=== PATIENT | female | born 2005 | race Caucasian/White ===

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

== ENCOUNTER → 2025-03-08 12:03 | Outpatient (BNVA) | payer MEDICAID, SELFPAY | PROVIDERS: PCP Nurse Practitioner; Visit Provider Nurse Practitioner | DX: F79 Unspecified intellectual disabilities (principal); F91.3 Oppositional defiant disorder; J30.89 Other allergic rhinitis | CPT/HCPCS: 80053; 84443; 85025 ==

== ENCOUNTER 2025-04-12 20:48 | Inpatient (IN) | payer MEDICAID, SELFPAY ==
[2025-04-12 20:51] VITALS: BP 132/85; PULSE 89; RESP 18; TEMP 36.5; O2SAT 100; BMI 39.6
--- NOTE | 2025-04-12 21:45 | ECG_ITS ---
[facility] Test Date: 2025-04-12 Pat Name: Alphonse Marinelli Department: Room: Gender: Female Education Specialist: : 2005 Requested By: Tamara Delarosa Order Number: [id number] Tracey MD: Quinton Rodriguez M.D. Measurements Intervals [place] Rate: 83 P: 31 AL: 136 QRS: 66 QRSD: 81 T: 14 QT: 352 QTc: 415 Interpretive Statements SINUS RHYTHM No previous ECG available for comparison Electronically Signed On 04-18-2025 11:52:28 CDT by Quinton Rodriguez M.D. [email or web address]
--- NOTE | 2025-04-12 21:47 | ED.C_ITS ---
HPI - Psych 2 General: Chief Complaint: Psychiatric Symptoms Stated Complaint: SI Time Seen by Provider: 04/12/25 20:50 History of Present Illness: 19-year-old female with a history of dep ression, oppositional defiant disorder, anxiety who presents to the emergency room with suicidal thoughts. She says she has been thinking of suicide a lot lately and its gotten worse today. She was having thoughts of a sibling that recently. She says she would kill herself with a gun if she could. She does not have access. Related Data Home Medications ?Medication ?Instructions ?Recorded ?Confirmed aripiprazole 5 mg tablet 5 mg PO DAILY 02/02/2503/08 prazosin 1 mg capsule 1 mg PO .HS 02/02/25 5 sertraline 50 mg tablet 50 mg PO TID 02/02/25 Previous Rx's ?Medication ?Instructions ?Recorded azelastine 137 mcg (0.1 %) nasal 2 spray intranasal BI D #30 mL 02/02/25 spray melatonin 3 mg tablet 3 mg PO .HS #30 tabs 5 norgestimate-ethinyl estradiol 1 tab PO DAILY #84 tabs 02/02/25 0.18mg/0.215mg/0.25mg-0.035mg(28)tablet (Tri-Sprintec (28)) Allergies Allergy/AdvReac Type Severity Reaction Status Date / Time No Known Allergies Allergy Verified 03/08/25 11:38 Review of Systems 2 Narrative: Constitutional symptoms: Negative except as documented in HPI. Skin symptoms: Negative except as documented in HPI. Eye symptoms: Negative except as documented in HPI. ENMT symptoms: Negative except as documented in HPI. Respiratory symptoms: Negative except as documented in HPI. Cardiovascular symptoms: Negative except as documented in HPI. Gastrointestinal symptoms: Negative except as documented in HPI. Genitourinary symptoms: Negative except as documented in HPI. Musculoskeletal symptoms: Negative except as documented in HPI. Neurologic symptoms: Negative except as documented in HPI. Psychiatric symptoms: Negative except as documented in HPI. Endocrine symptoms: Negative except as documented in HPI. PFSH ED 2 PFSH: Medical History (Updated 04/12/25 @ 21:50 by Tamara De Guzman MD) Oppositional defiant disorder Generalized anxiety disorder Pneumonia Cerumen impaction Oral contraceptive pill surveillance Sleep disorder Environmental and seasonal allergies Surgical History No history of previous surgery Family History Other Adopted Social History Smoking and tobacco/nicotine status: former use of tobacco/nicotine Second hand smoke exposure: No Alcohol intake: never Substance/Drug Use: never Adopted: Yes Caregiver/support person: Yes Lives independently: No Household members: caregiver Housing: House Marital status: Single Number of children: 0 Highest education level completed: 12th Grade, No Diploma service: No Current occupational status: disabled Pets and animals: No Do you think of yourself as: Straight/Heterosexual Current gender identity: Female Female Reproductive History: Date of last menstrual period: 04/11/25 Physical Exam 2 Narrative: EXAM NARRATIVE: General: Alert, no acute distress. Skin: Warm, dry. Head: Normocephalic, atraumatic. Neck: Supple, trachea midline. Eye: Extraocular movements are intact. Ears, nose, mouth and throat: mucosa moist. Cardiovascular: Regular, Normal peripheral perfusion. Respiratory: Lungs are clear to auscultation, respirations are non-labored, breath sounds are equal, Symmetrical chest wall expansion. Gastrointestinal: Soft, Nontender, Non distended Musculoskeletal: Normal ROM, no deformity. Neurological: Alert and oriented, No focal neurological deficit observed. Psychiatric: Cooperative, expresses suicidal thoughts. Course 2 Vital Signs: Vital signs: Vital Signs Temperature 97.7 F 04/12/25 20:51 Pulse Rate 89 04/12/25 20:51 Respiratory Rate 18 04/12/25 20:51 Blood Pressure 132/85 04/12/25 20:51 Pulse Oximetry 100 04/12/25 20:51 Oxygen Delivery Me thod Room Air 04/12/25 20:51 MDM - Psych Medical Decision Making Differential diagnosis: Patient with reported depression and suicidal ideation. concerns for infection, alcohol intoxication, cardiac issues or other medical problems prior to psychiatric admission. Workup: labwork, ekg ordered to evaluate the pathologies and to clear the patient medically prior to psychiatric admission Lab Review: Laboratory results were reviewed and interpreted by myself the emergency room physician. - Medically cleared. - EKG shows no ischemic changes. - Blood alcohol level is negative, -Tylenol and salicylate levels are negative. - Drug screen is negative - No signs of infection, urinalysis clear and white count is not elevated - No anemia. - BUN and creatinine are within normal limits. Consultation: I spoke with Dr. Gutierrez who is on-call for psychiatry who agrees to admission Assessment and plan: Depression Suicidal ideation -Admission to neuropsychiatric unit for continued evaluation and treatment. - All lab work was reviewed and interpreted personally by myself, the ER physician - Evaluation and treatment of this problem were appropriate in the emergency setting Lab Data 04/12/25 22:27 04/12/25 22:17 Laboratory Results WBC 10.28 10^3/uL (4.5-13.0) 04/12/25 22:27 Corrected WBC Cancelled 04/12/25 21:15 RBC 4.64 10^6/uL (3.85-5.65) 04/12/25 22:27 Hgb 12.90 g/dL (12.4-14.8) 04/12/25 22:27 Hct 39.8 % (36-47) 04/12/25 22:27 MCV 85.8 fl (85-98) 04/12/25 22: MCH 27.8 pg (27-33) 04/12/25 22: MCHC 32.4 g/dL (30-55) 04/12/25 22:27 RDW 13.2 % (12.1-15.1) 04/12/25 22:27 Plt Count 360 10^3/cmm (157-399) 04/12/25 22:27 MPV 9.0 fL (7.4-10.4) 04/12/25 22:27 Gran % Cancelled 04/12/25 21:15 Neut % (Auto) 66.6 % 04/12/25 22:27 Lymph % (Auto) 23.2 % 04/12/25 22:27 [place] % (Auto) 8.9 % 04/12/25 22: Eos % (Auto) 0.6 % 04/12/25 22: Baso % (Auto) 0.3 % 04/12/25 22: Neut # (Auto) 6.85 10^3/uL (1.8-8.0) 04/12/25 22:27 Lymph # (Auto) 2.4 10^3/uL (1.5-6.5) 04/12/25 22:27 [place] # (Auto) 0.9 10^3/uL (0.2-0.9) 04/12/25 22:27 Eos # (Auto) 0.1 10^3/uL (0.0-0.8) 04/12/25 22:27 Baso # (Auto) 0.0 10^3/uL (0.0-0.1) 04/12/25 22:27 Absolute Gran (auto) Cancelled 04/12/25 21:15 Nucleated RBC % (auto) 0 % 04/12/25 22: Nucleated RBCs # 0.0 /100WBC 04/12/25 22:27 Sodium 140 mmol/L (136-145) 04/12/25 22:17 Potassium 4.1 mmol/L (3.5-5.1) 04/12/25 22:17 Chloride 104 mmol/L (98-107) 04/12/25 22:17 Carbon Dioxide 22 mmol/L (22-29) 04/12/25 22:17 Anion Gap 18.1 (5-19) 04/12/25 22:17 BUN 11 mg/dL (6-20) 04/12/25 22:17 Creatinine 0.7 mg/dL (0.5-0.9) 04/12/25 22:17 GFR Calculation 107.8 mL/min (90-130) 04/12/25 22:17 Glucose 91 mg/dL (65-115) 04/12/25 22:17 Calculated Osmolality 289 mOsm/kg (285-295) 04/12/25 22:17 Calcium 9.3 mg/dL (8.5-10.5) 04/12/25 22:17 Total Bilirubin 0.2 mg/dL (0.15-1.2) 04/12/25 22:17 AST 28 U/L (0-32) 04/12/25 22:17 ALT 27 U/L (0-33) 04/12/25 22:17 Alkaline Phosphatase 65 U/L (35-105) 04/12/25 22:17 Total Protein 6.7 g/dL (6.6-8.7) 04/12/25 22:17 Albumin 3.9 g/dL (3.5-5.2) 04/12/25 22:17 Globulin 2.8 g/dL (1.3-4.6) 04/12/25 22:17 TSH 2.96 uIU/mL (0.27-4.20) 04/12/25 22:17 Salicylates < 0.3 mg/dL (3-10) L 04/12/25 22:17 Acetaminophen < 5.0 ug/mL (10-30) L 04/12/25 22:17 Ethyl Alcohol < 10 mg/dL (0-10) 04/12/25 22:17 All radiology interpretation(s) finalized by discharge Discharge Plan Discharge Patient Disposition: Admitted As Inpatient Clinical Impression: Suicidal ideation, Depression Condition: Stable Coding Level of Care Code ED Inclusion Special Education Teacher for Carlyn Grullon
[2025-04-12 22:31] LABS: Basophils % 0.3 %; Eosinophils # 0.1 10^3/uL (0.0-0.8); Eosinophils % 0.6 %; Hematocrit 39.8 % (36-47); Lymphocytes # 2.4 10^3/uL (1.5-6.5); Lymphocytes % 23.2 %; Mean Corpuscular HGB Conc 32.4 g/dL (30-55); Mean Corpuscular Hemoglobin 27.8 pg (27-33); Mean Corpuscular Volume 85.8 fl (85-98); Monocytes # 0.9 10^3/uL (0.2-0.9); Monocytes % 8.9 %; Neutrophils # 6.85 10^3/uL (1.8-8.0); Neutrophils % 66.6 %; Nucleated Red Blood Cells % 0 %; Platelet Count 360 10^3/cmm (157-399); Red Blood Count 4.64 10^6/uL (3.85-5.65); Red Cell Distribution Width 13.2 % (12.1-15.1); White Blood Count 10.28 10^3/uL (4.5-13.0)
[2025-04-12 22:53] LABS: Alanine Aminotransferase 27 U/L (0-33); Albumin Level 3.9 g/dL (3.5-5.2); Alkaline Phosphatase 65 U/L (35-105); Anion Gap 18.1 (5-19); Aspartate Amino Transferase 28 U/L (0-32); Blood Urea Nitrogen 11 mg/dL (6-20); Calcium 9.3 mg/dL (8.5-10.5); Carbon Dioxide 22 mmol/L (22-29); Chloride 104 mmol/L (98-107); Creatinine Clr Calc Pharmacy 175.8715; Globulin 2.8 g/dL (1.3-4.6); Glomerular Filtration Rate 107.8 mL/min (90-130); Glucose 91 mg/dL (65-115); Osmolality Calculated 289 mOsm/kg (285-295); Potassium 4.1 mmol/L (3.5-5.1); Sodium 140 mmol/L (136-145); Thyroid Stimulating Hormone 2.96 uIU/mL (0.27-4.20); Total Bilirubin 0.2 mg/dL (0.15-1.2); Total Protein 6.7 g/dL (6.6-8.7)
[2025-04-12 23:05] LABS: Acetaminophen < 5.0 ug/mL (10-30); Alcohol Level < 10 mg/dL (0-10); Salicylate < 0.3 mg/dL (3-10)
--- NOTE | 2025-04-12 23:52 | PC.NURSE ---
96 Hour Involuntary Hold Patient Rights have been reviewed with the patient and a copy of the same has been provided to her. Vehicle Damage Appraiser Kyle Taylor was present at chair side during the presentation of Rights.
--- NOTE | 2025-04-12 23:55 | PC.NURSE ---
ER Lpn Medical Assistant, Jadyn, received a call from patient's Guardian stating that when the patient becomes upset, she starts accusing male staff of being inappropriate towards her.
[2025-04-13 00:14] VITALS: BP 120/83; PULSE 92; RESP 18; TEMP 36.6; O2SAT 98
--- NOTE | 2025-04-13 00:50 | PC.ADMIT ---
[address] Admission Note: The patient,Alphonse Marinelli,19 y/o, was given written information regarding hospital policies, unit procedures and contact persons. Patient's smoking status: former smoker. Vital Signs - 8 hr 04/12/25 20:51 04/13/25 00:16 Temperature 97.7 F Pulse Rate 89 Respiratory Rate 18 Blood Pressure 132/85 Pulse Oximetry 100 Oxygen Delivery Method Room Air Room Air Pt. stated she was having SI. Pt. says her brother past away about one year ago d/t alcohol posioning. Brother was 20 y/o. Pt. stated when she lived with her parents she threatened to kill them and other family members and that is why she is living in a [facility] house. Pt. says her parents have nothing to do with her anymore because of this. Pt. has some cuts on her left lower calf that are straight across states she did this with a razor blade. Pt. is very quite and seems to have some intellectual disablities. Pt. stated she has not taken her prescription medications in about a week. Pt. says she is unable to read, someone has to read to her, but she can write some.
[2025-04-13 04:52] VITALS: BP 104/65; PULSE 86; RESP 17; TEMP 36.8; O2SAT 98
--- OUTSIDE RECORDS SUMMARY | 2025-04-13 06:17 | XMS_ITS | Encounter Summary ---
Author Organization [facility] Address [address] [place] [address] Care Team Providers Care Competency Evaluated Nurse Aide Name Role Phone Gisela Porras MD Primary Care Provider Encounter Details Date Type Department Care Team (Late st Contact Info) Description 10/19/2007 Outpatient Historical [facility] Ophthalmology 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
--- OUTSIDE RECORDS SUMMARY | 2025-04-13 06:17 | XMS_ITS | Encounter Summary ---
Author Organization [facility] Address [address] [place] [address] Care Team Providers Care Wind Energy Technician Name Role Phone Gisela Porras MD Primary Care Provider Encounter Details Date Type Department Care Team (Latest Contact Info) Description 08/08/2006 Outpatient Historical [facility] Monroe Rdz MD NO ADDRESS ON FILE Acute Upper Respiratory Infections of Unspecified Site (Primary Dx) Social History Tobacco Use Types Packs/Day Years Used Date Smoking Tobacco: Never Assessed Comments Unknown Sex and Gender Information Value Date Recorded Sex Assigned at Not on file 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
--- OUTSIDE RECORDS SUMMARY | 2025-04-13 06:17 | XMS_ITS | Encounter Summary ---
Author Organization [facility] Address [address] [facility] [place] [address] Care Team Providers Care Spinning Lathe Operator Automatic Name Role Phone Gisela Porras MD Primary Care Provider Encounter Details Date Type Department Care Team (Latest Contact Info) Description 2005 Outpatient Historical [facility] acks [address] 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 Gender Identity Not on file Sexual Orientation Not on file documented as of this encounter Plan of Treatment Not on file documented as of this encounter Visit Diagnoses Diagnosis Routine child health exam- Primary Routine or child health check Need for prophylactic vaccination against Hemophilus influenza type B (Hib) Need for prophylactic vaccination against Streptococcus pneumoniae (pneumococcus) Need for prophylactic vaccination against streptococcus pneumoniae (pneumococcus) Need for prophylactic vaccination and inoculation against other combinations of diseases documented in this encounter Care Teams Spinning Lathe Operator Automatic Relationship Specialty Start Date End Date Gisela Porras MD [address] [facility] [address] [place] [address] PCP - General Family Practice 11/04/16 documented as of this encounter
--- OUTSIDE RECORDS SUMMARY | 2025-04-13 06:17 | XMS_ITS | Encounter Summary ---
Author Organization [facility] Address [address] [place] [address] Care Team Providers Care Coil Machine Operator Name Role Phone Gisela Porras MD Primary Care Provider Encounter Details Date Type Department Care Team (Late st Contact Info) Description 2005 Inpatient Historical [facility] Monroe Rdz MD NO ADDRESS ON FILE SINGL BORN IN HOSP-NO C/DELIVERY (Primary Dx) Social History Tobacco Use Types Packs/Day Years Used Date Smoking Tobacco: Never Assessed Comments Unknown Sex and Gender Information Value Date Recorded Sex Assigned at Not on file Legal Sex Female 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 Gender Identity Not on file Sexual Orientation Not on file documented as of this encounter Plan of Treatment Not on file documented as of this encounter Procedures Procedure Name Priority Date/Time Associated Diagnosis Comments METABOLIC SCREEN Routine 2005 12:15 AM PRECISION LATHE OPERATOR POC GLUCOSE Routine 2005 8:49 PM PRECISION LATHE OPERATOR POC GLUCOSE Routine 2005 3:41 PM PRECISION LATHE OPERATOR POC GLUCOSE Routine 2005 3:10 PM PRECISION LATHE OPERATOR DRUG SCREEN, MECONIUM Routine 2005 10:03 AM PRECISION LATHE OPERATOR documented in this encounter Results * METABOLIC SCREEN (2005 12:15 AM PRECISION LATHE OPERATOR) PKU Sent to Reference Lab INTERFACE SYSTEM 2005 12:1 5 AM PRECISION LATHE OPERATOR us Monroe Rdz MD CHEMISTRY ORDERABLES Final Res ult Performing Organization Address [facility] Co de Phone Number INTERFACE SYSTEM Refer to clinic/hospital department * POC GLUCOSE (2005 8:49 PM PRECISION LATHE OPERATOR) GLUCOSE POC 72 50 - 80 mg/dL INTERFACE SYSTEM 2005 8:49 PM PRECISION LATHE OPERATOR us Monroe Rdz MD POINT OF CARE TESTING Final Re sult Performing Organization Address [facility] de Phone Number INTERFACE SYSTEM Refer to clinic/hospital department * POC GLUCOSE (2005 3:41 PM PRECISION LATHE OPERATOR) GLUCOSE POC 62 50 - 80 mg/dL INTERFACE SYSTEM 2005 3:41 PM PRECISION LATHE OPERATOR us Jamir Hilton MD POINT OF CARE TESTING Analia l Result Performing Organization Address [facility] de Phone Number INTERFACE SYSTEM Refer to clinic/hospital department * (ABNORMAL) POC GLUCOSE (2005 3:10 PM PRECISION LATHE OPERATOR) GLUCOSE POC 48(L) 50 - 80 mg/dL INTERFACE SYSTEM 2005 3:10 PM PRECISION LATHE OPERATOR us Jamir Hilton MD POINT OF CARE TESTING Analia l Result Performing Organization Address [facility] de Phone Number INTERFACE SYSTEM Refer to clinic/hospital department * DRUG SCREEN, MECONIUM (2005 10:03 AM PRECISION LATHE OPERATOR) DRUG SCREEN, MECONIUM Sent to Reference Lab INTERFACE SYSTEM 2005 10:0 3 AM PRECISION LATHE OPERATOR us Jamir Hilton MD BODY FLUIDS AND STOOLS COM Final Result INTERFACE SYSTEM Refer to clinic/hospital department documented in this encounter Visit Diagnoses Diagnosis Single liveborn, born in hospital, delivered without mention of delivery- Primary documented in this encounter Care Teams Coil Machine Operator Relationship Specialty Start Date End Date Gisela Porras MD [address] [address] PCP - General Family Practice 11/04/16 documented as of this encounter
--- OUTSIDE RECORDS SUMMARY | 2025-04-13 06:17 | XMS_ITS | Encounter Summary ---
Author Organization [facility] Address [address] [place] [address] Care Team Providers Care Patient Registration Specialist Name Role Phone Gisela Porras MD Primary Care Provider Encounter Details Date Type Department Care Team (Latest Contact Info) Description 01/01/2006 Outpatient Historical [facility] Ophthalmology 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
--- OUTSIDE RECORDS SUMMARY | 2025-04-13 06:17 | XMS_ITS | Encounter Summary ---
Author Organization [facility] Address [address] [facility] [place] [address] Care Team Providers Care Stem Roller Name Role Phone Gisela Porras MD Primary Care Provider Encounter Details Date Type Department Care Team (Latest Contact Info) Description 11/24/2008 Inpatient Historical [facility] Outpatient Surgery [address] [facility] [place] [address] Jamir Reyes, DDS [address] [place] [address] Unspecified Dental Caries (Primary Dx) Social History Tobacco Use Types Packs/Day Years Used Date Smoking Tobacco: Never Assessed Comments Unknown Sex and Gender Information Value Date Recorded Sex Assigned at Not on file Legal 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
--- OUTSIDE RECORDS SUMMARY | 2025-04-13 06:17 | XMS_ITS | Encounter Summary ---
Author Organization [facility] Address [address] [facility] [address] Care Team Providers Care Lab Animal Technician Name Role Phone Gisela Porras MD Primary Care Provider [phone] Encounter Details Date Type Department Care Team (Latest Contact Info) Description 2005 Outpatient Historical [facility] [address] 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
--- OUTSIDE RECORDS SUMMARY | 2025-04-13 06:17 | XMS_ITS | Encounter Summary ---
Author Organization [facility] Address [address] [facility] [place] [address] Care Team Providers Care Athlete Marketing Agent Name Role Phone Gisela Porras MD Primary Care Provider Encounter Details Date Type Department Care Team (Latest Contact Info) Description 05/06/2006 Outpatient Historical [facility] [address]ks [address] 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 Gender Identity Not on file Sexual Orientation Not on file documented as of this encounter Plan of Treatment Not on file documented as of this encounter Visit Diagnoses Diagnosis Routine child health exam- Primary Routine infant or child health check Need for prophylactic vaccination against Streptococcus pneumoniae (pneumococcus) Need for prophylactic vaccination against streptococcus pneumoniae (pneumococcus) Need for prophylactic vaccination and inoculation against other combinations of diseases documented in this encounter Care Teams Athlete Marketing Agent Relationship Specialty Start Date End Date Gisela Porras MD [address] [facility] [address] [place] [address] PCP - General Family Practice 11/04/16 documented as of this encounter
--- OUTSIDE RECORDS SUMMARY | 2025-04-13 06:17 | XMS_ITS | Encounter Summary ---
Author Organization [facility] Address [address] [facility] [place] [address] Care Team Providers Care Steel Wheel Engraver Name Role Phone Gisela Porras MD Primary Care Provider [phone] Encounter Details Date Type Department Care Team (Latest Contact Info) Description 2005 Outpatient Historical [facility] acks [address] 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
--- OUTSIDE RECORDS SUMMARY | 2025-04-13 06:17 | XMS_ITS | Clinical Summary ---
Author Organization [facility] Address [address] [facility] [place] [address] Care Team Providers Care Community Administrator Name Role Phone Gisela Porras MD Primary Care Provider Allergies No known active allergies Medications medroxyPROGESTERo ne (DEPO-PROVERA) 150 mg/mL SyringeIndication s:Encounter for initial prescription of contraceptive pills Inject 1 mL (150 mg) by intramuscular injection every 90 days. 1 mL 3 02/10/20 19 Active fluticasone propionate (FLONASE) 50 mcg/spray [place], Suspension nasal inhaler Administer 2 Sprays in each nostril daily. 16 Gram 2 05/17/20 19 Active montelukast (SINGULAIR) 5 mg Tablet, Chewable Take 1 Tab (5 mg) by mouth daily.. 30 Tablet 2 05/17/20 19 Active azithromycin (ZITHROMAX) 200 mg/5 mL suspensionIndicat ions:Upper respiratory tract infection, unspecified type,Acute bronchitis, unspecified organism Take 2 tsp now then 1 tsp x 4 days po. 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 Oppositional defiant disorder, mild 02/09/2019 Generalized anxiety disorder 02/09/2019 Persistent depressive disord er with anxious distress, currently mild 02/09/2019 Intellectual disability 02/09/2019 Heart murmur 03/17/2013 Regular astigmatism 09/27/2009 Unspecified congenital cataract Myopia Patient denies relevant medical history Delayed milestones Immunizations Immunization Administration Dates Next Due (M-M-R II/PRIORIX)(12 MO UP) MEASLES, MUMPS AND RUBELLA VIRUS VACCINE, 0.5 ML IM/SUBCUT 05/18/2007 (VARIVAX)(12 MOS UP)VARICELL A VIRUS VACCINE (PF) 0.5 ML, SUB CUT 05/18/2007 Dt Dtp Dtap Vaccine 05/18/2007, 6,03/18/2006,2005 HIB, Unspecified Formulation 05/18/2007,03/18/20 06,2005 Hepatitis B Vaccine 05/06/2006,03/18/2006,2005 IPV/OPV 05/06/2006,03/18/2006,2005 Pneumococcal 7-valent conjug ate vaccine IM 05/06/2006,03/18/2006,2005 Family History Medical History Relation Name Comments Amblyopia Neg Hx Blindness Neg Hx Cataract Neg Hx Detachment/Tears Neg Hx Glaucoma Neg Hx Macular Degen Neg Hx Strabismus Neg Hx Social History Tobacco Use Types Packs/Day Years Used Date Smoking Tobacco: Never Comments No Sex and Gender Information Value Date Recorded Sex Assigned at Not on file 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 Gender Identity Not on file Sexual Orientation Not on file Occupation Industry Job Start Date Job End Date Not on file Not on file Not on file Not on file Last Filed Vital Signs Vital Sign Reading Time Taken Comments Blood Pressure 100/60 05/17/2019 3:22 PM CDT Pulse 88 05/17/2019 3:22 PM CDT Temperature 36.4 C (97.6 F) 05/17/2019 3:22 PM CDT Respiratory Rate 20 05/17/2019 3:22 PM CDT Oxygen Saturation 98% 05/17/2019 3:22 PM CDT Inhaled Oxygen Concentration - - Weight 40.4 kg (89 lb) 05/17/2019 3:22 PM CDT Height 146.1 cm (4' 9.5 ) 05/17/2019 3:22 PM CDT Body Mass Index 18.93 05/17/2019 3:22 PM CDT Body Mass Index Percentile 47.90% 05/17/2019 3:2 2 PM CDT Growth Chart: CDC (Girls, 2- 20 Years) Plan of Treatment Health Maintenance Due Date Last Done Comments HEPATITIS B VACCINES (4 of 4 - 4-dose series) 05/13/2006 05/06/2006, 03/18/2006, 2005 CHLAMYDIA SCREENING (ANNUAL) 11-24 YEARS 2016 DTAP/TDAP/TD VACCINES (5 - Tdap) 2016 05/18/2007, 05/06/2006, 03/18/2006, Additional history exists HPV VACCINES (1 - 3-dose series) 2020 INFLUENZA VACCINE (#1) 2024 Preventative Visit-Managed Medicaid 2024 05/06/2006, 03/18/2006, 2005, Additional history exists Insurance [place] Care Teams Community Administrator Relationship Specialty Start Date End Date Gisela Porras MD [address] [address] PCP - General Family Practice 11/04/16
--- OUTSIDE RECORDS SUMMARY | 2025-04-13 06:17 | XMS_ITS | Encounter Summary ---
Author Organization [facility] Address [address] [facility] [place] [address] Care Team Providers Care Supervisor Slitting And Shipping Name Role Phone Gisela Porras MD Primary Care Provider Encounter Details Date Type Department Care Team (Latest Contact Info) Description 2005 Outpatient Historical [facility] acks [address] 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
--- OUTSIDE RECORDS SUMMARY | 2025-04-13 06:17 | XMS_ITS | Encounter Summary ---
Author Organization [facility] Address [address] [place] [address] Care Team Providers Care Digital Director Name Role Phone Gisela Porras MD Primary Care Provider [phone] Encounter Details Date Type Department Care Team (Latest Contact Info) Description 03/18/2006 Outpatient Historical [facility] ac[address] 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
--- OUTSIDE RECORDS SUMMARY | 2025-04-13 06:17 | XMS_ITS | Encounter Summary ---
Author Organization [facility] Address [address] [place] [address] Care Team Providers Care Manual Tester Name Role Phone Gisela Porras MD Primary Care Provider Encounter Details Date Type Department Care Team (Latest Contact Info) Description 01/28/2006 Outpatient Historical [address] [place] [address] Frank Stanton MD NO ADDRESS ON FILE Infectious Colitis, Enteritis, and Gastroenteritis (Primary Dx); Edema Social History Tobacco Use Types Packs/Day Years Used Date Smoking Tobacco: Never Assessed Comments Unknown Sex and Gender Information Value Date Recorded Sex Assigned at Not on file 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
--- OUTSIDE RECORDS SUMMARY | 2025-04-13 06:17 | XMS_ITS | Encounter Summary ---
Author Organization [facility] Address [address] [place] [address] Care Team Providers Care Impregnator And Drier Helper Name Role Phone Gisela Porras MD Primary Care Provider Encounter Details Date Type Department Care Team (Latest Contact Info) Description 01/29/2006 Outpatient Historical [address] [place] [phone] Monroe Rdz MD NO ADDRESS ON FILE Infectious Colitis, Enteritis, and Gastroenteritis (Primary Dx); Edema Social History Tobacco Use Types Packs/Day Years Used Date Smoking Tobacco: Never Assessed Comments Unknown Sex and Gender Information Value Date Recorded Sex Assigned at Not on file 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
--- OUTSIDE RECORDS SUMMARY | 2025-04-13 06:17 | XMS_ITS | Encounter Summary ---
Author Organization [facility] Address [address] [place] [address] Care Team Providers Care Occupational Medicine Specialist Name Role Phone Gisela Porras MD Primary Care Provider [phone] Encounter Details Date Type Department Care Team (Latest Contact Info) Description 10/10/2006 Outpatient Historical [facility] [address] [place] [address] Fabi Briones MD NO ADDRESS ON FILE Infectious Colitis, Enteritis, and Gastroenteritis (Primary Dx) Social History Tobacco Use Types Packs/Day Years Used Date Smoking Tobacco: Never Assessed Comments Unknown Sex and Gender Information Value Date Recorded Sex Assigned at Not on file 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
--- OUTSIDE RECORDS SUMMARY | 2025-04-13 06:17 | XMS_ITS | Encounter Summary ---
Author Organization [facility] Address [address] [place] [address] Care Team Providers Care Senior National Account Manager Name Role Phone Gisela Porras MD Primary Care Provider Encounter Details Date Type Department Care Team (Latest Contact Info) Description 10/13/2006 Outpatient Historical [facility] 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
--- OUTSIDE RECORDS SUMMARY | 2025-04-13 06:17 | XMS_ITS | Encounter Summary ---
Author Organization [facility] Address [address] [place] [address] Care Team Providers Care Engagement Manager Name Role Phone Gisela Porras MD Primary Care Provider [phone] Encounter Details Date Type Department Care Team (Late st Contact Info) Description 10/10/2006 Outpatient Historical [facility] Cruzito Mccord, DO [address] [place], [place] [phone] Vomiting Alone (Primary Dx) Social History Tobacco Use Types Packs/Day Years Used Date Smoking Tobacco: Never Assessed Comments Unknown Sex and Gender Information Value Date Recorded Sex Assigned at Not on file Legal Sex Female 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 Gender Identity Not on file Sexual Orientation Not on file documented as of this encounter Plan of Treatment Not on file documented as of this encounter Procedures Procedure Name Priority Date/Time Associated Diagnosis Comments URINALYSIS MICROSCOPY ONLY Routine 10/10/2006 2:23 PM BRICK VENEER MAKER URINALYSIS W/REFLEX MICROSCOPIC Routine 10/10/2006 2:23 PM BRICK VENEER MAKER documented in this encounter Results * (ABNORMAL) URINALYSIS MICROSCOPY ONLY (10/10/2006 2:23 PM BRICK VENEER MAKER) WBC URINE None Seen 0 - 2 INTERFACE SYSTEM RBC UA None Seen 0 - 2 INTERFACE SYSTEM HYALINE CAST None Seen 0 - 2 INTERFA CE SYSTEM BACTERIA UA Small(A) None Seen INTERFAC E SYSTEM 10/10/2006 2:23 PM BRICK VENEER MAKER us Cruzito Mujica DO URINE ORDERABLES Final Result Performing Organization Address City/[facility] Co de Phone Number INTERFACE SYSTEM Refer to clinic/hospital department * (ABNORMAL) URINALYSIS (10/10/2006 2:23 PM BRICK VENEER MAKER) COLOR UA Yellow Straw INTERFACE SYSTEM Comment:CATH SPECIMEN 2CC CLARITY UA Clear Clear INTERFACE SYSTEM LEUKOCYTE ESTERASE UA NEGATIVE NEGATIVE INTERFACE SYSTEM NITRITE UA NEGATIVE NEGATIVE INTERFACE SYSTEM PH UA 5.5 5.0 - 9.0 INTERFACE SYSTEM PROTEIN UA NEGATIVE NEGATIVE INTERFACE SYSTEM Comment: As of 05 positive protein results obtained on routine urinalysis will not be confirmed by sulfosalicylic acid (SSA) precipitation. Current methodology for protein detection is highly sensitive for detection of albumin; therefore, confirmation is not necessary. GLUCOSE UA NEGATIVE NEGATIVE INTERFACE SYSTEM KETONES UA NEGATIVE NEGATIVE INTERFACE SYSTEM UROBILINOGEN UA 0.2 0.2 INTE RFACE SYSTEM BILIRUBIN UA NEGATIVE NEGATIVE INTERFA CE SYSTEM BLOOD UA NEGATIVE NEGATIVE INTERFACE SYSTEM SPECIFIC GRAVITY UA 1.010 1.005 - 1.030 INTERFACE SYSTEM CLINITEST NEGATIVE INTERFACE SYSTEM MICRO EXAM Yes(A) No INTERFACE SYSTEM 10/10/2006 2:23 PM BRICK VENEER MAKER us Cruzito Mujica DO URINE ORDERABLES Final Result Performing Organization Address City/[facility] Co de Phone Number INTERFACE SYSTEM Refer to clinic/hospital department documented in this encounter Visit Diagnoses Diagnosis Vomiting alone- Primary documented in this encounter Care Teams Engagement Manager Relationship Specialty Start Date End Date Gisela Porras MD [address] [facility] [address] [place] [address] PCP - General Family Practice 11/04/16 documented as of this encounter
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
--- NOTE | 2025-04-13 09:13 | PC.NURSE ---
housing case manager, Elizabeth, spoke to guardian. at this time, guardian is requesting patient have no phone privileges. will relay request to Dr. Gutierrez
[2025-04-13 11:40] LABS: Bilirubin Urine Negative (Negative); Blood Urine 3+ (Negative); Glucose Urine UA Negative (Normal); Ketones Urine Negative (Negative); Leukocyte Esterase Urine Negative (Negative); Nitrate Urine Negative (Negative); Protein Urine Negative (Negative); Specific Gravity, Urine 1.009 (1.005-1.030); Urine Appearance Clear (CLEAR); Urine Color Yellow (Yellow); Urobilinogen Urine 0.2 mg/dL (Negative)
[2025-04-13 11:44] LABS: Add Urine Microscopic? YES; Bacteria Urine None Seen /hpf; Hyaline Casts Urine 0-4 /lpf; RBC Urine >100 /hpf (0-2); Squamous Epithelial Cell Urine 0-5 /hpf (0-5); WBC Urine 0-5 /hpf (0-5)
[2025-04-13 11:46] LABS: HCG Qualitative Urine. Negative (Negative)
[2025-04-13 11:51] LABS: Add Urine Culture? Yes
[2025-04-13 11:59] LABS: Amphetamines Screen Urine Negative (Negative); Barbiturates Screen Urine Negative (Negative); Benzodiazepines Screen Urine Negative (Negative); Cocaine Screen Urine Negative (Negative); Opiate Screen Urine Negative (Negative); PCP Screen Urine Negative (Negative); THC Screen Urine Negative (Negative)
[2025-04-13 14:00] VITALS: BP 111/68; PULSE 88; RESP 16; TEMP 36.6; O2SAT 97
[2025-04-13 19:37] VITALS: BP 121/80; PULSE 83; RESP 17; TEMP 36.7; O2SAT 97
[2025-04-13] MEDS: hyDROXYzine 25 mg Capsule 50 MG PO (21:03)
[2025-04-13] MEDS: trazodone 50 mg Tablet PO (21:03)
[2025-04-14 06:00] VITALS: BP 92/58; PULSE 90; RESP 18; TEMP 36.7; O2SAT 94
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
[2025-04-14 14:00] VITALS: BP 110/76; PULSE 88; RESP 16; TEMP 36.8; O2SAT 97
[2025-04-14] MEDS: trazodone 50 mg Tablet PO (21:11)
[2025-04-14 21:27] VITALS: BP 109/68; PULSE 87; RESP 18; TEMP 36.8; O2SAT 99
[2025-04-15 06:00] VITALS: BP 95/65; PULSE 88; RESP 18; O2SAT 98
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
[2025-04-15 14:00] VITALS: BP 120/76; PULSE 109; RESP 17; TEMP 36.6; O2SAT 100
[2025-04-15] MEDS: trazodone 50 mg Tablet PO (20:19)
[2025-04-15 20:27] VITALS: BP 125/82; PULSE 82; RESP 18; TEMP 36.4; O2SAT 98
[2025-04-16 06:00] VITALS: BP 91/70; PULSE 85; RESP 16; O2SAT 97
[2025-04-16] MEDS: sertraline 100 mg Tablet 150 MG PO (13:22)
[2025-04-16 14:00] VITALS: BP 113/76; PULSE 105; RESP 18; TEMP 36.6; O2SAT 99
[2025-04-16] MEDS: ARIPiprazole 10 mg Tablet PO (14:26)
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
[2025-04-16] MEDS: trazodone 50 mg Tablet PO (20:23)
[2025-04-16 20:50] VITALS: BP 103/62; PULSE 88; RESP 16; TEMP 36.7; O2SAT 96
[2025-04-16] MEDS: prazosin 1 mg Capsule PO (21:59)
[2025-04-17 06:00] VITALS: BP 106/63; PULSE 96; RESP 16; TEMP 36.7; O2SAT 97
[2025-04-17] MEDS: sertraline 100 mg Tablet 150 MG PO (08:49)
[2025-04-17] MEDS: ARIPiprazole 10 mg Tablet PO (08:49)
--- NOTE | 2025-04-17 12:00 | PC.NURSE ---
staff from [facility] will bring in non formulary meds in the am.
[2025-04-17 14:00] VITALS: BP 92/54; PULSE 78; RESP 16; TEMP 36.7; O2SAT 98
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
--- NOTE | 2025-04-17 17:55 | PC.NURSE ---
unable to administer non formulary medciation from home do to meds not being delivered from [facility].
[2025-04-17 19:23] VITALS: BP 104/70; PULSE 96; RESP 18; TEMP 36.7; O2SAT 96
[2025-04-17] MEDS: prazosin 1 mg Capsule 2 MG PO (20:05)
[2025-04-17] MEDS: trazodone 50 mg Tablet PO (20:52)
[2025-04-18 06:00] VITALS: BP 96/68; PULSE 94; RESP 18; TEMP 36.9; O2SAT 97
[2025-04-18] MEDS: ARIPiprazole 10 mg Tablet PO (08:15)
[2025-04-18] MEDS: sertraline 100 mg Tablet 200 MG PO (08:16)
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
[2025-04-18 12:25] VITALS: BP 102/71; PULSE 102; RESP 18; TEMP 36.7; O2SAT 96
[2025-04-18 14:00] VITALS: BP 102/71; PULSE 102; RESP 18; TEMP 36.7; O2SAT 96
== END 2025-04-18 14:17 | disposition home or self-care (01) | DRG 881 ==
LOC: ER 23:49 → NP 23:58
PROVIDERS: Admitting Provider Psychiatry & Neurology Psychiatry; Emergency Provider Emergency Medicine; PCP Nurse Practitioner; Visit Provider Psychiatry & Neurology Psychiatry
DX: F32.A Depression, unspecified (principal); R45.851 Suicidal ideations; F91.3 Oppositional defiant disorder; F79 Unspecified intellectual disabilities; F43.10 Post-traumatic stress disorder, unspecified; F60.3 Borderline personality disorder; E66.01 Morbid (severe) obesity due to excess calories; Z68.38 Body mass index [BMI] 38.0-38.9, adult; Z81.8 Family history of other mental and behavioral disorders; Z81.3 Family history of other psychoactive substance abuse and dependence
CPT/HCPCS: 36415; 80053; 80306; 80307; 81001; 81025; 84443; 85025; 87086; 93005; 97150; 97165; 99285; J9999

== ENCOUNTER 2025-04-20 16:51 | Inpatient (IN) | payer MEDICAID, SELFPAY ==
[2025-04-20 16:55] VITALS: BP 114/74; PULSE 88; RESP 16; TEMP 36.9; O2SAT 98
--- NOTE | 2025-04-20 17:30 | PC.NURSE ---
[facility] staff, Carla, called in regards to patient status/dispo, no further updates available to give at this time. phone number for Carla,
[2025-04-20 17:58] LABS: Basophils % 0.3 %; Eosinophils # 0.1 10^3/uL (0.0-0.8); Eosinophils % 0.7 %; Lymphocytes # 2.3 10^3/uL (1.5-6.5); Mean Corpuscular HGB Conc 32.6 g/dL (30-55); Mean Corpuscular Volume 86.1 fl (85-98); Mean Platelet Volume 9.2 fL (7.4-10.4); Monocytes # 0.7 10^3/uL (0.2-0.9); Monocytes % 7.6 %; Neutrophils # 6.18 10^3/uL (1.8-8.0); Neutrophils % 66.1 %; Nucleated Red Blood Cells % 0 %; Platelet Count 348 10^3/cmm (157-399); Red Blood Count 4.53 10^6/uL (3.85-5.65); Red Cell Distribution Width 13.2 % (12.1-15.1); White Blood Count 9.36 10^3/uL (4.5-13.0)
--- NOTE | 2025-04-20 18:27 | PC.NURSE ---
educated pt on need for urine sample. pt states unable at this time.
[2025-04-20 18:28] LABS: Alanine Aminotransferase 39 U/L (0-33); Alkaline Phosphatase 71 U/L (35-105); Anion Gap 16.8 (5-19); Aspartate Amino Transferase 34 U/L (0-32); Blood Urea Nitrogen 12 mg/dL (6-20); Calcium 8.9 mg/dL (8.5-10.5); Carbon Dioxide 23 mmol/L (22-29); Chloride 103 mmol/L (98-107); Glomerular Filtration Rate 158.9 mL/min (90-130); Glucose 81 mg/dL (65-115); Osmolality Calculated 287 mOsm/kg (285-295); Potassium 3.8 mmol/L (3.5-5.1); Salicylate 0.4 mg/dL (3-10); Sodium 139 mmol/L (136-145); Thyroid Stimulating Hormone 1.25 uIU/mL (0.27-4.20); Total Bilirubin 0.2 mg/dL (0.15-1.2)
[2025-04-20 18:30] LABS: Acetaminophen < 5.0 ug/mL (10-30); Alcohol Level < 10 mg/dL (0-10)
[2025-04-20 18:52] LABS: HCG Qualitative Urine. Negative (Negative)
[2025-04-20 18:55] LABS: Bilirubin Urine Negative (Negative); Blood Urine Negative (Negative); Glucose Urine UA Negative (Normal); Ketones Urine Trace (Negative); Leukocyte Esterase Urine 1+ (Negative); Nitrate Urine Negative (Negative); Protein Urine Negative (Negative); Specific Gravity, Urine 1.027 (1.005-1.030); Urine Appearance Cloudy (CLEAR); Urine Color Yellow (Yellow); pH Urine 5.5 (5-7)
--- NOTE | 2025-04-20 18:55 | PC.NURSE ---
This nurse gave mother/guardian of patient an update on patient status and informed her that nurse would call with any new and pertinent updates.
[2025-04-20 18:58] LABS: Add Urine Microscopic? YES; Bacteria Urine 4+ /hpf; Hyaline Casts Urine 2.05 /lpf; RBC Urine 0-2 /hpf (0-2); WBC Urine 21-50 /hpf (0-5)
[2025-04-20 19:01] LABS: Amphetamines Screen Urine Negative (Negative); Barbiturates Screen Urine Negative (Negative); Benzodiazepines Screen Urine Negative (Negative); Cocaine Screen Urine Negative (Negative); Opiate Screen Urine Negative (Negative); PCP Screen Urine Negative (Negative); THC Screen Urine Negative (Negative)
[2025-04-20 19:11] LABS: Add Urine Culture? Yes
[2025-04-20] MEDS: ciprofloxacin 500 mg Tablet PO (19:24)
--- NOTE | 2025-04-20 19:25 | ED.C_ITS ---
HPI - Psych 2 General: Chief Complaint: Psychiatric Symptoms Stated Complaint: SI Time Seen by Provider: 04/20/25 17:05 History of Present Illness: This patient is a 19-year-old white female who presents to the emergency department with suicidal ideation. Patient states she has been having thoughts of hanging herself for 1 week now. She does have a history of depression. She states she has been taking her medications. Associated symptoms: Reports depression and suicidal ideation Related Data Home Medications ?Medication ?Instructions ?Recorded ?Confirmed Bion Tears (PF) 2 ophthalmic insert as direc ramy 04/13/25 04/13/25 Q4H PRN dry eyes Tri-Sprintec (28) 1 tab PO DAILY 04/13/2503/17 melatonin 10 mg PO BEDTIME 04/13/25 Previous Rx's ?Medication ?Instructions ?Recorded azelastine 137 mcg (0.1 %) nasal 2 spray intranasal BI D #30 mL 02/02/25 spray aripiprazole 10 mg tablet 10 mg PO DAILY 30 days #30 t abs 04/18/25 prazosin 2 mg capsule 2 mg PO BEDTIME 30 days #30 caps 04/18/25 sertraline 100 mg tablet 200 mg (2 x 100 mg) PO DAILY 30 04/18/25 days #60 tabs Allergies Allergy/AdvReac Type Severity Reaction Status Date / Time No Known Allergies Allergy Verified 03/08/25 11:38 Review of Systems 2 General: Reports: 10 or more systems reviewed and unremarkable except in HPI and below Psych: Reports: depression and suicidal ideation [facility] ED 2 PFSH: Medical History (Updated 04/20/25 @ 19:23 by Иван Henderson MD) Oppositional defiant disorder Generalized anxiety disorder Pneumonia Cerumen impaction Oral contraceptive pill surveillance Sleep disorder Environmental and seasonal allergies Surgical History No history of previous surgery Family History Other Adopted Social History Smoking and tobacco/nicotine status: former use of tobacco/nicotine Second hand smoke exposure: No Alcohol intake: never Substance/Drug Use: never Adopted: Yes Caregiver/support person: Yes Lives independently: No Household members: caregiver Housing: House Marital status: Single Number of children: 0 Highest education level completed: 12th Grade, No Diploma service: No Current occupational status: disabled Pets and animals: No Do you think of yourself as: Straight/Heterosexual Current gender identity: Female Physical Exam 2 Const: COMMON NORMALS: no acute distress, patient oriented x3 and no limitations GENERAL APPEARANCE: cooperative and comfortable HENMT: COMMON NORMALS: normocephalic, atraumatic, Normal nasal mucous membranes and turbinates present, moist oral mucous membranes and oropharynx normal HEAD & SCALP: normal to inspection, normocephalic and atraumatic F CUCO & SINUS: normal facial exam NOSE: Normal nasal mucous membranes and turbinates present Eye: COMMON NORMALS: Equal, round and reactive pupils present, EOMs intact bilaterally and conjunctivae normal GENERAL EYE: appearance normal, both eyes and all related structures CONJUNCTIVA: Yes conjunctivae normal PUPIL: Yes Equal, round and reactive pupils present Neck/C-Spine: COMMON NORMALS: supple and no JVD Chest: COMMONS NORMALS: normal inspection of the chest Resp: COMMON NORMALS: normal respiratory effort and clear to auscultation bilaterally AUSCULTATION: clear to auscultation bilaterally Cardio: COMMON NORMALS: no JVD, regular rate, regular rhythm, No gallops present (Cardio), No murmurs present (Cardio) and No rub (Cardio) RATE: r egular rate RHYTHM: regular rhythm GI: COMMON NORMALS: Normal to inspection, nondistended, normoactive bowel sounds present, Soft to palpation and non-tender AUSCULTATION: Yes normoactive bowel sounds PALPATION: Yes Soft to palpation : COMMON NORMALS: Yes no CVA tenderness BLADDER/KIDNEY EXAM: Yes no CVA tenderness Back/Pelvis: COMMON NORMALS: no CVA tenderness and thoracic and lumbar spine normal to inspection Extremity: COMMON NORMALS: normal to inspection Neuro: COMMON NORMALS: patient oriented x3 and CN's II-XII intact bilaterally Psych: COMMON NORMALS: mental status grossly normal, Normal thought process present, cooperative and speech normal APPEARANCE: Yes grossly normal A TTITUDE: Yes calm and Yes engaged ACTIVITY/MOTOR BEHAVIOR: Yes appropriate eye contact SPEECH: Yes normal speech MOOD & AFFECT: Yes euthymic mood THOUGHT PROCESS: Normal thought process present THOUGHT CONTENT: Yes Suicidality present ATTENTION/CONCENTRATION: Yes attention grossly intact MEMORY/COGNITION: Yes memory grossly intact INSIGHT: Fair insight present (Psych) JUDGEMENT: Limited judgement present (Psych) Skin: COMMON NORMALS: no rashes or lesions noted, turgor normal and no jaundice GENERAL SKIN EXAM: no rashes or lesions noted and turgor normal Course 2 Vital Signs: Vital signs: Vital Signs Temperature 98.4 F 04/20/25 16:55 Pulse Rate 88 04/20/25 16:55 Respiratory Rate 16 04/20/25 16:55 Blood Pressure 114/74 04/20/25 16:55 Pulse Oximetry 98 04/20/25 16:55 Oxygen Delivery Me thod Room Air 04/20/25 16:55 MDM - Psych Medical Decision Making Laboratory workup was normal except for the urinalysis reveals a urinary tract infection. I did give her 500 mg of ciprofloxacin p.o. for that. Patient will need to be admitted to the psychiatric unit. I discussed this case with Dr. Gan and he has accepted the patient. Patient will be transferred to the neuropsych floor shortly. She is stable. Lab Data 04/20/25 17:41 04/20/25 17:41 Laboratory Results WBC 9.36 10^3/uL (4.5-13.0) 04/20/25 17:41 RBC 4.53 10^6/uL (3.85-5.65) 04/20/25 17:41 Hgb 12.70 g/dL (12.4-14.8) 04/20/25 17:41 Hct 39.0 % (36-47) 04/20/25 17:41 MCV 86.1 fl (85-98) 04/20/25 17:41 MCH 28.0 pg (27-33) 04/20/25 17:41 MCHC 32.6 g/dL (30-55) 04/20/25 17:41 RDW 13.2 % (12.1-15.1) 04/20/25 17:41 Plt Count 348 10^3/cmm (157-399) 04/20/25 17:41 MPV 9.2 fL (7.4-10.4) 04/20/25 17:41 Neut % (Auto) 66.1 % 04/20/25 17:41 Lymph % (Auto) 25.0 % 04/20/25 17:41 [place] % (Auto) 7.6 % 04/20/25 17:41 Eos % (Auto) 0.7 % 04/20/25 17:41 Baso % (Auto) 0.3 % 04/20/25 17:41 Neut # (Auto) 6.18 10^3/uL (1.8-8.0) 04/20/25 17:41 Lymph # (Auto) 2.3 10^3/uL (1.5-6.5) 04/20/25 17:41 [place] # (Auto) 0.7 10^3/uL (0.2-0.9) 04/20/25 17:41 Eos # (Auto) 0.1 10^3/uL (0.0-0.8) 04/20/25 17:41 Baso # (Auto) 0.0 10^3/uL (0.0-0.1) 04/20/25 17:41 Nucleated RBC % (auto) 0 % 04/20/25 17:41 Nucleated RBCs # 0.0 /100WBC 04/20/25 17:41 Sodium 139 mmol/L (136-145) 04/20/25 17:41 Potassium 3.8 mmol/L (3.5-5.1) 04/20/25 17:41 Chloride 103 mmol/L (98-107) 04/20/25 17:41 Carbon Dioxide 23 mmol/L (22-29) 04/20/25 17:41 Anion Gap 16.8 (5-19) 04/20/25 17:41 BUN 12 mg/dL (6-20) 04/20/25 17:41 Creatinine 0.5 mg/dL (0.5-0.9) 04/20/25 17:41 GFR Calculation 158.9 mL/min (90-130) H 04/20/25 17:41 Glucose 81 mg/dL (65-115) 04/20/25 17:41 Calculated Osmolality 287 mOsm/kg (285-295) 04/20/25 17:41 Calcium 8.9 mg/dL (8.5-10.5) 04/20/25 17:41 Total Bilirubin 0.2 mg/dL (0.15-1.2) 04/20/25 17:41 AST 34 U/L (0-32) H 04/20/25 17:41 ALT 39 U/L (0-33) H 04/20/25 17:41 Alkaline Phosphatase 71 U/L (35-105) 04/20/25 17:41 Total Protein 7.0 g/dL (6.6-8.7) 04/20/25 17:41 Albumin 4.0 g/dL (3.5-5.2) 04/20/25 17:41 Globulin 3.0 g/dL (1.3-4.6) 04/20/25 17:41 TSH 1.25 uIU/mL (0.27-4.20) 04/20/25 17:41 HCG, Qual Negative (Negative) 04/20/25 18:30 Urine Color Yellow (Yellow) 04/20/25 18:30 Urine Appearance Cloudy (CLEAR) A 04/20/25 18:30 Urine pH 5.5 (5-7) 04/20/25 18:30 Ur Specific [place] 1.027 (1.005-1.030) 04/20/25 18:30 Urine Protein Negative (Negative) 04/20/25 18:30 Urine Glucose (UA) Negative (Normal) 04/20/25 18:30 Urine Ketones Trace (Negative) 04/20/25 18:30 Urine Blood Negative (Negative) 04/20/25 18:30 Urine Nitrate Negative (Negative) 04/20/25 18:30 Urine Bilirubin Negative (Negative) 04/20/25 18:30 Urine Urobilinogen 1.0 mg/dL (Negative) 04/20/25 18:30 Ur Leukocyte Esterase 1+ (Negative) A 04/20/25 18:30 Urine RBC 0-2 /hpf (0-2) 04/20/25 18:30 Urine WBC 21-50 /hpf (0-5) H 04/20/25 18:30 Ur Squamous Epith Cells 11-20 /hpf (0-5) H 04/20/25 18:30 Amorphous Sediment Not Reportable 04/20/25 18:30 Urine Bacteria 4+ /hpf (NONE) H 04/20/25 18:30 Hyaline Casts 2.05 /lpf 04/20/25 18:30 Salicylates 0.4 mg/dL (3-10) L 04/20/25 17:41 Urine Opiates Screen Negative ng/mL (Negative) 04/20/25 18:30 Acetaminophen < 5.0 ug/mL (10-30) L 04/20/25 17:41 Ur Barbiturates Screen Negative ng/mL (Negative) 04/20/25 18:30 Ur Phencyclidine Scrn Negative ng/mL (Negative) 04/20/25 18:30 Ur Amphetamines Screen Negative ng/mL (Negative) 04/20/25 18:30 U Benzodiazepines Scrn Negative ng/mL (Negative) 04/20/25 18:30 Urine Cocaine Screen Negative ng/mL (Negative) 04/20/25 18:30 U Marijuana (THC) Screen Negative ng/mL (Negative) 04/20/25 18:30 Ethyl Alcohol < 10 mg/dL (0-10) 04/20/25 17:41 No radiology studies performed this visit Discharge Plan Discharge Patient Disposition: Admitted As Inpatient Clinical Impression: Suicidal ideation Condition: Stable Coding Level of Care Code ED [employer] Worker for Carlyn Grullon
--- NOTE | 2025-04-20 19:40 | PC.NURSE ---
Report was called to Maya RAMOS in NPU; all questions and concerns were addressed at time of report.
--- NOTE | 2025-04-20 19:43 | PC.NURSE ---
This nurse updated Carla that patient was getting admitted. Carla stated to this nurse that she would inform patient's mother/guardian of admission status.
[2025-04-20 20:34] VITALS: BP 122/84; PULSE 87; RESP 18; TEMP 36.6; O2SAT 97
[2025-04-20 20:44] VITALS: BP 122/84; PULSE 87; RESP 18; TEMP 36.6; O2SAT 97
[2025-04-21] MEDS: trazodone 50 mg Tablet PO ×2 (01:05→20:12)
[2025-04-21 06:27] VITALS: BP 105/69; PULSE 72; RESP 17; TEMP 36.8; O2SAT 95
[2025-04-21] MEDS: ARIPiprazole 10 mg Tablet PO (08:07)
[2025-04-21] MEDS: sertraline 100 mg Tablet 200 MG PO (08:07)
[2025-04-21] MEDS: hyDROXYzine 25 mg Capsule 50 MG PO ×2 (12:28→19:39)
[2025-04-21 14:00] VITALS: BP 128/92; PULSE 101; RESP 16; TEMP 36.9; O2SAT 95
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
--- NOTE | 2025-04-21 16:38 | PC.NURSE ---
1500 pt from room 125 bed 1 informed nursing staff that pt stated she wanted to hang herself. when asked why she was feeling this way pt first response was to ask if she was getting a girl to stay with her now, but could not give reasoning why she stated she wanted to use bed cover to hang herself. this staff member removed bedding and pillow. notified doctor of incident.
[2025-04-21] MEDS: haloperidol 5 mg Tablet PO ×2 (17:21→20:33)
[2025-04-21] MEDS: OLANZapine 5 mg ODT PO (19:39)
[2025-04-21] MEDS: prazosin 1 mg Capsule 2 MG PO (20:12)
[2025-04-21 20:39] VITALS: BP 114/81; PULSE 96; RESP 17; TEMP 36.7; O2SAT 99
[2025-04-22 06:00] VITALS: BP 110/77; PULSE 88; RESP 18; TEMP 36.4; O2SAT 98
[2025-04-22] MEDS: ARIPiprazole 10 mg Tablet PO (09:32)
[2025-04-22] MEDS: sertraline 100 mg Tablet 200 MG PO (09:32)
--- NOTE | 2025-04-22 11:15 | PC.NURSE ---
during daily assesment pt states she si with plan to stab herself with a knife or shoot herself with a gun. when asked pt states their guns are all locked up at home though. pt states she is feeling better than yesterday and states she does not intend to hurt herself here.
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
[2025-04-22 14:00] VITALS: BP 116/75; PULSE 69; RESP 16; TEMP 36.6; O2SAT 98
[2025-04-22 20:03] VITALS: BP 124/80; PULSE 84; RESP 19; TEMP 36.4; O2SAT 97; BMI 38.9
[2025-04-22] MEDS: haloperidol 5 mg Tablet PO (20:32)
[2025-04-22] MEDS: prazosin 1 mg Capsule 2 MG PO (20:32)
[2025-04-22] MEDS: trazodone 50 mg Tablet PO (20:35)
[2025-04-23 06:00] VITALS: BP 108/71; PULSE 99; RESP 16; TEMP 36.7; O2SAT 96
[2025-04-23] MEDS: sertraline 100 mg Tablet 200 MG PO (08:54)
[2025-04-23] MEDS: ARIPiprazole 10 mg Tablet PO (08:54)
[2025-04-23] MEDS: hyDROXYzine 25 mg Capsule 50 MG PO ×2 (08:55→13:54)
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
[2025-04-23] MEDS: OLANZapine 5 mg ODT PO ×2 (11:40→18:47)
[2025-04-23 14:00] VITALS: BP 99/50; PULSE 69; RESP 16; TEMP 36.6; O2SAT 98
[2025-04-23 20:09] VITALS: BP 109/68; PULSE 98; RESP 17; TEMP 36.8; O2SAT 97
[2025-04-23] MEDS: prazosin 1 mg Capsule 2 MG PO (20:15)
[2025-04-23] MEDS: trazodone 50 mg Tablet PO ×2 (20:15→21:21)
[2025-04-24 06:00] VITALS: BP 100/68; PULSE 96; RESP 16; TEMP 36.7; O2SAT 98
[2025-04-24] MEDS: sertraline 100 mg Tablet 200 MG PO (07:25)
[2025-04-24] MEDS: trazodone 50 mg Tablet PO (07:25)
[2025-04-24] MEDS: haloperidol 5 mg Tablet PO (07:25)
[2025-04-24] MEDS: ARIPiprazole 10 mg Tablet PO (07:25)
[2025-04-24] MEDS: LORazepam 2 mg Tablet PO (11:36)
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
[2025-04-24 12:31] VITALS: BP 100/68; PULSE 96; RESP 16; TEMP 36.7; O2SAT 98
[2025-04-24 13:44] VITALS: RESP 17
== END 2025-04-24 14:12 | disposition home or self-care (01) | DRG 886 ==
LOC: ER 19:23 → NP 19:40
PROVIDERS: Admitting Provider Psychiatry & Neurology Psychiatry; Emergency Provider Emergency Medicine; PCP Nurse Practitioner; Visit Provider Psychiatry & Neurology Psychiatry
DX: F91.3 Oppositional defiant disorder (principal); R45.851 Suicidal ideations; F32.A Depression, unspecified; F79 Unspecified intellectual disabilities; F43.10 Post-traumatic stress disorder, unspecified; E66.01 Morbid (severe) obesity due to excess calories; Z68.39 Body mass index [BMI] 39.0-39.9, adult; Z87.891 Personal history of nicotine dependence; F34.1 Dysthymic disorder
CPT/HCPCS: 36415; 80053; 80306; 80307; 81001; 81025; 84443; 85025; 87086; 97150; 97165; 99285; J9999

== ENCOUNTER 2025-04-30 16:47 | Emergency (ER) | payer MEDICAID, SELFPAY ==
[2025-04-30 16:50] VITALS: BP 108/69; PULSE 91; RESP 18; TEMP 36.7; O2SAT 97
--- NOTE | 2025-04-30 17:10 | ED.C_ITS ---
HPI - Psych 2 General: Chief Complaint: Psychiatric Symptoms Stated Complaint: mhe Time Seen by Provider: 04/30/25 16:50 History of Present Illness: This patient is a 19-year-old white female who presents to the emergency department with suicidal ideation. Patient has been cutting on herself today. She is been cutting on her hands and forearms. She states she also drank bleach . She brought in a bottle of scrubbing bubbles which is what she states she drank out of. She states she was trying to kill herself. Associated symptoms: Reports depression and suicidal ideation Related Data Previous Rx's ?Medication ?Instructions ?Recorded azelastine 137 mcg (0.1 %) nasal 2 spray intranasal BI D #30 mL 02/02/25 spray aripiprazole 10 mg tablet 10 mg PO DAILY 30 days #30 t abs 04/18/25 prazosin 2 mg capsule 2 mg PO BEDTIME 30 days #30 caps 04/18/25 sertraline 100 mg tablet 200 mg (2 x 100 mg) PO DAILY 30 04/18/25 days #60 tabs Allergies Allergy/AdvReac Type Severity Reaction Status Date / Time No Known Allergies Allergy Verified 03/08/25 11:38 Review of Systems 2 General: Reports: 10 or more systems reviewed and unremarkable except in HPI and below Psych: Reports: depression and suicidal ideation PFSH ED 2 PFSH: Medical History (Updated 04/25/25 @ 00:01 by CONCHITA Dasilva) Oppositional defiant disorder Generalized anxiety disorder Pneumonia Cerumen impaction Oral contraceptive pill surveillance Sleep disorder Environmental and seasonal allergies Surgical History No history of previous surgery Family History Other Adopted Social History Smoking and tobacco/nicotine status: former use of tobacco/nicotine Second hand smoke exposure: No Alcohol intake: never Substance/Drug Use: never Adopted: Yes Caregiver/support person: Yes Lives independently: No Household members: caregiver Housing: House Marital status: Single Number of children: 0 Highest education level completed: 12th Grade, No Diploma service: No Current occupational status: disabled Pets and animals: No Do you think of yourself as: Straight/Heterosexual Current gender identity: Female Physical Exam 2 Const: COMMON NORMALS: no acute distress, patient oriented x3 and no limitations GENERAL APPEARANCE: cooperative and comfortable HENMT: COMMON NORMALS: normocephalic, atraumatic, Normal nasal mucous membranes and turbinates present, moist oral mucous membranes and oropharynx normal HEAD & SCALP: normal to inspection, normocephalic and atraumatic F CUCO & SINUS: normal facial exam NOSE: Normal nasal mucous membranes and turbinates present Eye: COMMON NORMALS: Equal, round and reactive pupils present, EOMs intact bilaterally and conjunctivae normal GENERAL EYE: appearance normal, both eyes and all related structures CONJUNCTIVA: Yes conjunctivae normal PUPIL: Yes Equal, round and reactive pupils present Neck/C-Spine: COMMON NORMALS: supple and no JVD Chest: COMMONS NORMALS: normal inspection of the chest Resp: COMMON NORMALS: normal respiratory effort and clear to auscultation bilaterally AUSCULTATION: clear to auscultation bilaterally Cardio: COMMON NORMALS: no JVD, regular rate, regular rhythm, No gallops present (Cardio), No murmurs present (Cardio) and No rub (Cardio) RATE: r egular rate RHYTHM: regular rhythm GI: COMMON NORMALS: Normal to inspection, nondistended, normoactive bowel sounds present, Soft to palpation and non-tender AUSCULTATION: Yes normoactive bowel sounds PALPATION: Yes Soft to palpation : COMMON NORMALS: Yes no CVA tenderness BLADDER/KIDNEY EXAM: Yes no CVA tenderness Back/Pelvis: COMMON NORMALS: no CVA tenderness and thoracic and lumbar spine normal to inspection Extremity: COMMON NORMALS: normal to inspection Neuro: COMMON NORMALS: patient oriented x3 and CN's II-XII intact bilaterally Psych: COMMON NORMALS: mental status grossly normal, Normal thought process present, cooperative and speech normal APPEARANCE: Yes grossly normal A CTIVITY/MOTOR BEHAVIOR: Yes appropriate eye contact SPEECH: Yes normal speech MOOD & AFFECT: Yes euthymic mood THOUGHT PROCESS: Normal thought process present THOUGHT CONTENT: Yes Suicidality present ATTENTION/CONCENTRATION: Yes attention grossly intact MEMORY/COGNITION: Yes memory grossly intact J UDGEMENT: Poor judgement present (Psych) Skin: COMMON NORMALS: no rashes or lesions noted, turgor normal and no jaundice GENERAL SKIN EXAM: no rashes or lesions noted and turgor normal Course 2 Vital Signs: Vital signs: Vital Signs Temperature 98.1 F 04/30/25 16:50 Pulse Rate 96 04/30/25 20:00 Respiratory Rate 18 04/30/25 16:50 Blood Pressure 108/69 04/30/25 16:50 Pulse Oximetry 96 04/30/25 20:00 Oxygen Delivery Me thod Room Air 04/30/25 20:00 MDM - Psych Medical Decision Making We do not have any psychiatric beds left at this facility therefore the patient will need to be transferred. We are currently searching for another facility for the patient. She is stable. Patient care transferred to Dr. Reyes at shift change. Lab Data 04/30/25 17:40 04/30/25 17:40 Laboratory Results WBC 8.27 10^3/uL (4.5-13.0) 04/30/25 17:40 RBC 4.65 10^6/uL (3.85-5.65) 04/30/25 17:40 Hgb 13.00 g/dL (12.4-14.8) 04/30/25 17:40 Hct 39.5 % (36-47) 04/30/25 17:40 MCV 84.9 fl (85-98) L 04/30/25 17:40 MCH 28.0 pg (27-33) 04/30/25 17:40 MCHC 32.9 g/dL (30-55) 04/30/25 17:40 RDW 13.2 % (12.1-15.1) 04/30/25 17:40 Plt Count 353 10^3/cmm (157-399) 04/30/25 17:40 MPV 9.0 fL (7.4-10.4) 04/30/25 17:40 Neut % (Auto) 59.0 % 04/30/25 17:40 Lymph % (Auto) 28.5 % 04/30/25 17:40 Worth % (Auto) 10.8 % 04/30/25 17:40 Eos % (Auto) 1.1 % 04/30/25 17:40 Baso % (Auto) 0.2 % 04/30/25 17:40 Neut # (Auto) 4.88 10^3/uL (1.8-8.0) 04/30/25 17:40 Lymph # (Auto) 2.4 10^3/uL (1.5-6.5) 04/30/25 17:40 Worth # (Auto) 0.9 10^3/uL (0.2-0.9) 04/30/25 17:40 Eos # (Auto) 0.1 10^3/uL (0.0-0.8) 04/30/25 17:40 Baso # (Auto) 0.0 10^3/uL (0.0-0.1) 04/30/25 17:40 Nucleated RBC % (auto) 0 % 04/30/25 17:40 Nucleated RBCs # 0.0 /100WBC 04/30/25 17:40 Sodium 140 mmol/L (136-145) 04/30/25 17:40 Potassium 4.3 mmol/L (3.5-5.1) 04/30/25 17:40 Chloride 104 mmol/L (98-107) 04/30/25 17:40 Carbon Dioxide 22 mmol/L (22-29) 04/30/25 17:40 Anion Gap 18.3 (5-19) 04/30/25 17:40 BUN 9 mg/dL (6-20) 04/30/25 17:40 Creatinine 0.5 mg/dL (0.5-0.9) 04/30/25 17:40 GFR Calculation 158.9 mL/min (90-130) H 04/30/25 17:40 Glucose 80 mg/dL (65-115) 04/30/25 17:40 Calculated Osmolality 288 mOsm/kg (285-295) 04/30/25 17:40 Calcium 8.9 mg/dL (8.5-10.5) 04/30/25 17:40 Total Bilirubin 0.2 mg/dL (0.15-1.2) 04/30/25 17:40 AST 56 U/L (0-32) H 04/30/25 17:40 ALT 71 U/L (0-33) H 04/30/25 17:40 Alkaline Phosphatase 82 U/L (35-105) 04/30/25 17:40 Total Protein 7.3 g/dL (6.6-8.7) 04/30/25 17:40 Albumin 4.1 g/dL (3.5-5.2) 04/30/25 17:40 Globulin 3.2 g/dL (1.3-4.6) 04/30/25 17:40 TSH 1.52 uIU/mL (0.27-4.20) 04/30/25 17:40 HCG, Qual Negative (Negative) 04/30/25 17:00 Urine Color Yellow (Yellow) 04/30/25 17:00 Urine Appearance Cloudy (CLEAR) A 04/30/25 17:00 Urine pH 7.5 (5-7) 04/30/25 17:00 Ur Specific [place] 1.022 (1.005-1.030) 04/30/25 17:00 Urine Protein Negative (Negative) 04/30/25 17:00 Urine Glucose (UA) Negative (Normal) 04/30/25 17:00 Urine Ketones Negative (Negative) 04/30/25 17:00 Urine Blood Negative (Negative) 04/30/25 17:00 Urine Nitrate Negative (Negative) 04/30/25 17:00 Urine Bilirubin Negative (Negative) 04/30/25 17:00 Urine Urobilinogen 1.0 mg/dL (Negative) 04/30/25 17:00 Ur Leukocyte Esterase Trace (Negative) A 04/30/25 17:00 Urine RBC 0-2 /hpf (0-2) 04/30/25 17:00 Urine WBC 0-5 /hpf (0-5) 04/30/25 17:00 Ur Squamous Epith Cells 6-10 /hpf (0-5) 04/30/25 17:00 Amorphous Sediment Not Reportable 04/30/25 17:00 Urine Bacteria 2+ /hpf (NONE) H 04/30/25 17:00 Hyaline Casts 0-4 /lpf H 04/30/25 17:00 Salicylates < 0.3 mg/dL (3-10) L 04/30/25 17:40 Urine Opiates Screen Negative ng/mL (Negative) 04/30/25 17:00 Acetaminophen < 5.0 ug/mL (10-30) L 04/30/25 17:40 Ur Barbiturates Screen Negative ng/mL (Negative) 04/30/25 17:00 Ur Phencyclidine Scrn Negative ng/mL (Negative) 04/30/25 17:00 Ur Amphetamines Screen Negative ng/mL (Negative) 04/30/25 17:00 U Benzodiazepines Scrn Positive ng/mL (Negative) H 04/30/25 17:00 Urine Cocaine Screen Negative ng/mL (Negative) 04/30/25 17:00 U Marijuana (THC) Screen Negative ng/mL (Negative) 04/30/25 17:00 Ethyl Alcohol < 10 mg/dL (0-10) 04/30/25 17:40 Influenza A (PCR) Negative (Negative) 04/30/25 20:34 Influenza Type B (PCR) Negative (Negative) 04/30/25 20:34 RSV (PCR) Negative (Negative) 04/30/25 20:34 SARS-CoV-2 (PCR) Negative (Negative) 04/30/25 20:34 No radiology studies performed this visit Discharge Plan Discharge Condition: Stable Prescriptions: No Action azelastine 137 mcg (0.1 %) spray,non-aerosol 2 spray intranasal BID Qty: 30 5RF prazosin 2 mg capsule 2 mg PO BEDTIME 30 Days Qty: 30 1RF sertraline 100 mg Tablet 200 mg PO DAILY 30 Days Qty: 60 1RF aripiprazole 10 mg Tablet 10 mg PO DAILY 30 Days Qty: 30 1RF Referrals: Brennan Velazquez, INSTRUMENT TESTER-C [Primary Care Provider, Family Practice] Print Language: Greek Coding Level of Care Code ED Design Lead for Carlyn Grullon
[2025-04-30 17:16] LABS: HCG Qualitative Urine. Negative (Negative)
[2025-04-30 17:23] LABS: Bilirubin Urine Negative (Negative); Blood Urine Negative (Negative); Glucose Urine UA Negative (Normal); Ketones Urine Negative (Negative); Leukocyte Esterase Urine Trace (Negative); Nitrate Urine Negative (Negative); Protein Urine Negative (Negative); Specific Gravity, Urine 1.022 (1.005-1.030); Urine Appearance Cloudy (CLEAR); Urine Color Yellow (Yellow); pH Urine 7.5 (5-7)
[2025-04-30 17:25] VITALS: PULSE 69; O2SAT 96
[2025-04-30 17:28] LABS: Add Urine Microscopic? YES; Bacteria Urine 2+ /hpf; Hyaline Casts Urine 0-4 /lpf; RBC Urine 0-2 /hpf (0-2); WBC Urine 0-5 /hpf (0-5)
[2025-04-30 17:30] LABS: Amphetamines Screen Urine Negative (Negative); Barbiturates Screen Urine Negative (Negative); Benzodiazepines Screen Urine Positive (Negative); Cocaine Screen Urine Negative (Negative); Opiate Screen Urine Negative (Negative); PCP Screen Urine Negative (Negative); THC Screen Urine Negative (Negative)
[2025-04-30 17:53] LABS: Basophils % 0.2 %; Eosinophils # 0.1 10^3/uL (0.0-0.8); Eosinophils % 1.1 %; Hematocrit 39.5 % (36-47); Lymphocytes # 2.4 10^3/uL (1.5-6.5); Lymphocytes % 28.5 %; Mean Corpuscular HGB Conc 32.9 g/dL (30-55); Mean Corpuscular Volume 84.9 fl (85-98); Monocytes # 0.9 10^3/uL (0.2-0.9); Monocytes % 10.8 %; Neutrophils # 4.88 10^3/uL (1.8-8.0); Nucleated Red Blood Cells % 0 %; Platelet Count 353 10^3/cmm (157-399); Red Blood Count 4.65 10^6/uL (3.85-5.65); Red Cell Distribution Width 13.2 % (12.1-15.1); White Blood Count 8.27 10^3/uL (4.5-13.0)
[2025-04-30 18:00] VITALS: PULSE 70; O2SAT 95
--- NOTE | 2025-04-30 18:07 | PC.NURSE ---
pt changed into green scrubs, pt belongings placed into bag and security did inventory. Pt belongings placed into locker, sitter on board.
--- NOTE | 2025-04-30 18:11 | PC.NURSE ---
pt's caregivers at [facility] called poison control at time of ingestion. Pt's VS are being monitored. pt is currently resting in bed with no symptoms at this time other than pt being SI with superficial lacerations to wrist, hands, and distal arms.
--- NOTE | 2025-04-30 18:12 | PC.NURSE ---
[place] manager car called for update on pt if pt is being admitted or transferred out, no update at this time as workup is continued, name to callback with update is Carla Joya and the number is [phone]. If pt is admitted or transferred, pt's caregiver in room may be sent home at that time.
--- NOTE | 2025-04-30 18:14 | PC.NURSE ---
pt has been previously seen at [place] in [facility].
[2025-04-30 18:17] LABS: Alanine Aminotransferase 71 U/L (0-33); Albumin Level 4.1 g/dL (3.5-5.2); Alkaline Phosphatase 82 U/L (35-105); Anion Gap 18.3 (5-19); Aspartate Amino Transferase 56 U/L (0-32); Blood Urea Nitrogen 9 mg/dL (6-20); Calcium 8.9 mg/dL (8.5-10.5); Carbon Dioxide 22 mmol/L (22-29); Chloride 104 mmol/L (98-107); Globulin 3.2 g/dL (1.3-4.6); Glomerular Filtration Rate 158.9 mL/min (90-130); Glucose 80 mg/dL (65-115); Osmolality Calculated 288 mOsm/kg (285-295); Potassium 4.3 mmol/L (3.5-5.1); Sodium 140 mmol/L (136-145); Thyroid Stimulating Hormone 1.52 uIU/mL (0.27-4.20); Total Bilirubin 0.2 mg/dL (0.15-1.2); Total Protein 7.3 g/dL (6.6-8.7)
[2025-04-30 18:18] LABS: Acetaminophen < 5.0 ug/mL (10-30); Alcohol Level < 10 mg/dL (0-10); Salicylate < 0.3 mg/dL (3-10)
--- NOTE | 2025-04-30 19:38 | PC.NURSE ---
pt requesting food, this nurse gave pt a sandwich, no plastic wrapper. Dr. Henderson okayed.
[2025-04-30 20:00] VITALS: PULSE 96; O2SAT 96
--- NOTE | 2025-04-30 20:36 | ECG_ITS ---
[facility]25[facility]30 Pat Name: Alphonse Marinelli Department: Room: Gender: Female Knitting Inspector: : 2005 Requested By: Иван Henderson Order Number: [id number] Kyung MD: Imelda Ellison M.D. Measurements Intervals [place] Rate: 101 P: 53 DE: 142 QRS: 73 QRSD: 85 T: 19 QT: 349 QTc: 452 Interpretive Statements SINUS TACHYCARDIA ABNORMAL RHYTHM ECG Compared to ECG 04/12/2025 21:45:07 Sinus rhythm no longer present Electronically Signed On 04-30-2025 21:00:14 CDT by Imelda Ellison M.D. [email or web address]
[2025-04-30 21:22] LABS: Influenza A NEGATIVE (Negative); Influenza B NEGATIVE (Negative); Respiratory Syncytial Virus Ce NEGATIVE (Negative); SARS-CoV-2 PCR NEGATIVE (Negative)
--- NOTE | 2025-05-01 08:52 | PC.NURSE ---
this nurse assumed pt care from RICHARD Clark at 0700.
--- NOTE | 2025-05-01 09:46 | XRR_ITS ---
PROCEDURE INFORMATION: Exam: XR Chest Exam date and time: 05/01/2025 10:10 AM Age: 19 years old Clinical indication: Cough and dyspnea; Additional info: Dyspnea/cough TECHNIQUE: Imaging protocol: Radiologic exam of the chest. Views: 1 view. Total images: 2 COMPARISON: CR XR chest 2V* [id number] 04/10/2023 11:54 AM FINDINGS: Lungs: Unremarkable. No consolidation. Pleural spaces: Unremarkable. No pleural effusion. No pneumothorax. Heart/Mediastinum: Unremarkable. No cardiomegaly. Bones/joints: Unremarkable. XR/XR chest 1V portable [id number] IMPRESSION: No acute findings.
--- NOTE | 2025-05-01 10:16 | PC.PHAR ---
Pt is from [facility]
[2025-05-01 10:52] LABS: Alanine Aminotransferase 70 U/L (0-33); Albumin Level 3.8 g/dL (3.5-5.2); Alkaline Phosphatase 79 U/L (35-105); Anion Gap 16.2 (5-19); Aspartate Amino Transferase 47 U/L (0-32); Blood Urea Nitrogen 8 mg/dL (6-20); Calcium 9.1 mg/dL (8.5-10.5); Carbon Dioxide 22 mmol/L (22-29); Chloride 104 mmol/L (98-107); Globulin 3.1 g/dL (1.3-4.6); Glomerular Filtration Rate 158.9 mL/min (90-130); Glucose 107 mg/dL (65-115); Osmolality Calculated 285 mOsm/kg (285-295); Potassium 4.2 mmol/L (3.5-5.1); Sodium 138 mmol/L (136-145); Total Bilirubin 0.2 mg/dL (0.15-1.2); Total Protein 6.9 g/dL (6.6-8.7)
[2025-05-01] MEDS: LORazepam 2 mg Tablet PO (11:08)
[2025-05-01 11:33] VITALS: BP 123/81; PULSE 88; RESP 16; O2SAT 98
== END 2025-05-01 13:19 ==
PROVIDERS: Emergency Medicine; Emergency Provider Family Medicine; PCP Nurse Practitioner
DX: R45.851 Suicidal ideations (principal); Z11.52 Encounter for screening for COVID-19; Z87.891 Personal history of nicotine dependence
CPT/HCPCS: 36415; 71045; 80053; 80306; 80307; 81001; 81025; 84443; 85025; 87637; 93005; 99285; J9999

== ENCOUNTER 2025-05-19 19:04 | Inpatient (IN) | payer MEDICAID, SELFPAY ==
--- OUTSIDE RECORDS SUMMARY | 2025-05-19 19:08 | XMS_ITS | Encounter Summary ---
Author Organization [facility] Address [address] [place] [address] Care Team Providers Care Guest Service Host Name Role Phone Gisela Porras MD Primary Care Provider Encounter Details Date Type Department Care Team (Latest Contact Info) Description 03/18/2006 Outpatient Historical [facility] ac[address] 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
--- OUTSIDE RECORDS SUMMARY | 2025-05-19 19:08 | XMS_ITS | Encounter Summary ---
Author Organization [facility] Address [address] [place] [address] Care Team Providers Care Sous Chef Name Role Phone Gisela Porras MD Primary Care Provider [phone] Encounter Details Date Type Department Care Team (Latest Contact Info) Description 01/01/2006 Outpatient Historical [facility] 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
--- OUTSIDE RECORDS SUMMARY | 2025-05-19 19:08 | XMS_ITS | Encounter Summary ---
Author Organization [facility] Address [address] [place] [address] Care Team Providers Care Drafter Directional Survey Name Role Phone Gisela Porras MD Primary Care Provider Encounter Details Date Type Department Care Team (Latest Contact Info) Description 01/28/2006 Outpatient Historical [id number] [place] [phone] Frank Stanton MD NO ADDRESS ON FILE Infectious Colitis, Enteritis, and Gastroenteritis (Primary Dx); Edema Social History Tobacco Use Types Packs/Day Years Used Date Smoking Tobacco: Never Assessed Comments Unknown Sex and Gender Information Value Date Recorded Sex Assigned at Not on file Legal Sex Female 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
--- OUTSIDE RECORDS SUMMARY | 2025-05-19 19:08 | XMS_ITS | Encounter Summary ---
Author Organization [facility] Address [address] [facility] [place] [address] Care Team Providers Care Shredding Machine Tender Name Role Phone Gisela Porras MD Primary Care Provider Encounter Details Date Type Department Care Team (Latest Contact Info) Description 05/06/2006 Outpatient Historical [facility] [address] 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
--- OUTSIDE RECORDS SUMMARY | 2025-05-19 19:08 | XMS_ITS | Encounter Summary ---
Author Organization [facility] Address [address] [place] [address] Care Team Providers Care Publishing Editor Name Role Phone Gisela Porras MD Primary Care Provider Encounter Details Date Type Department Care Team (Latest Contact Info) Description 10/10/2006 Outpatient Historical [facility] [address] [place] [address] Fabi Briones MD NO ADDRESS ON FILE Infectious Colitis, Enteritis, and Gastroenteritis (Primary Dx) Social History Tobacco Use Types Packs/Day Years Used Date Smoking Tobacco: Never Assessed Comments Unknown Sex and Gender Information Value Date Recorded Sex Assigned at Not on file Legal Sex Female 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
--- OUTSIDE RECORDS SUMMARY | 2025-05-19 19:08 | XMS_ITS | Encounter Summary ---
Author Organization [facility] Address [address] [place] [address] Care Team Providers Care Laundry Tub Maker Name Role Phone Gisela Porras MD Primary Care Provider Encounter Details Date Type Department Care Team (Late st Contact Info) Description 10/10/2006 Outpatient Historical [facility] Cruzito Mccord, DO [address] [place], [place] [id number] Vomiting Alone (Primary Dx) Social History Tobacco Use Types Packs/Day Years Used Date Smoking Tobacco: Never Assessed Comments Unknown Sex and Gender Information Value Date Recorded Sex Assigned at Not on file Legal Sex Female 4:05 AM STOREROOM ATTENDANT Gender Identity Not on file Sexual Orientation Not on file documented as of this encounter Plan of Treatment Not on file documented as of this encounter Procedures Procedure Name Priority Date/Time Associated Diagnosis Comments URINALYSIS MICROSCOPY ONLY Routine 10/10/2006 2:23 PM STOREROOM ATTENDANT URINALYSIS W/REFLEX MICROSCOPIC Routine 10/10/2006 2:23 PM STOREROOM ATTENDANT documented in this encounter Results * (ABNORMAL) URINALYSIS MICROSCOPY ONLY (10/10/2006 2:23 PM STOREROOM ATTENDANT) WBC URINE None Seen 0 - 2 INTERFACE SYSTEM RBC UA None Seen 0 - 2 INTERFACE SYSTEM HYALINE CAST None Seen 0 - 2 INTERFA CE SYSTEM BACTERIA UA Small(A) None Seen INTERFAC E SYSTEM 10/10/2006 2:23 PM STOREROOM ATTENDANT us Cruzito Mujica DO URINE ORDERABLES Final Result Performing Organization Address City/[facility] Co de Phone Number INTERFACE SYSTEM Refer to clinic/hospital department * (ABNORMAL) URINALYSIS (10/10/2006 2:23 PM STOREROOM ATTENDANT) COLOR UA Yellow Straw INTERFACE SYSTEM Comment:CATH [...] Yes(A) No INTERFACE SYSTEM 10/10/2006 2:23 PM STOREROOM ATTENDANT us Cruzito Mujica DO URINE ORDERABLES Final Result Performing Organization Address City/[facility] Co de Phone Number INTERFACE SYSTEM Refer to clinic/hospital department documented in this encounter Visit Diagnoses Diagnosis Vomiting alone- Primary documented in this encounter Care Teams Laundry Tub Maker Relationship Specialty Start Date End Date Gisela Porras MD [address] [facility] [address] [place] [address] PCP - General Family Practice 11/04/16 documented as of this encounter
--- OUTSIDE RECORDS SUMMARY | 2025-05-19 19:08 | XMS_ITS | Encounter Summary ---
Author Organization [facility] Address [address] [place] [address] Care Team Providers Care Excelsior Machine Feeder Name Role Phone Gisela Porras MD Primary Care Provider Encounter Details Date Type Department Care Team (Latest Contact Info) Description 01/29/2006 Outpatient Historical [id number] [place] [phone] Monroe Rdz MD NO ADDRESS ON FILE Infectious Colitis, Enteritis, and Gastroenteritis (Primary Dx); Edema Social History Tobacco Use Types Packs/Day Years Used Date Smoking Tobacco: Never Assessed Comments Unknown Sex and Gender Information Value Date Recorded Sex Assigned at Not on file Legal Sex Female 4:05 AM PUBLIC RELATIONS INTERN Gender Identity Not on file Sexual Orientation Not on file documented as of this encounter Plan of Treatment Not on file documented as of this encounter Visit Diagnoses Diagnosis Infectious colitis, enteritis, and gastroenteritis- Primary Edema documented in this encounter Care Teams Excelsior Machine Feeder Relationship Specialty Start Date End Date Gisela Porras MD [address] [facility] [address] [place] [address] PCP - General Family Practice 11/04/16 documented as of this encounter
--- OUTSIDE RECORDS SUMMARY | 2025-05-19 19:08 | XMS_ITS | Encounter Summary ---
Author Organization [facility] Address [address] [place] [address] Care Team Providers Care Pool Technician Name Role Phone Gisela Porras MD Primary Care Provider Encounter Details Date Type Department Care Team (Latest Contact Info) Description 2005 Outpatient Historical [facility] [address] 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
--- OUTSIDE RECORDS SUMMARY | 2025-05-19 19:08 | XMS_ITS | Encounter Summary ---
Author Organization [facility] Address [address] [facility] [address] Care Team Providers Care Academic Affairs Coordinator Name Role Phone Gisela Porras MD Primary Care Provider [phone] Encounter Details Date Type Department Care Team (Latest Contact Info) Description 2005 Outpatient Historical [facility] acks [address] 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
--- OUTSIDE RECORDS SUMMARY | 2025-05-19 19:08 | XMS_ITS | Clinical Summary ---
Author Organization [facility] Address [address] [facility] [place] [address] Care Team Providers Care Table And Desk Finisher Name Role Phone Gisela Porras MD Primary Care Provider Allergies No known active allergies Medications medroxyPROGESTERo ne (DEPO-PROVERA) 150 mg/mL SyringeIndication s:Encounter for initial prescription of contraceptive pills Inject 1 mL (150 mg) by intramuscular injection every 90 days. 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
--- OUTSIDE RECORDS SUMMARY | 2025-05-19 19:08 | XMS_ITS | Encounter Summary ---
Author Organization [facility] Address [address] [facility] [place] [address] Care Team Providers Care Materials Coordinator Name Role Phone Gisela Porras MD Primary Care Provider Encounter Details Date Type Department Care Team (Latest Contact Info) Description [address] [facility] [address] 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
--- OUTSIDE RECORDS SUMMARY | 2025-05-19 19:08 | XMS_ITS | Encounter Summary ---
Author Organization [facility] Address [address] [place] [address] Care Team Providers Care Zig Zag Spring Machine Operator Name Role Phone Gisela Porras [...] on file Legal Sex Female 4:05 AM HRIS MANAGER Gender Identity Not on file Sexual Orientation Not on file documented as of this encounter Plan of Treatment Not on file documented as of this encounter Procedures Procedure Name Priority Date/Time Associated Diagnosis Comments METABOLIC SCREEN Routine 2005 12:15 AM HRIS MANAGER POC GLUCOSE Routine 2005 8:49 PM HRIS MANAGER POC GLUCOSE Routine 2005 3:41 PM HRIS MANAGER POC GLUCOSE Routine 2005 3:10 PM HRIS MANAGER DRUG SCREEN, MECONIUM Routine 2005 10:03 AM HRIS MANAGER documented in this encounter Results * METABOLIC SCREEN (2005 12:15 AM HRIS MANAGER) PKU Sent to Reference Lab INTERFACE SYSTEM 2005 12:1 5 AM HRIS MANAGER us Monroe Rdz MD CHEMISTRY ORDERABLES Final Res ult Performing Organization Address [facility] Co de Phone Number INTERFACE SYSTEM Refer to clinic/hospital department * POC GLUCOSE (2005 8:49 PM HRIS MANAGER) GLUCOSE POC 72 50 - 80 mg/dL INTERFACE SYSTEM 2005 8:49 PM HRIS MANAGER us Monroe Rdz MD POINT OF CARE TESTING Final Re sult Performing Organization Address [facility] de Phone Number INTERFACE SYSTEM Refer to clinic/hospital department * POC GLUCOSE (2005 3:41 PM HRIS MANAGER) GLUCOSE POC 62 50 - 80 mg/dL INTERFACE SYSTEM 2005 3:41 PM HRIS MANAGER us Jamir Hilton MD POINT OF CARE TESTING Analia l Result Performing Organization Address [facility] de Phone Number INTERFACE SYSTEM Refer to clinic/hospital department * (ABNORMAL) POC GLUCOSE (2005 3:10 PM HRIS MANAGER) GLUCOSE POC 48(L) 50 - 80 mg/dL INTERFACE SYSTEM 2005 3:10 PM HRIS MANAGER us Jamir Hilton MD POINT OF CARE TESTING Analia l Result Performing Organization Address [facility] de Phone Number INTERFACE SYSTEM Refer to clinic/hospital department * DRUG SCREEN, MECONIUM (2005 10:03 AM HRIS MANAGER) DRUG SCREEN, MECONIUM Sent to Reference Lab INTERFACE SYSTEM 2005 10:0 3 AM HRIS MANAGER us Jamir Hilton MD BODY FLUIDS AND STOOLS COM Final Result INTERFACE SYSTEM Refer to clinic/hospital department documented in this encounter Visit Diagnoses Diagnosis Single liveborn, born in hospital, delivered without mention of delivery- Primary documented in this encounter Care Teams Zig Zag Spring Machine Operator Relationship Specialty Start Date End Date Gisela Porras MD [address] [address] PCP - General Family Practice 11/04/16 documented as of this encounter
--- OUTSIDE RECORDS SUMMARY | 2025-05-19 19:08 | XMS_ITS | Encounter Summary ---
Author Organization [facility] Address [address] [facility] [place] [address] Care Team Providers Care Fine Arts Teacher Name Role Phone Gisela Porras MD Primary Care Provider Encounter Details Date Type Department Care Team (Latest Contact Info) Description 2005 Outpatient Historical [facility] [address] 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
--- OUTSIDE RECORDS SUMMARY | 2025-05-19 19:08 | XMS_ITS | Encounter Summary ---
Author Organization [facility] Address [address] [facility] [place] [address] Care Team Providers Care Sectional Belt Mold Assembler Name Role Phone Gisela Porras MD Primary Care Provider Encounter Details Date Type Department Care Team (Latest Contact Info) Description 11/24/2008 Inpatient Historical [facility] Outpatient Surgery [place] [address] [place] [address] Jamir Reyes, DDS [address] [place] [address] Unspecified Dental Caries (Primary Dx) Social History Tobacco Use Types Packs/Day Years Used Date Smoking Tobacco: Never Assessed Comments Unknown Sex and Gender Information Value Date Recorded Sex Assigned at Not on file Legal Sex Female 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
--- OUTSIDE RECORDS SUMMARY | 2025-05-19 19:08 | XMS_ITS | Encounter Summary ---
Author Organization [facility] Address [address] [place] [address] Care Team Providers Care Pellet Mill Operator Name Role Phone Gisela Porras MD Primary Care Provider Encounter Details Date Type Department Care Team (Latest Contact Info) Description 10/13/2006 Outpatient Historical [facility] Ophthalmology 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
--- OUTSIDE RECORDS SUMMARY | 2025-05-19 19:08 | XMS_ITS | Encounter Summary ---
Author Organization [facility] Address [address] [place] [address] Care Team Providers Care Javascript Software Engineer Name Role Phone Gisela Porras MD Primary Care Provider Encounter Details Date Type Department Care Team (Latest Contact Info) Description 08/08/2006 Outpatient Historical [facility] Monroe Rdz MD NO ADDRESS ON FILE Acute Upper Respiratory Infections of Unspecified Site (Primary Dx) Social History Tobacco Use Types Packs/Day Years Used Date Smoking Tobacco: Never Assessed Comments Unknown Sex and Gender Information Value Date Recorded Sex Assigned at Not on file Legal Sex Female 4: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
--- OUTSIDE RECORDS SUMMARY | 2025-05-19 19:08 | XMS_ITS | Encounter Summary ---
Author Organization [facility] Address [address] [place] [address] Care Team Providers Care Pest Control Supervisor Name Role Phone Gisela Porras MD Primary Care Provider [phone] Encounter Details Date Type Department Care Team (Late st Contact Info) Description 10/19/2007 Outpatient Historical [facility] Ophthalmology [address] [place] [address] Richmond Newsome MD [address] [place] [address] Social History Tobacco Use Types Packs/Day Years Used Date Smoking Tobacco: Never Assessed Comments Unknown Sex and Gender Information Value Date Recorded Sex Assigned at Not on file Legal Sex Female 4:05 AM ENERGY ADVISOR Gender Identity Not on file Sexual Orientation Not on file documented as of this encounter Plan of Treatment Not on file documented as of this encounter Visit Diagnoses Not on filedocumented in this encounter Care Teams Pest Control Supervisor Relationship Specialty Start Date End Date Gisela Porras MD [address] [facility] [address] [place] [phone] PCP - General Family Practice 11/04/16 documented as of this encounter
[2025-05-19 19:13] VITALS: BP 119/81; PULSE 88; RESP 16; TEMP 36.6; O2SAT 96; BMI 30.2
--- NOTE | 2025-05-19 19:38 | ECG_ITS ---
[facility] Date: 2025-05-19 Pat Name: Alphonse Marinelli Department: Room: 128 Gender: Female Dissolver Operator: : 2005 Requested By: Elias Gan Order Number: [id number] Reading MD: CELESTE HOUSE Measurements Intervals [place] Rate: 89 P: 42 DE: 120 QRS: 63 QRSD: 78 T: 16 QT: 361 QTc: 442 Interpretive Statements SINUS RHYTHM Compared to ECG 04/30/2025 20:36:05 Sinus tachycardia no longer present Electronically Signed On 05-23-2025 21:34:30 CDT by CELESTE HOUSE [email or web address]
--- NOTE | 2025-05-19 19:44 | W.ED.PSYCHS ---
HPI - Psych General: Chief Complaint: Psychiatric Symptoms Stated Complaint: SI Time Seen by Provider: 05/19/25 19:11 History of Present Illness: 19-year-old female who presents with suicidal ideation. She states that she took broken glass today and started cutting herself. She has multiple cuts on all 4 extremities. All superficial. States that she did have thoughts of killing herself. Related Data Home Medications ?Medication ?Instructions ?Recorded ?Confirmed melatonin 5 mg tablet 5 mg PO BEDTIME 05/01/25 05/01/25 norgestimate-ethinyl estradiol 1 tab PO DAILY 05/01/25 05/01/25 0.18mg/0.215mg/0.25mg-0.035mg(28)tablet (Tri-Sprintec (28)) Previous Rx's ?Medication ?Instructions ?Recorded azelastine 137 mcg (0.1 %) nasal 2 spray intranasal BID #30 mL 02/02/25 spray aripiprazole 10 mg tablet 10 mg PO DAILY 30 days #30 tabs 04/18/25 prazosin 2 mg capsule 2 mg PO BEDTIME 30 days #30 caps 04/18/25 sertraline 100 mg tablet 200 mg (2 x 100 mg) PO DAILY 30 04/18/25 days #60 tabs Allergies Allergy/AdvReac Type Severity Reaction Status Date / Time No Known Allergies Allergy Verified 03/08/25 11:38 [facility] ED PFS: Medical History (Updated 05/19/25 @ 22:43 by Cruzito Ford MD) Oppositional defiant disorder Generalized anxiety disorder Pneumonia Cerumen impaction Oral contraceptive pill surveillance Sleep disorder Environmental and seasonal allergies Surgical History No history of previous surgery Family History Other Adopted Social History Smoking and tobacco/nicotine status: former use of tobacco/nicotine Second hand smoke exposure: No Alcohol intake: never Substance/Drug Use: never Adopted: Yes Caregiver/support person: Yes Lives independently: No Household members: caregiver Housing: House Marital status: Single Number of children: 0 Highest education level completed: 12th Grade, No Diploma service: No Current occupational status: disabled Pets and animals: No Do you think of yourself as: Straight/Heterosexual Current gender identity: Female Physical Exam Const: COMMON NORMALS: no acute distress, average body habitus, patient oriented x3, no limitations, healthy appearing, alert and well nourished Neck/C-Spine: COMMON NORMALS: no JVD Resp: COMMON NORMALS: normal respiratory effort, No retractions, No use of accessory muscles, clear to auscultation bilaterally and percussion normal AUSCULTATION: clear to auscultation bilaterally PERCUSSION: percussion normal Cardio: COMMON NORMALS: no JVD, regular rate, regular rhythm, S1 normal heart sound present, S2 normal heart sound present, No gallops present (Cardio), No clicks present (Cardio), No murmurs present (Cardio), No rub (Cardio) and Peripheral pulses 2+ throughout RATE: regular rate RHYTHM: regular rhythm HEART SOUNDS: S1 normal heart sound present and S2 normal heart sound present PERIPHERAL PULSES: Peripheral pulses 2+ throughout GI: COMMON NORMALS: Normal to inspection, nondistended, normoactive bowel sounds present, Soft to palpation, non-tender, No hepatosplenomegaly present, no masses and no bruits PALPATION: Yes Soft to palpation and Yes No hepatosplenomegaly present Neuro: COMMON NORMALS: patient oriented x3 SENSORIUM/ORIENTATION: Yes alert Psych: OTHER: Admits to suicidal ideation with depression and anxiety. Skin: OTHER: Patient with numerous superficial scratches on all 4 extremities. Nothing that would require intervention. Course Vital Signs: Vital signs: Vital Signs Temperature 98 F 05/19/25 19:13 Pulse Rate 88 05/19/25 19:13 Respiratory Rate 16 05/19/25 19:13 Blood Pressure 119/81 05/19/25 19:13 Pulse Oximetry 96 05/19/25 19:13 Oxygen Delivery Me thod Room Air 05/19/25 19:13 [facility] - Psych Medical Decision Making Patient with suicidal ideation and self harming behavior, admitted to psych, medically cleared Lab Data 05/19/25 19:52 05/19/25 19:52 Laboratory Results WBC 8.83 10^3/uL (4.5-13.0) 05/19/25 19:52 RBC 4.42 10^6/uL (3.85-5.65) 05/19/25 19:52 Hgb 12.30 g/dL (12.4-14.8) L 05/19/25 19:52 Hct 38.3 % (36-47) 05/19/25 19:52 MCV 86.7 fl (85-98) 05/19/25 19:52 MCH 27.8 pg (27-33) 05/19/25 19:52 MCHC 32.1 g/dL (30-55) 05/19/25 19:52 RDW 13.2 % (12.1-15.1) 05/19/25 19:52 Plt Count 353 10^3/cmm (157-399) 05/19/25 19:52 MPV 9.2 fL (7.4-10.4) 05/19/25 19:52 Neut % (Auto) 61.5 % 05/19/25 19:52 Lymph % (Auto) 27.9 % 05/19/25 19:52 [place] % (Auto) 8.5 % 05/19/25 19:52 Eos % (Auto) 1.4 % 05/19/25 19:52 Baso % (Auto) 0.5 % 05/19/25 19:52 Neut # (Auto) 5.44 10^3/uL (1.8-8.0) 05/19/25 19:52 Lymph # (Auto) 2.5 10^3/uL (1.5-6.5) 05/19/25 19:52 [place] # (Auto) 0.8 10^3/uL (0.2-0.9) 05/19/25 19:52 Eos # (Auto) 0.1 10^3/uL (0.0-0.8) 05/19/25 19:52 Baso # (Auto) 0.0 10^3/uL (0.0-0.1) 05/19/25 19:52 Nucleated RBC % (auto) 0 % 05/19/25:52 Nucleated RBCs # 0.0 /100WBC 05/19/25 19:52 Sodium 139 mmol/L (136-145) 05/19/25 19:52 Potassium 3.6 mmol/L (3.5-5.1) 05/19/25 19:52 Chloride 102 mmol/L (98-107) 05/19/25 19:52 Carbon Dioxide 22 mmol/L (22-29) 05/19/25 19:52 Anion Gap 18.6 (5-19) 05/19/25 19:52 BUN 9 mg/dL (6-20) 05/19/25 19:52 Creatinine 0.6 mg/dL (0.5-0.9) 05/19/25 19:52 GFR Calculation 128.8 mL/min (90-130) 05/19/25 19:52 Glucose 81 mg/dL (65-115) 05/19/25 19:52 Calculated Osmolality 286 mOsm/kg (285-295) 05/19/25 19:52 Calcium 9.4 mg/dL (8.5-10.5) 05/19/25 19:52 Total Bilirubin 0.2 mg/dL (0.15-1.2) 05/19/25 19:52 AST 32 U/L (0-32) 05/19/25 19:52 ALT 61 U/L (0-33) H 05/19/25 19:52 Alkaline Phosphatase 85 U/L (35-105) 05/19/25 19:52 Total Protein 7.2 g/dL (6.6-8.7) 05/19/25 19:52 Albumin 4.0 g/dL (3.5-5.2) 05/19/25 19:52 Globulin 3.2 g/dL (1.3-4.6) 05/19/25 19:52 HCG, Qual Negative (Negative) 05/19/25 20:52 Urine Color Yellow (Yellow) 05/19/25 20:52 Urine Appearance Clear (CLEAR) 05/19/25 20:52 Urine pH 5.5 (5-7) 05/19/25 20:52 Ur Specific [place] 1.032 (1.005-1.030) H 05/19/25 20:52 Urine Protein Trace (Negative) A 05/19/25 20:52 Urine Glucose (UA) Negative (Normal) 05/19/25 20:52 Urine Ketones Trace (Negative) 05/19/25 20:52 Urine Blood Negative (Negative) 05/19/25 20:52 Urine Nitrate Negative (Negative) 05/19/25 20:52 Urine Bilirubin Negative (Negative) 05/19/25 20:52 Urine Urobilinogen 1.0 mg/dL (Negative) 05/19/25 20:52 Ur Leukocyte Esterase Trace (Negative) A 05/19/25 20:52 Urine RBC 6-10 /hpf (0-2) 05/19/25 20:52 Urine WBC 11-20 /hpf (0-5) H 05/19/25 20:52 Ur Squamous Epith Cells 21-50 /hpf (0-5) H 05/19/25 20:52 Amorphous Sediment Not Reportable 05/19/25 20:52 Urine Bacteria 2+ /hpf (NONE) H 05/19/25 20:52 Hyaline Casts 1.21 /lpf 05/19/25 20:52 Salicylates < 0.3 mg/dL (3-10) L 05/19/25 19:52 Urine Opiates Screen Negative ng/mL (Negative) 05/19/25 20:52 Acetaminophen < 5.0 ug/mL (10-30) L 05/19/25 19:52 Ur Barbiturates Screen Negative ng/mL (Negative) 05/19/25 20:52 Ur Phencyclidine Scrn Negative ng/mL (Negative) 05/19/25 20:52 Ur Amphetamines Screen Negative ng/mL (Negative) 05/19/25 20:52 U Benzodiazepines Scrn Negative ng/mL (Negative) 05/19/25 20:52 Urine Cocaine Screen Negative ng/mL (Negative) 05/19/25 20:52 U Marijuana (THC) Screen Negative ng/mL (Negative) 05/19/25 20:52 Ethyl Alcohol < 10 mg/dL (0-10) 05/19/25 19:52 No radiology studies performed this visit Discharge Plan Discharge Patient Disposition: Admitted As Inpatient Clinical Impression: Suicidal ideation Condition: Stable Coding Level of Care Code ED Lease Picker for Carlyn Grullon
[2025-05-19 20:04] LABS: Hematocrit 38.3 % (36-47); Hemoglobin 12.30 g/dL (12.4-14.8); Mean Corpuscular HGB Conc 32.1 g/dL (30-55); Mean Corpuscular Hemoglobin 27.8 pg (27-33); Mean Corpuscular Volume 86.7 fl (85-98); Nucleated Red Blood Cells % 0 %; Platelet Count 353 10^3/cmm (157-399); Red Blood Count 4.42 10^6/uL (3.85-5.65); White Blood Count 8.83 10^3/uL (4.5-13.0)
[2025-05-19 20:21] LABS: Alanine Aminotransferase 61 U/L (0-33); Albumin Level 4.0 g/dL (3.5-5.2); Alkaline Phosphatase 85 U/L (35-105); Anion Gap 18.6 (5-19); Aspartate Amino Transferase 32 U/L (0-32); Blood Urea Nitrogen 9 mg/dL (6-20); Calcium 9.4 mg/dL (8.5-10.5); Carbon Dioxide 22 mmol/L (22-29); Chloride 102 mmol/L (98-107); Creatinine Clr Calc Pharmacy 161.9864; Globulin 3.2 g/dL (1.3-4.6); Glucose 81 mg/dL (65-115); Osmolality Calculated 286 mOsm/kg (285-295); Potassium 3.6 mmol/L (3.5-5.1); Sodium 139 mmol/L (136-145); Total Protein 7.2 g/dL (6.6-8.7)
[2025-05-19 20:29] LABS: Acetaminophen < 5.0 ug/mL (10-30); Alcohol Level < 10 mg/dL (0-10); Salicylate < 0.3 mg/dL (3-10)
[2025-05-19 20:58] LABS: Glucose Urine UA Negative (Normal); Nitrate Urine Negative (Negative)
[2025-05-19 20:59] LABS: HCG Qualitative Urine. Negative (Negative)
[2025-05-19 21:03] LABS: Add Urine Microscopic? YES
[2025-05-19 21:14] LABS: Specific Gravity, Urine 1.032 (1.005-1.030)
[2025-05-19 21:31] LABS: PCP Screen Urine Negative (Negative)
[2025-05-19 23:23] VITALS: BP 110/72; PULSE 88; RESP 16; O2SAT 95
--- NOTE | 2025-05-20 02:36 | W.ED.PSYCHS ---
HPI - Psych General: Chief Complaint: Psychiatric Symptoms Stated Complaint: SI Time Seen by Provider: 05/19/25 19:11 Related Data Home Medications ?Medication ?Instructions ?Recorded ?Confirmed melatonin 5 mg tablet 5 mg PO BEDTIME 05/01/25 05/01/25 norgestimate-ethinyl estradiol 1 tab PO DAILY 05/01/25 05/01/25 0.18mg/0.215mg/0.25mg-0.035mg(28)tablet (Tri-Sprintec (28)) Previous Rx's ?Medication ?Instructions ?Recorded azelastine 137 mcg (0.1 %) nasal 2 spray intranasal BID #30 mL 02/02/25 spray aripiprazole 10 mg tablet 10 mg PO DAILY 30 days #30 tabs 04/18/25 prazosin 2 mg capsule 2 mg PO BEDTIME 30 days #30 caps 04/18/25 sertraline 100 mg tablet 200 mg (2 x 100 mg) PO DAILY 30 04/18/25 days #60 tabs Allergies Allergy/AdvReac Type Severity Reaction Status Date / Time No Known Allergies Allergy Verified 03/08/25 11:38 PFS ED PFSH: Medical History (Updated 05/19/25 @ 22:43 by Cruzito Ford MD) Oppositional defiant disorder Generalized anxiety disorder Pneumonia Cerumen impaction Oral contraceptive pill surveillance Sleep disorder Environmental and seasonal allergies Surgical History No history of previous surgery Family History Other Adopted Social History Smoking and tobacco/nicotine status: former use of tobacco/nicotine Second hand smoke exposure: No Alcohol intake: never Substance/Drug Use: never Adopted: Yes Caregiver/support person: Yes Lives independently: No Household members: caregiver Housing: House Marital status: Single Number of children: 0 Highest education level completed: 12th Grade, No Diploma service: No Current occupational status: disabled Pets and animals: No Do you think of yourself as: Straight/Heterosexual Current gender identity: Female Course Vital Signs: Vital signs: Vital Signs Temperature 98 F 05/19/25 19:13 Pulse Rate 82 05/20/25 03:51 Respiratory Rate 16 05/20/25 03:51 Blood Pressure 108/63 05/20/25 03:51 Pulse Oximetry 96 05/20/25 03:51 Oxygen Delivery Me thod Room Air 05/19/25 23:23 MDM - Psych Lab Data 05/19/25 19:52 05/19/25 19:52 Laboratory Results WBC 8.83 10^3/uL (4.5-13.0) 05/19/25 19:52 RBC 4.42 10^6/uL (3.85-5.65) 05/19/25 19:52 Hgb 12.30 g/dL (12.4-14.8) L 05/19/25 19:52 Hct 38.3 % (36-47) 05/19/25 19:52 MCV 86.7 fl (85-98) 05/19/25 19:52 MCH 27.8 pg (27-33) 05/19/25 19:52 MCHC 32.1 g/dL (30-55) 05/19/25 19:52 RDW 13.2 % (12.1-15.1) 05/19/25 19:52 Plt Count 353 10^3/cmm (157-399) 05/19/25 19:52 MPV 9.2 fL (7.4-10.4) 05/19/25 19:52 Neut % (Auto) 61.5 % 05/19/25 19:52 Lymph % (Auto) 27.9 % 05/19/25 19:52 [place] % (Auto) 8.5 % 05/19/25 19:52 Eos % (Auto) 1.4 % 05/19/25 19:52 Baso % (Auto) 0.5 % 05/19/25 19:52 Neut # (Auto) 5.44 10^3/uL (1.8-8.0) 05/19/25 19:52 Lymph # (Auto) 2.5 10^3/uL (1.5-6.5) 05/19/25 19:52 [place] # (Auto) 0.8 10^3/uL (0.2-0.9) 05/19/25 19:52 Eos # (Auto) 0.1 10^3/uL (0.0-0.8) 05/19/25 19:52 Baso # (Auto) 0.0 10^3/uL (0.0-0.1) 05/19/25 19:52 Nucleated RBC % (auto) 0 % 05/19/25 19:52 Nucleated RBCs # 0.0 /100WBC 05/19/25 19:52 Sodium 139 mmol/L (136-145) 05/19/25 19:52 Potassium 3.6 mmol/L (3.5-5.1) 05/19/25 19:52 Chloride 102 mmol/L (98-107) 05/19/25 19:52 Carbon Dioxide 22 mmol/L (22-29) 05/19/25 19:52 Anion Gap 18.6 (5-19) 05/19/25 19:52 BUN 9 mg/dL (6-20) 05/19/25 19:52 Creatinine 0.6 mg/dL (0.5-0.9) 05/19/25 19:52 GFR Calculation 128.8 mL/min (90-130) 05/19/25 19:52 Glucose 81 mg/dL (65-115) 05/19/25 19:52 Calculated Osmolality 286 mOsm/kg (285-295) 05/19/25 19:52 Calcium 9.4 mg/dL (8.5-10.5) 05/19/25 19:52 Total Bilirubin 0.2 mg/dL (0.15-1.2) 05/19/25 19:52 AST 32 U/L (0-32) 05/19/25 19:52 ALT 61 U/L (0-33) H 05/19/25 19:52 Alkaline Phosphatase 85 U/L (35-105) 05/19/25 19:52 Total Protein 7.2 g/dL (6.6-8.7) 05/19/25 19:52 Albumin 4.0 g/dL (3.5-5.2) 05/19/25 19:52 Globulin 3.2 g/dL (1.3-4.6) 05/19/25 19:52 HCG, Qual Negative (Negative) 05/19/25 20:52 Urine Color Yellow (Yellow) 05/19/25 20:52 Urine Appearance Clear (CLEAR) 05/19/25 20:52 Urine pH 5.5 (5-7) 05/19/25 20:52 Ur Specific [place] 1.032 (1.005-1.030) H 05/19/25 20:52 Urine Protein Trace (Negative) A 05/19/25 20:52 Urine Glucose (UA) Negative (Normal) 05/19/25 20:52 Urine Ketones Trace (Negative) 05/19/25 20:52 Urine Blood Negative (Negative) 05/19/25 20:52 Urine Nitrate Negative (Negative) 05/19/25 20:52 Urine Bilirubin Negative (Negative) 05/19/25 20:52 Urine Urobilinogen 1.0 mg/dL (Negative) 05/19/25 20:52 Ur Leukocyte Esterase Trace (Negative) A 05/19/25 20:52 Urine RBC 6-10 /hpf (0-2) 05/19/25 20:52 Urine WBC 11-20 /hpf (0-5) H 05/19/25 20:52 Ur Squamous Epith Cells 21-50 /hpf (0-5) H 05/19/25 20:52 Amorphous Sediment Not Reportable 05/19/25 20:52 Urine Bacteria 2+ /hpf (NONE) H 05/19/25 20:52 Hyaline Casts 1.21 /lpf 05/19/25 20:52 Salicylates < 0.3 mg/dL (3-10) L 05/19/25 19:52 Urine Opiates Screen Negative ng/mL (Negative) 05/19/25 20:52 Acetaminophen < 5.0 ug/mL (10-30) L 05/19/25 19:52 Ur Barbiturates Screen Negative ng/mL (Negative) 05/19/25 20:52 Ur Phencyclidine Scrn Negative ng/mL (Negative) 05/19/25 20:52 Ur Amphetamines Screen Negative ng/mL (Negative) 05/19/25 20:52 U Benzodiazepines Scrn Negative ng/mL (Negative) 05/19/25 20:52 Urine Cocaine Screen Negative ng/mL (Negative) 05/19/25 20:52 U Marijuana (THC) Screen Negative ng/mL (Negative) 05/19/25 20:52 Ethyl Alcohol < 10 mg/dL (0-10) 05/19/25 19:52 Discharge Plan Discharge Patient Disposition: Admitted As Inpatient Admit Provider: Elvia,Elias Clinical Impression: Suicidal ideation Condition: Stable Coding Level of Care Code ED Clean Out Driller Helper for Carlyn Grullon
[2025-05-20 03:39] VITALS: BP 110/77; PULSE 98; RESP 18; TEMP 36.3; O2SAT 96
[2025-05-20 03:51] VITALS: BP 108/63; PULSE 82; RESP 16; O2SAT 96
--- NOTE | 2025-05-20 04:42 | PC.ADMIT ---
[id number] Admission Note: The patient,Alphonse Marinelli,19 y/o, was given written information regarding hospital policies, unit procedures and contact persons. Patient's smoking status: former smoker. Vital Signs - 8 hr 05/19/25 23:23 05/20/25 03:39 05/20/25 03:42 Temperature 97.4 F L Pulse Rate 88 98 Respiratory Rate 16 18 Blood Pressure 110/72 110/77 Pulse Oximetry 95 96 Oxygen Delivery Method Room Air Room Air Room Air 05/20/25 03:51 Temperature Pulse Rate 82 Respiratory Rate 16 Blood Pressure 108/63 Pulse Oximetry 96 Oxygen Delivery Method 19 y/o female patient who is well known to this hospital presented to ED after self inflicted scratches to bue and ble. Patient states she started feeling down yesterday. Patient currently denies SI/HI/AVH. She recently discharged from [facility]. Per report from Josephine in ER patients mom wanted patient to be inpatient at [facility] to preserve continuity of care. The hope was to try to reform the behavior of the patient wanting admission to psychiatric. facilities. Peg casper a past psychiatric history of oppositional defiant disorder, generalized anxiety disorder. PMH includes diagnosis of pneumonia, cerumen impaction, oral contraceptive pill surveillance, sleep disorder, environmental and seasonal allergies.
[2025-05-20 06:00] VITALS: BP 110/77; PULSE 98; RESP 18; TEMP 36.3; O2SAT 96
[2025-05-20 14:00] VITALS: BP 109/65; PULSE 106; RESP 16; TEMP 36.8; O2SAT 95
--- NOTE | 2025-05-20 14:12 | PC.NURSE ---
No Phone privileges per her Guardian. Guardian is afraid that pt will call men's numbers that she has memorized from her past.
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
[2025-05-20] MEDS: saline nasal spray 44mL Btl 2 SPRAY NASAL (17:05)
[2025-05-20] MEDS: MELATONIN 3 MG TABLET PO (20:29)
[2025-05-20 21:54] VITALS: BP 118/76; PULSE 85; RESP 18; TEMP 36.6; O2SAT 97
[2025-05-21 06:00] VITALS: BP 96/60; PULSE 95; RESP 16; TEMP 36.7; O2SAT 97; BMI 37.8
--- NOTE | 2025-05-21 12:35 | P.NPUPN_ITS ---
Subjective NPU 2 Subjective: 19-year-old female with borderline perso nality disorder and borderline intellectual functioning admitted with suicidal ideation. The patient reported feeling tired. She had reported occasional nightmares. She had continued to report that her situation in [facility] was not getting better and she reports that they did not wish to have her return there. She had reported that she was not willing to see her mother and stated that talking to her mother on the phone seem to make things worse. She had isolated in her room. She had not been cutting on herself. She had complained of having some itching on the site of her areas where she was cutting herself. She had reported having some intermittent thoughts of cutting herself. Mental Status Exam 2 MSE Comments: This is an obese white female in hospital scrubs with limited grooming and fleetiing eye contact. No abnormal involuntary motor movements except for psychomotor retardation. She was minimally cooperative with exam in no acute distress. Speech was slightly decreased in rate and volume and childlike. Mood described as depressed and suicidal, Her affect was subdued. Thought process was linear and superficial. Thought content: Patient endorsed suicidal thoughts and denied homicidal ideation. There were no delusions reported or noted. She denied auditory or visual hallucinations. Attention and concentration appeared intact and memory was somewhat reliable but no more formally tested. She is alert and oriented to person, place and time. Insight is imparied and judgment is limited and impulse control is impaired. Intellectual ability commensurate with mild cognitive impairment. Vitals/I&O/Wt Last Vital Signs Temp 98.1 F 05/21/25 06:00 Pulse 95 05/21/25 06:00 Resp 16 05/21/25 06:00 BP 96/60 05/21/25 06:00 Pulse Ox 97 05/21/25 06:00 O2 Del Method Room Air 05/21/25 06:00 Weight last 48 hrs Weight 84.992 kg Weight 68.039 kg Data NPU 05/19/25 19:52 05/19/25 19:52 A&P Assessment and plan (1) Dysthymic disorder: (2) PTSD (post-traumatic stress disorder): (3) Oppositional defiant disorder: (4) Suicidal ideation: (5) Depression: (6) Intellectual disability: Plan This is a 19-year-old white female with a long history of mental health challenges with multiple inpatient hospitalizations and current outpatient services who presented with her third hospitalization in the last two months with reports of suicidal thinking and thoughts to self-harm. 1. Continue current medications as prescribed. Zoloft 200mg daily, abilify 10mg daily and prazosin 2mg at night. 2. Encourage individual, group and milieu therapy. 3. Place on 1-1 with inability to contract for safety and history of provocative behavior. 4. Obtain collateral information, will restart outpatient medications. 5. Will monitor and determine whether these behaviors represent a decompensation needing intervention or whether this is the reflection of the intermittent explosiveness or poor frustration tolerance is seen with intellectual disability. PDMP PDMP Reviewed: Not Reviewed Involuntary Hold Information 2 Hold Status: Legal Status: 96 Hour Hold Attestations NPU 2 Medical Necessity Statement*: Inpatient hospitalization is medically necessary and the clinically appropriate intervention at this time. We will monitor medications and make changes as indicated. The patient's likely length of stay is 4 to 6 days. Coding Level of Care Code Acute Code for [facility] Fw Diagnoses Dysthymic disorder F34.1 PTSD (post-traumatic stress disorder) F43.10 Oppositional defiant disorder F91.3 Suicidal ideation R45.851 Depression F32.A Intellectual disability F79
[2025-05-21 14:00] VITALS: BP 109/69; PULSE 102; RESP 16; TEMP 36.4; O2SAT 97
[2025-05-21] MEDS: MELATONIN 3 MG TABLET PO (20:09)
[2025-05-21 20:43] VITALS: BP 124/72; PULSE 100; RESP 18; TEMP 36.6; O2SAT 96
[2025-05-22 06:00] VITALS: BP 104/60; PULSE 96; RESP 16; TEMP 37.1; O2SAT 96
[2025-05-22 14:00] VITALS: BP 116/78; PULSE 101; RESP 17; TEMP 36.9; O2SAT 94
--- NOTE | 2025-05-22 15:31 | P.NPUPN_ITS ---
Subjective NPU 2 Subjective: 19-year-old female with borderline perso nality disorder and borderline intellectual functioning admitted with suicidal ideation. The patient did not engage in any self injury here. She had reported that she was feeling bored. She had stated that she was feeling better today. She reported having less frequent thoughts of harming herself. She had reported that she continued to not want to speak with her mother as she stated that it had triggered her to harm herself. She had isolated in her room. She denied any side effects from her medication. The patient had reported having few supports at [facility]. She had stated that she had problems with managing her anger. She had reported that she had been placed on a medication when she was last in the psychiatric facility in [place] that had been helpful for anxiety as needed. She was unable to recall the name of this medication. Mental Status Exam 2 MSE Comments: This is an obese white female in hospital scrubs with limited grooming and fleetiing eye contact. No abnormal involuntary motor movements except for psychomotor retardation. She was minimally cooperative with exam in no acute distress. Speech was slightly decreased in rate and volume and childlike. Mood described as depressed. Her affect was flat with odd inappropriate smile appreciated. Thought process was linear and superficial. Thought content: Patient endorsed suicidal thoughts and denied homicidal ideation. There were no delusions reported or noted. She denied auditory or visual hallucinations. Attention and concentration appeared intact and memory was somewhat reliable but no more formally tested. She is alert and oriented to person, place and time. Insight is impaired. Judgment is limited and impulse control is impaired. Intellectual ability commensurate with mild cognitive impairment. Vitals/I&O/Wt Last Vital Signs Temp 98.7 F 05/22/25 06:00 Pulse 96 05/22/25 06:00 Resp 16 05/22/25 06:00 BP 104/60 05/22/25 06:00 Pulse Ox 96 05/22/25 06:00 O2 Del Method Room Air 05/22/25 06:00 Weight last 48 hrs Weight 84.992 kg Data NPU 05/19/25 19:52 05/19/25 19:52 A&P Assessment and plan (1) Dysthymic disorder: (2) PTSD (post-traumatic stress disorder): (3) Oppositional defiant disorder: (4) Suicidal ideation: (5) Depression: (6) Intellectual disability: Plan This is a 19-year-old white female with a long history of mental health challenges with multiple inpatient hospitalizations and current outpatient services who presented with her third hospitalization in the last two months with reports of suicidal thinking and thoughts to self-harm. 1. Continue current medications as prescribed. Zoloft 200mg daily, abilify 10mg daily and prazosin 2mg at night. 2. Encourage individual, group and milieu therapy. 3. Place on 1-1 with inability to contract for safety and history of provocative behavior. 4. Contact [facility], patient appears better back on her medications. Uncertain of prn medication added at her last hospitalization. 5. Will monitor and determine whether these behaviors represent a decompensation needing intervention or whether this is the reflection of the intermittent explosiveness or poor frustration tolerance is seen with intellectual disability. PDMP PDMP Reviewed: Not Reviewed Involuntary Hold Information 2 Hold Status: Legal Status: 96 Hour Hold Attestations NPU 2 Medical Necessity Statement*: Inpatient hospitalization is medically necessary and the clinically appropriate intervention at this time. We will monitor medications and make changes as indicated. The patient's likely length of stay is 4 to 6 days. Coding Level of Care Code Acute Code for g Fwd Diagnoses Dysthymic disorder F34.1 PTSD (post-traumatic stress disorder) F43.10 Oppositional defiant disorder F91.3 Suicidal ideation R45.851 Depression F32.A Intellectual disability F79
[2025-05-22 20:20] VITALS: BP 88/56; PULSE 84; RESP 16; TEMP 36.7; O2SAT 95
[2025-05-22] MEDS: MELATONIN 3 MG TABLET PO (23:06)
--- NOTE | 2025-05-22 23:10 | PC.NURSE ---
HS MEDS PATIENT REFUSED HER HS MEDS EARLIER THIS NIGHT. BUT PATIENT CAME TO THE NURSES DESK AT 2303 AND AGREED TO TAKE HER HS MEDS AT THAT TIME.
[2025-05-23 06:00] VITALS: BP 122/67; PULSE 87; RESP 16; TEMP 36.4; O2SAT 96
--- NOTE | 2025-05-23 12:31 | P.NPUPN_ITS ---
Subjective NPU 2 Subjective: 19-year-old female with borderline perso nality disorder and borderline intellectual functioning admitted with suicidal ideation. The patient had reported that she was feeling better. She remained on one-to-one. She had reported that she wished to go back to [facility]. Patient was unable to discuss details that had led to her hospitalization here. She had described having problems with being oppositional and struggled with tolerating rules and redirection. She had acknowledged that she had made threats to her mother and would not be allowed back there. She reported no side effects from her medication. Mental Status Exam 2 MSE Comments: This is an obese white female in hospital scrubs with limited grooming and fleetiing eye contact. No abnormal involuntary motor movements except for psychomotor retardation. She was minimally cooperative with exam in no acute distress. Speech was slightly decreased in rate and volume and childlike. Mood described as better. Her affect was flat with odd inappropriate smile appreciated. Thought process was linear and superficial. Thought content: Patient endorsed suicidal thoughts and denied homicidal ideation. There were no delusions reported or noted. She denied auditory or visual hallucinations. Attention and concentration appeared intact and memory was somewhat reliable but no more formally tested. She is alert and oriented to person, place and time. Insight is impaired. Judgment is limited and impulse control is impaired. Intellectual ability commensurate with mild cognitive impairment. Vitals/I&O/Wt Last Vital Signs Temp 97.5 F L 05/23/25 06:00 Pulse 87 05/23/25 06:00 Resp 16 05/23/25 06:00 BP 122/67 05/23/25 06:00 Pulse Ox 96 05/23/25 06:00 O2 Del Method Room Air 05/23/25 06:00 05/22/25 05/23/25 05/23/25 22:59 06:59 14:59 Intake Total 0 / 0 Balance 0 / 0 Data NPU 05/19/25 19:52 05/19/25 19:52 A&P Assessment and plan 1. Dysthymic disorder: 2. PTSD (post-traumatic stress disorder): 3. Oppositional defiant disorder: 4. Suicidal ideation: 5. Depression: 6. Intellectual disability: Plan: This is a 19-year-old white female with a long history of mental health challenges with multiple inpatient hospitalizations and current outpatient services who presented with her third hospitalization in the last two months with reports of suicidal thinking and thoughts to self-harm. 1. Continue current medications as prescribed. Zoloft 200mg daily, abilify 10mg daily and prazosin 2mg at night. We will remove one-to-one immediately and monitor closely for self-injurious behavior. 2. Encourage individual, group and milieu therapy. 3. Place on 1-1 with inability to contract for safety and history of provocative behavior. 4. Mother has expressed concern about the patient returning to [facility] at this time with the patient having a roommate that she has apparently threatened before. 5. Will monitor and determine whether these behaviors represent a decompensation needing intervention or whether this is the reflection of the intermittent explosiveness or poor frustration tolerance is seen with intellectual disability. PDMP PDMP Reviewed: Not Reviewed Involuntary Hold Information 2 Hold Status: Legal Status: 96 Hour Hold Attestations NPU 2 Medical Necessity Statement*: Inpatient hospitalization is medically necessary and the clinically appropriate intervention at this time. We will monitor medications and make changes as indicated. The patient's likely length of stay is 4 to 6 days. Coding Level of Care Code Acute Code for g Fwd Diagnoses Dysthymic disorder F34.1 PTSD (post-traumatic stress disorder) F43.10 Oppositional defiant disorder F91.3 Suicidal ideation R45.851 Depression F32.A Intellectual disability F79
[2025-05-23 14:00] VITALS: BP 110/72; PULSE 105; RESP 16; TEMP 36.8; O2SAT 95
[2025-05-23 19:45] VITALS: BP 129/85; PULSE 109; RESP 18; TEMP 36.6; O2SAT 95
[2025-05-23] MEDS: MELATONIN 3 MG TABLET PO (20:04)
[2025-05-24 06:00] VITALS: BP 125/85; PULSE 65; RESP 16; O2SAT 96
[2025-05-24] MEDS: saline nasal spray 44mL Btl 2 SPRAY NASAL ×2 (09:03→18:36)
[2025-05-24 14:00] VITALS: BP 110/74; PULSE 74; RESP 16; TEMP 36.9; O2SAT 98
--- NOTE | 2025-05-24 16:06 | P.NPUPN_ITS ---
Subjective NPU 2 Subjective: Patient presented today reporting that she is doing okay. She continues to have inappropriate laughter and at times inappropriate affect as she talked about suicidal thoughts or different issues. She endorses wanting to return to her facility and we discussed this needing to determine what the situation is as they are apparently looking for an alternative living arrangement. We discussed the fact that we would discuss with her people the fact that although they may determine that her current residential setting is not a fit we need to identify whether there are criteria present for her to stay in the hospital in the interim which is generally not preferred. She denied any side effects of the medication. Mental Status Exam 2 MSE Comments: This is an obese white female in hospital scrubs with limited grooming and fleetiing eye contact. No abnormal involuntary motor movements except for psychomotor retardation. She was minimally cooperative with exam in no acute distress. Speech was slightly decreased in rate and volume and childlike. Mood described as better. Her affect was flat with odd inappropriate smile appreciated. Thought process was linear and superficial. Thought content: Patient endorsed suicidal thoughts and denied homicidal ideation. There were no delusions reported or noted. She denied auditory or visual hallucinations. Attention and concentration appeared intact and memory was somewhat reliable but no more formally tested. She is alert and oriented to person, place and time. Insight is impaired. Judgment is limited and impulse control is impaired. Intellectual ability commensurate with mild cognitive impairment. Vitals/I&O/Wt Last Vital Signs Temp 98.5 F 05/24/25 14:00 Pulse 74 05/24/25 14:00 Resp 16 05/24/25 14:00 BP 110/74 05/24/25 14:00 Pulse Ox 98 05/24/25 14:00 O2 Del Method Room Air 05/24/25 14:00 Data NPU 05/19/25 19:52 05/19/25 19:52 A&P Assessment and plan 1. Dysthymic disorder: 2. PTSD (post-traumatic stress disorder): 3. Oppositional defiant disorder: 4. Suicidal ideation: 5. Depression: 6. Intellectual disability: Plan: This is a 19-year-old white female with a long history of mental health challenges with multiple inpatient hospitalizations and current outpatient services who presented with her third hospitalization in the last two months with reports of suicidal thinking and thoughts to self-harm. 1. Continue current medications as prescribed. Zoloft 200mg daily, abilify 10mg daily and prazosin 2mg at night. We removed one-to-one and we will continue to monitor closely for self-injurious behavior. 2. Encourage individual, group and milieu therapy. 3. Was placed on 11-16 with inability to contract for safety and history of provocative behavior. Returned to every 15 minute checks for safety 4. Mother has expressed concern about the patient returning to [facility] at this time with the patient having a roommate that she has apparently threatened before. Will need to speak with family as her staying in the hospital indefinitely while they find an alternative place for her to live will not likely be an option. 5. Will monitor and determine whether these behaviors represent a decompensation needing intervention or whether this is the reflection of the intermittent explosiveness or poor frustration tolerance is seen with intellectual disability. PDMP PDMP Reviewed: Not Reviewed Involuntary Hold Information 2 Hold Status: Legal Status: 96 Hour Hold Attestations NPU 2 Medical Necessity Statement*: Inpatient hospitalization is medically necessary and the clinically appropriate intervention at this time. We will monitor medications and make changes as indicated. The patient's likely length of stay is 3-5 days. Coding Level of Care Code Acute Code for g Fwd Diagnoses Dysthymic disorder F34.1 PTSD (post-traumatic stress disorder) F43.10 Oppositional defiant disorder F91.3 Suicidal ideation R45.851 Depression F32.A Intellectual disability F79
[2025-05-24 19:42] VITALS: BP 95/57; PULSE 98; RESP 18; TEMP 36.6; O2SAT 97
[2025-05-24] MEDS: MELATONIN 3 MG TABLET PO (20:21)
[2025-05-25 06:00] VITALS: BP 90/51; PULSE 80; RESP 16; TEMP 36.5; O2SAT 96
[2025-05-25] MEDS: saline nasal spray 44mL Btl 2 SPRAY NASAL ×2 (08:41→17:26)
[2025-05-25 14:00] VITALS: BP 121/79; PULSE 104; RESP 16; TEMP 36.9; O2SAT 95
--- NOTE | 2025-05-25 19:20 | W.PM.NPUPNS ---
Subjective NPU Subjective: Patient presented today reporting things are unchanged. She seems to be confused as to why she cannot go back to her [facility]. We discussed the fact that she might be going back to her [facility] because we do not really have a clear indication for why she would have to be in the hospital until they have made a decision to make or find an alternative place for her to live. Otherwise she is tolerating her medications and denies any side effects. Mental Status Exam MSE Comments: This is an obese white female in hospital scrubs with limited grooming and fleetiing eye contact. No abnormal involuntary motor movements except for psychomotor retardation. She was minimally cooperative with exam in no acute distress. Speech was slightly decreased in rate and volume and childlike. Mood described as better. Her affect was flat with odd inappropriate smile appreciated. Thought process was linear and superficial. Thought content: Patient endorsed suicidal thoughts and denied homicidal ideation. There were no delusions reported or noted. She denied auditory or visual hallucinations. Attention and concentration appeared intact and memory was somewhat reliable but no more formally tested. She is alert and oriented to person, place and time. Insight is impaired. Judgment is limited and impulse control is impaired. Intellectual ability commensurate with mild cognitive impairment. Vitals/I&O/Wt Last Vital Signs Temp 98.4 F 05/25/25 14:00 Pulse 104 H 05/25/25 14:00 Resp 16 05/25/25 14:00 BP 121/79 05/25/25 14:00 Pulse Ox 95 05/25/25 14:00 O2 Del Method Room Air 05/25/25 14:00 Data NPU 05/19/25 19:52 05/19/25 19:52 A&P Assessment and plan 1. Dysthymic disorder: 2. PTSD (post-traumatic stress disorder): 3. Oppositional defiant disorder: 4. Suicidal ideation: 5. Depression: 6. Intellectual disability: Plan: This is a 19-year-old white female with a long history of mental health challenges with multiple inpatient hospitalizations and current outpatient services who presented with her third hospitalization in the last two months with reports of suicidal thinking and thoughts to self-harm. 1. Continue current medications as prescribed. Zoloft 200mg daily, abilify 10mg daily and prazosin 2mg at night. We removed one-to-one and we will continue to monitor closely for self-injurious behavior. 2. Encourage individual, group and milieu therapy. 3. Was placed on 1-1 with inability to contract for safety and history of provocative behavior. Returned to every 15 minute checks for safety 4. Mother has expressed concern about the patient returning to [facility] at this time with the patient having a roommate that she has apparently threatened before. Will need to speak with family as her staying in the hospital indefinitely while they find an alternative place for her to live will not likely be an option. 5. Will monitor and determine whether these behaviors represent a decompensation needing intervention or whether this is the reflection of the intermittent explosiveness or poor frustration tolerance is seen with intellectual disability. PDMP PDMP Reviewed: Not Reviewed Involuntary Hold Information Hold Status: Legal Status: 96 Hour Hold Attestations NPU Medical Necessity Statement*: Inpatient hospitalization is medically necessary and the clinically appropriate intervention at this time. We will monitor medications and make changes as indicated. The patient's likely length of stay is 3-5 days. Coding Level of Care Code Acute Code for [facility] Fwd Diagnoses Dysthymic disorder F34.1 PTSD (post-traumatic stress disorder) F43.10 Oppositional defiant disorder F91.3 Suicidal ideation R45.851 Depression F32.A Intellectual disability F79
[2025-05-25 19:31] VITALS: BP 92/50; PULSE 98; RESP 17; TEMP 36.7; O2SAT 97
[2025-05-25] MEDS: MELATONIN 3 MG TABLET PO (20:30)
[2025-05-26 06:00] VITALS: BP 85/56; PULSE 88; RESP 15; TEMP 36.7; O2SAT 95
[2025-05-26] MEDS: saline nasal spray 44mL Btl 2 SPRAY NASAL ×2 (07:48→16:58)
--- NOTE | 2025-05-26 13:11 | P.NPUPN_ITS ---
Subjective NPU 2 Subjective: Patient presented today reporting that she was fine. We continue to try to explain to her that it has not been determined that she will not return to her original residential setting but that they are trying to transition her somewhere else. We agreed that after the meeting on Thursday we would make a decision about whether she was going back to the facility or if the new facility could support that movement quickly. She denied any side effects of the medication. Mental Status Exam 2 MSE Comments: This is an obese white female in hospital scrubs with limited grooming and fleetiing eye contact. No abnormal involuntary motor movements except for psychomotor retardation. She was minimally cooperative with exam in no acute distress. Speech was slightly decreased in rate and volume and childlike. Mood described as better. Her affect was flat with odd inappropriate smile appreciated. Thought process was linear and superficial. Thought content: Patient endorsed suicidal thoughts and denied homicidal ideation. There were no delusions reported or noted. She denied auditory or visual hallucinations. Attention and concentration appeared intact and memory was somewhat reliable but no more formally tested. She is alert and oriented to person, place and time. Insight is impaired. Judgment is limited and impulse control is impaired. Intellectual ability commensurate with mild cognitive impairment. Vitals/I&O/Wt Last Vital Signs Temp 98.0 F 05/26/25 06:00 Pulse 88 05/26/25 06:00 Resp 15 05/26/25 06:00 BP 85/56 05/26/25 06:00 Pulse Ox 95 05/26/25 06:00 O2 Del Method Room Air 05/26/25 06:00 Data NPU 05/19/25 19:52 05/19/25 19:52 A&P Assessment and plan 1. Dysthymic disorder: 2. PTSD (post-traumatic stress disorder): 3. Oppositional defiant disorder: 4. Suicidal ideation: 5. Depression: 6. Intellectual disability: Plan: This is a 19-year-old white female with a long history of mental health challenges with multiple inpatient hospitalizations and current outpatient services who presented with her third hospitalization in the last two months with reports of suicidal thinking and thoughts to self-harm. 1. Continue current medications as prescribed. Zoloft 200mg daily, abilify 10mg daily and prazosin 2mg at night. We removed one-to-one and we will continue to monitor closely for self-injurious behavior. 2. Encourage individual, group and milieu therapy. 3. Was placed on 11-16 with inability to contract for safety and history of provocative behavior. Returned to every 15 minute checks for safety 4. Mother has expressed concern about the patient returning to [facility] at this time with the patient having a roommate that she has apparently threatened before. Will need to speak with family as her staying in the hospital indefinitely while they find an alternative place for her to live will not likely be an option. 5. Will monitor and determine whether these behaviors represent a decompensation needing intervention or whether this is the reflection of the intermittent explosiveness or poor frustration tolerance is seen with intellectual disability. 6. There is a meeting on Thursday with a new facility and we discussed allowing him to have that to understand what the next step is before deciding whether he discharge. PDMP PDMP Reviewed: Not Reviewed Involuntary Hold Information 2 Hold Status: Legal Status: Active Guardianship Attestations NPU 2 Medical Necessity Statement*: Inpatient hospitalization is medically necessary and the clinically appropriate intervention at this time. We will monitor medications and make changes as indicated. The patient's likely length of stay is 3-5 days. Coding Level of Care Code Acute Code for g Fwd Diagnoses Dysthymic disorder F34.1 PTSD (post-traumatic stress disorder) F43.10 Oppositional defiant disorder F91.3 Suicidal ideation R45.851 Depression F32.A Intellectual disability F79
[2025-05-26 14:00] VITALS: BP 112/71; PULSE 110; RESP 17; TEMP 36.8; O2SAT 95
[2025-05-26 19:39] VITALS: BP 116/78; PULSE 117; RESP 18; TEMP 36.4; O2SAT 94
[2025-05-26] MEDS: MELATONIN 3 MG TABLET PO (20:22)
[2025-05-27 06:00] VITALS: BP 91/52; PULSE 87; RESP 16; O2SAT 94
[2025-05-27] MEDS: saline nasal spray 44mL Btl 2 SPRAY NASAL (08:31)
--- NOTE | 2025-05-27 13:28 | P.NPUPN_ITS ---
Subjective NPU 2 Subjective: Patient presented today reporting that she is doing all right. She did endorse having an argument with her mother earlier which has made her more irritable. Otherwise she continues to ask questions about how her placement will or will not work and we continue to discuss us waiting till this meeting on Thursday to make a decision on where things are. We continue to discussed the fact that we would not be open to a long process of transition from her current facility to a new facility. She denied any side effects of the medication. Mental Status Exam 2 MSE Comments: This is an obese white female in hospital scrubs with limited grooming and fleetiing eye contact. No abnormal involuntary motor movements except for psychomotor retardation. She was minimally cooperative with exam in no acute distress. Speech was slightly decreased in rate and volume and childlike. Mood described as okay I was upset earlier because of a argument with my mother. Her affect was mostly euthymic with odd inappropriate smile appreciated. Thought process was linear and superficial. Thought content: Patient endorsed suicidal thoughts and denied homicidal ideation. There were no delusions reported or noted. She denied auditory or visual hallucinations. Attention and concentration appeared intact and memory was somewhat reliable but no more formally tested. She is alert and oriented to person, place and time. Insight is impaired. Judgment is limited and impulse control is impaired. Intellectual ability commensurate with mild cognitive impairment. Vitals/I&O/Wt Last Vital Signs Temp 97.6 F 05/26/25 19:39 Pulse 87 05/27/25 06:00 Resp 16 05/27/25 06:00 BP 91/52 05/27/25 06:00 Pulse Ox 94 05/27/25 06:00 O2 Del Method Room Air 05/27/25 06:00 05/26/25 05/27/25 05/27/25 22:59 06:59 14:59 Intake Total 0 / 0 Balance 0 / 0 Data NPU 05/19/25 19:52 05/19/25 19:52 A&P Assessment and plan 1. Dysthymic disorder: 2. PTSD (post-traumatic stress disorder): 3. Oppositional defiant disorder: 4. Suicidal ideation: 5. Depression: 6. Intellectual disability: Plan: This is a 19-year-old white female with a long history of mental health challenges with multiple inpatient hospitalizations and current outpatient services who presented with her third hospitalization in the last two months with reports of suicidal thinking and thoughts to self-harm. 1. Continue current medications as prescribed. Zoloft 200mg daily, abilify 10mg daily and prazosin 2mg at night. We removed one-to-one and we will continue to monitor closely for self-injurious behavior. 2. Encourage individual, group and milieu therapy. 3. Was placed on 11-16 with inability to contract for safety and history of provocative behavior. Returned to every 15 minute checks for safety 4. Mother has expressed concern about the patient returning to [facility] at this time with the patient having a roommate that she has apparently threatened before. Will need to speak with family as her staying in the hospital indefinitely while they find an alternative place for her to live will not likely be an option. 5. Will monitor and determine whether these behaviors represent a decompensation needing intervention or whether this is the reflection of the intermittent explosiveness or poor frustration tolerance is seen with intellectual disability. 6. There is a meeting on Thursday with a new facility and we discussed allowing him to have that to understand what the next step is before deciding whether he discharge. PDMP PDMP Reviewed: Not Reviewed Involuntary Hold Information 2 Hold Status: Legal Status: Active Guardianship Attestations NPU 2 Medical Necessity Statement*: Inpatient hospitalization is medically necessary and the clinically appropriate intervention at this time. We will monitor medications and make changes as indicated. The patient's likely length of stay is 3-5 days. Coding Level of Care Code Acute Code for Chg Fwd Diagnoses Dysthymic disorder F34.1 PTSD (post-traumatic stress disorder) F43.10 Oppositional defiant disorder F91.3 Suicidal ideation R45.851 Depression F32.A Intellectual disability F79
[2025-05-27 14:00] VITALS: BP 132/78; PULSE 107; RESP 18; TEMP 36.6; O2SAT 98
[2025-05-27 20:28] VITALS: BP 104/70; PULSE 100; RESP 16; TEMP 36.7; O2SAT 96
[2025-05-27] MEDS: MELATONIN 3 MG TABLET PO (20:37)
[2025-05-28 06:00] VITALS: BP 103/69; PULSE 95; RESP 19; TEMP 36.7; O2SAT 96; BMI 37.8
[2025-05-28] MEDS: saline nasal spray 44mL Btl 2 SPRAY NASAL (07:40)
--- NOTE | 2025-05-28 08:21 | P.NPUPN_ITS ---
Subjective NPU 2 Subjective: Patient presented today reporting that she is doing fine. We continue to discussed the fact that she has a meeting on Thursday that will identify whether a different facility has interest in taking her. We continued to discussed that once that conversation takes place and they give us some sense of where we would go from here we will make a decision about discharge and that there is a reasonable possibility that she would return to her current residence with a clear sense of a timeline of how much longer she will be staying there but that it was unlikely that she would remain here unless it was a very short window to the change. She denies any side effects or medications. Mental Status Exam 2 MSE Comments: This is an obese white female in hospital scrubs with limited grooming and fleetiing eye contact. No abnormal involuntary motor movements except for psychomotor retardation. She was cooperative with exam in no acute distress. Speech was slightly decreased in rate and volume and childlike. Mood described as pretty good. Her affect was mostly euthymic with odd inappropriate smile appreciated. Thought process was linear and superficial. Thought content: Patient endorsed suicidal thoughts and denied homicidal ideation. There were no delusions reported or noted. She denied auditory or visual hallucinations. Attention and concentration appeared intact and memory was somewhat reliable but no more formally tested. She is alert and oriented to person, place and time. Insight is impaired. Judgment is limited and impulse control is impaired. Intellectual ability commensurate with mild cognitive impairment. Vitals/I&O/Wt Last Vital Signs Temp 98.0 F 05/28/25 06:00 Pulse 95 05/28/25 06:00 Resp 19 H 05/28/25 06:00 BP 103/69 05/28/25 06:00 Pulse Ox 96 05/28/25 06:00 O2 Del Method Room Air 05/28/25 06:00 Weight last 48 hrs Weight 84.822 kg Data NPU 05/19/25 19:52 05/19/25 19:52 A&P Assessment and plan 1. Dysthymic disorder: 2. PTSD (post-traumatic stress disorder): 3. Oppositional defiant disorder: 4. Suicidal ideation: 5. Depression: 6. Intellectual disability: Plan: This is a 19-year-old white female with a long history of mental health challenges with multiple inpatient hospitalizations and current outpatient services who presented with her third hospitalization in the last two months with reports of suicidal thinking and thoughts to self-harm. 1. Continue current medications as prescribed. Zoloft 200mg daily, abilify 10mg daily and prazosin 2mg at night. We removed one-to-one and we will continue to monitor closely for self-injurious behavior. 2. Encourage individual, group and milieu therapy. 3. Was placed on 11-16 with inability to contract for safety and history of provocative behavior. Returned to every 15 minute checks for safety 4. Mother has expressed concern about the patient returning to [facility] at this time with the patient having a roommate that she has apparently threatened before. Will need to speak with family as her staying in the hospital indefinitely while they find an alternative place for her to live will not likely be an option. 5. Will monitor and determine whether these behaviors represent a decompensation needing intervention or whether this is the reflection of the intermittent explosiveness or poor frustration tolerance is seen with intellectual disability. 6. There is a meeting on Thursday with a new facility and we discussed allowing him to have that to understand what the next step is before deciding whether he discharge. PDMP PDMP Reviewed: Not Reviewed Involuntary Hold Information 2 Hold Status: Legal Status: Active Guardianship Attestations NPU 2 Medical Necessity Statement*: Inpatient hospitalization is medically necessary and the clinically appropriate intervention at this time. We will monitor medications and make changes as indicated. The patient's likely length of stay is 2-4 days. Coding Level of Care Code Acute Code for Chg Fwd Diagnoses Dysthymic disorder F34.1 PTSD (post-traumatic stress disorder) F43.10 Oppositional defiant disorder F91.3 Suicidal ideation R45.851 Depression F32.A Intellectual disability F79
[2025-05-28 14:00] VITALS: BP 116/85; PULSE 105; RESP 18; TEMP 36.3; O2SAT 97
[2025-05-28] MEDS: MELATONIN 3 MG TABLET PO (19:40)
[2025-05-28 19:41] VITALS: BP 110/70; PULSE 88; RESP 18; TEMP 36.8; O2SAT 98
[2025-05-29 06:00] VITALS: BP 101/65; PULSE 99; RESP 17; TEMP 36.8; O2SAT 96
[2025-05-29] MEDS: saline nasal spray 44mL Btl 2 SPRAY NASAL (08:38)
[2025-05-29 13:47] VITALS: BP 104/63; PULSE 95; RESP 16; TEMP 36.6; O2SAT 97
--- NOTE | 2025-05-29 18:29 | P.NPUPN_ITS ---
Subjective NPU 2 Subjective: Patient presented today reporting that she is doing well. She is looking forward to her interview tomorrow but is not sure what the time for the interview is. She endorsed hopefulness that she gets excepted there. We discussed not understanding the timeline and that after the interview we will identify what situation we have to determine whether her current residence is going to have to work with her until the change or if this will be a speedy transition. She denied any side effects to her medications. Mental Status Exam 2 MSE Comments: This is an obese white female in hospital scrubs with limited grooming and fleetiing eye contact. No abnormal involuntary motor movements except for psychomotor retardation. She was cooperative with exam in no acute distress. Speech was slightly decreased in rate and volume and childlike. Mood described as pretty good. Her affect was mostly euthymic with odd inappropriate smile appreciated. Thought process was linear and superficial. Thought content: Patient endorsed suicidal thoughts and denied homicidal ideation. There were no delusions reported or noted. She denied auditory or visual hallucinations. Attention and concentration appeared intact and memory was somewhat reliable but no more formally tested. She is alert and oriented to person, place and time. Insight is impaired. Judgment is limited and impulse control is impaired. Intellectual ability commensurate with mild cognitive impairment. Vitals/I&O/Wt Last Vital Signs Temp 98 F 05/29/25 13:47 Pulse 95 05/29/25 13:47 Resp 16 05/29/25 13:47 BP 104/63 05/29/25 13:47 Pulse Ox 97 05/29/25 13:47 O2 Del Method Room Air 05/29/25 13:47 Weight last 48 hrs Weight 84.822 kg Data NPU 05/19/25 19:52 05/19/25 19:52 A&P Assessment and plan 1. Dysthymic disorder: 2. PTSD (post-traumatic stress disorder): 3. Oppositional defiant disorder: 4. Suicidal ideation: 5. Depression: 6. Intellectual disability: Plan: This is a 19-year-old white female with a long history of mental health challenges with multiple inpatient hospitalizations and current outpatient services who presented with her third hospitalization in the last two months with reports of suicidal thinking and thoughts to self-harm. 1. Continue current medications as prescribed. Zoloft 200mg daily, abilify 10mg daily and prazosin 2mg at night. We removed one-to-one and we will continue to monitor closely for self-injurious behavior. 2. Encourage individual, group and milieu therapy. 3. Was placed on 11-16 with inability to contract for safety and history of provocative behavior. Returned to every 15 minute checks for safety 4. Mother has expressed concern about the patient returning to [facility] at this time with the patient having a roommate that she has apparently threatened before. Will need to speak with family as her staying in the hospital indefinitely while they find an alternative place for her to live will not likely be an option. 5. Will monitor and determine whether these behaviors represent a decompensation needing intervention or whether this is the reflection of the intermittent explosiveness or poor frustration tolerance is seen with intellectual disability. 6. There is a meeting on Thursday with a new facility and we discussed allowing him to have that to understand what the next step is before deciding whether he discharge. PDMP PDMP Reviewed: Not Reviewed Involuntary Hold Information 2 Hold Status: Legal Status: Active Guardianship Attestations NPU 2 Medical Necessity Statement*: Inpatient hospitalization is medically necessary and the clinically appropriate intervention at this time. We will monitor medications and make changes as indicated. The patient's likely length of stay is 1-3 days. Coding Level of Care Code Acute Code for g Fwd Diagnoses Dysthymic disorder F34.1 PTSD (post-traumatic stress disorder) F43.10 Oppositional defiant disorder F91.3 Suicidal ideation R45.851 Depression F32.A Intellectual disability F79
[2025-05-29 19:24] VITALS: BP 92/56; PULSE 83; RESP 18; TEMP 36.6; O2SAT 96
[2025-05-29] MEDS: MELATONIN 3 MG TABLET PO (19:59)
[2025-05-30 06:00] VITALS: BP 100/53; PULSE 74; RESP 16; O2SAT 95
[2025-05-30] MEDS: saline nasal spray 44mL Btl 2 SPRAY NASAL ×2 (07:45→17:47)
[2025-05-30 14:00] VITALS: BP 110/78; PULSE 92; RESP 16; TEMP 36.7; O2SAT 97
--- NOTE | 2025-05-30 18:49 | P.NPUPN_ITS ---
Subjective NPU 2 Subjective: Patient presented today reporting that things are going okay. She was a little frustrated that the meeting got pushed back but understands that she has no control over these issues. We agreed that we would just wait until tomorrow's meeting as we had plan to figure out what is next. She denied any problems with her medication or any problems on the unit. She denied any side effects of the medication and reported that she was feeling pretty good. Mental Status Exam 2 MSE Comments: This is an obese white female in hospital scrubs with limited grooming and fleetiing eye contact. No abnormal involuntary motor movements except for psychomotor retardation. She was cooperative with exam in no acute distress. Speech was slightly decreased in rate and volume and childlike. Mood described as pretty good. Her affect was mostly euthymic with odd inappropriate smile appreciated. Thought process was linear and superficial. Thought content: Patient endorsed suicidal thoughts and denied homicidal ideation. There were no delusions reported or noted. She denied auditory or visual hallucinations. Attention and concentration appeared intact and memory was somewhat reliable but no more formally tested. She is alert and oriented to person, place and time. Insight is impaired. Judgment is limited and impulse control is impaired. Intellectual ability commensurate with mild cognitive impairment. Vitals/I&O/Wt Last Vital Signs Temp 97.7 F 05/30/25 19:49 Pulse 96 05/30/25 19:49 Resp 18 05/30/25 19:49 BP 112/74 05/30/25 19:49 Pulse Ox 94 05/30/25 19:49 O2 Del Method Room Air 05/30/25 14:00 Data NPU 05/19/25 19:52 05/19/25 19:52 A&P Assessment and plan 1. Dysthymic disorder: 2. PTSD (post-traumatic stress disorder): 3. Oppositional defiant disorder: 4. Suicidal ideation: 5. Depression: 6. Intellectual disability: Plan: This is a 19-year-old white female with a long history of mental health challenges with multiple inpatient hospitalizations and current outpatient services who presented with her third hospitalization in the last two months with reports of suicidal thinking and thoughts to self-harm. 1. Continue current medications as prescribed. Zoloft 200mg daily, abilify 10mg daily and prazosin 2mg at night. We removed one-to-one and we will continue to monitor closely for self-injurious behavior. 2. Encourage individual, group and milieu therapy. 3. Was placed on 11-16 with inability to contract for safety and history of provocative behavior. Returned to every 15 minute checks for safety 4. Mother has expressed concern about the patient returning to [facility] at this time with the patient having a roommate that she has apparently threatened before. Will need to speak with family as her staying in the hospital indefinitely while they find an alternative place for her to live will not likely be an option. 5. Will monitor and determine whether these behaviors represent a decompensation needing intervention or whether this is the reflection of the intermittent explosiveness or poor frustration tolerance is seen with intellectual disability. 6. There is a meeting on Thursday with a new facility and we discussed allowing her to have that to understand what the next step is before deciding whether she discharge. Meeting was pushed back to tomorrow 05/31/2025. PDMP PDMP Reviewed: Not Reviewed Involuntary Hold Information 2 Hold Status: Legal Status: Active Guardianship Attestations NPU 2 Medical Necessity Statement*: Inpatient hospitalization is medically necessary and the clinically appropriate intervention at this time. We will monitor medications and make changes as indicated. The patient's likely length of stay is 1-3 days. Coding Level of Care Code Acute Code for [facility] Fwd Diagnoses Dysthymic disorder F34.1 PTSD (post-traumatic stress disorder) F43.10 Oppositional defiant disorder F91.3 Suicidal ideation R45.851 Depression F32.A Intellectual disability F79
[2025-05-30 19:49] VITALS: BP 112/74; PULSE 96; RESP 18; TEMP 36.5; O2SAT 94
[2025-05-30] MEDS: MELATONIN 3 MG TABLET PO (20:14)
[2025-05-31 06:00] VITALS: BP 90/60; PULSE 88; RESP 16; O2SAT 96
[2025-05-31 14:00] VITALS: BP 101/69; PULSE 100; RESP 16; TEMP 36.7; O2SAT 96
--- NOTE | 2025-05-31 18:22 | P.NPUPN_ITS ---
Subjective NPU 2 Subjective: Patient presented today reporting that things are going okay. She denied any issues with her interview reporting that it went well and she is optimistic that if she needs to switch circumstances that they will accept her. We discussed the fact that they advised that they would render a decision tomorrow and that we would then have insight into what discharge would look like. She denied any side effects to medications. Mental Status Exam 2 MSE Comments: This is an obese white female in hospital scrubs with limited grooming and fleetiing eye contact. No abnormal involuntary motor movements except for psychomotor retardation. She was cooperative with exam in no acute distress. Speech was slightly decreased in rate and volume and childlike. Mood described as pretty good. Her affect was mostly euthymic with odd inappropriate smile appreciated. Thought process was linear and superficial. Thought content: Patient endorsed suicidal thoughts and denied homicidal ideation. There were no delusions reported or noted. She denied auditory or visual hallucinations. Attention and concentration appeared intact and memory was somewhat reliable but no more formally tested. She is alert and oriented to person, place and time. Insight is impaired. Judgment is limited and impulse control is impaired. Intellectual ability commensurate with mild cognitive impairment. Vitals/I&O/Wt Last Vital Signs Temp 98.1 F 05/31/25 14:00 Pulse 100 05/31/25 14:00 Resp 16 05/31/25 14:00 BP 101/69 05/31/25 14:00 Pulse Ox 96 05/31/25 14:00 O2 Del Method Room Air 05/31/25 14:00 05/31/25 05/31/25 05/31/25 06:59 14:59 22:59 Intake Total 0 / 0 Balance 0 / 0 Data NPU 05/19/25 19:52 05/19/25 19:52 A&P Assessment and plan 1. Dysthymic disorder: 2. PTSD (post-traumatic stress disorder): 3. Oppositional defiant disorder: 4. Suicidal ideation: 5. Depression: 6. Intellectual disability: Plan: This is a 19-year-old white female with a long history of mental health challenges with multiple inpatient hospitalizations and current outpatient services who presented with her third hospitalization in the last two months with reports of suicidal thinking and thoughts to self-harm. 1. Continue current medications as prescribed. Zoloft 200mg daily, abilify 10mg daily and prazosin 2mg at night. We removed one-to-one and we will continue to monitor closely for self-injurious behavior. 2. Encourage individual, group and milieu therapy. 3. Was placed on 11-16 with inability to contract for safety and history of provocative behavior. Returned to every 15 minute checks for safety 4. Mother has expressed concern about the patient returning to [facility] at this time with the patient having a roommate that she has apparently threatened before. Will need to speak with family as her staying in the hospital indefinitely while they find an alternative place for her to live will not likely be an option. 5. Will monitor and determine whether these behaviors represent a decompensation needing intervention or whether this is the reflection of the intermittent explosiveness or poor frustration tolerance is seen with intellectual disability. 6. There is a meeting on Thursday with a new facility and we discussed allowing her to have that to understand what the next step is before deciding whether she discharge. Meeting was pushed back to tomorrow 05/31/2025. Meeting went well and we are awaiting timeline for discharge to their program if she is excepted which will be rendered tomorrow, 05/31/2025. PDMP PDMP Reviewed: Not Reviewed Involuntary Hold Information 2 Hold Status: Legal Status: Active Guardianship Attestations NPU 2 Medical Necessity Statement*: Inpatient hospitalization is medically necessary and the clinically appropriate intervention at this time. We will monitor medications and make changes as indicated. The patient's likely length of stay is 1-3 days. Coding Level of Care Code Acute Code for g Fwd Diagnoses Dysthymic disorder F34.1 PTSD (post-traumatic stress disorder) F43.10 Oppositional defiant disorder F91.3 Suicidal ideation R45.851 Depression F32.A Intellectual disability F79
[2025-05-31 20:18] VITALS: BP 90/60; PULSE 83; RESP 16; TEMP 36.6; O2SAT 98
[2025-05-31] MEDS: MELATONIN 3 MG TABLET PO (22:22)
[2025-06-01 06:00] VITALS: BP 104/66; PULSE 79; RESP 16; O2SAT 94
[2025-06-01] MEDS: saline nasal spray 44mL Btl 2 SPRAY NASAL ×2 (09:32→18:28)
[2025-06-01 14:00] VITALS: BP 116/72; PULSE 98; RESP 16; TEMP 36.3; O2SAT 96
--- NOTE | 2025-06-01 18:38 | P.NPUPN_ITS ---
Subjective NPU 2 Subjective: Patient presented today reporting that things are going okay. She reported that she felt good about the interview that she had with the new [facility] yesterday but they are now reporting that they are not going to take her. We discussed that meaning that she was likely going back to her previous facility. We reached out to them and discussed the fact that they were okay with her coming back but reported that they would need to get their staffing in order so we discussed the risks, benefits and alternatives of a plan for discharge tomorrow and she understood and agreed to proceed as is documented in this note. She denied any side effects to medications. Mental Status Exam 2 MSE Comments: This is an obese white female in hospital scrubs with limited grooming and fleetiing eye contact. No abnormal involuntary motor movements except for psychomotor retardation. She was cooperative with exam in no acute distress. Speech was slightly decreased in rate and volume and childlike. Mood described as pretty good. Her affect was mostly euthymic with odd inappropriate smile appreciated. Thought process was linear and superficial. Thought content: Patient endorsed suicidal thoughts and denied homicidal ideation. There were no delusions reported or noted. She denied auditory or visual hallucinations. Attention and concentration appeared intact and memory was somewhat reliable but no more formally tested. She is alert and oriented to person, place and time. Insight is impaired. Judgment is limited and impulse control is impaired. Intellectual ability commensurate with mild cognitive impairment. Vitals/I&O/Wt Last Vital Signs Temp 98.0 F 06/01/25 20:21 Pulse 91 06/01/25 20:21 Resp 16 06/01/25 20:21 BP 93/55 06/01/25 20:21 Pulse Ox 95 06/01/25 20:21 O2 Del Method Room Air 06/01/25 20:21 Data NPU 05/19/25 19:52 05/19/25 19:52 A&P Assessment and plan 1. Dysthymic disorder: 2. PTSD (post-traumatic stress disorder): 3. Oppositional defiant disorder: 4. Suicidal ideation: 5. Depression: 6. Intellectual disability: Plan: This is a 19-year-old white female with a long history of mental health challenges with multiple inpatient hospitalizations and current outpatient services who presented with her third hospitalization in the last two months with reports of suicidal thinking and thoughts to self-harm. 1. Continue current medications as prescribed. Zoloft 200mg daily, abilify 10mg daily and prazosin 2mg at night. We removed one-to-one and we will continue to monitor closely for self-injurious behavior. 2. Encourage individual, group and milieu therapy. 3. Was placed on 11-16 with inability to contract for safety and history of provocative behavior. Returned to every 15 minute checks for safety 4. Mother has expressed concern about the patient returning to [facility] house at this time with the patient having a roommate that she has apparently threatened before. Will need to speak with family as her staying in the hospital indefinitely while they find an alternative place for her to live will not likely be an option. 5. Will monitor and determine whether these behaviors represent a decompensation needing intervention or whether this is the reflection of the intermittent explosiveness or poor frustration tolerance is seen with intellectual disability. 6. There is a meeting on Thursday with a new facility and we discussed allowing her to have that to understand what the next step is before deciding whether she discharge. Meeting was pushed back to tomorrow 05/31/2025. Meeting went well and we are awaiting timeline for discharge to their program if she is excepted which will be rendered tomorrow, 05/31/2025. PDMP PDMP Reviewed: Not Reviewed Involuntary Hold Information 2 Hold Status: Legal Status: Active Guardianship Attestations NPU 2 Medical Necessity Statement*: Inpatient hospitalization is medically necessary and the clinically appropriate intervention at this time. We will monitor medications and make changes as indicated. The patient's likely length of stay is 1-3 days. Coding Level of Care Code Acute Code for Chg Fwd Diagnoses Dysthymic disorder F34.1 PTSD (post-traumatic stress disorder) F43.10 Oppositional defiant disorder F91.3 Suicidal ideation R45.851 Depression F32.A Intellectual disability F79
[2025-06-01 20:21] VITALS: BP 93/55; PULSE 91; RESP 16; TEMP 36.7; O2SAT 95
[2025-06-01] MEDS: MELATONIN 3 MG TABLET PO (22:18)
[2025-06-02 06:00] VITALS: BP 92/56; PULSE 90; RESP 16; TEMP 36.7; O2SAT 95
[2025-06-02] MEDS: saline nasal spray 44mL Btl 2 SPRAY NASAL (08:56)
--- NOTE | 2025-06-02 11:41 | P.NPUDS_ITS ---
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 (0.1 %) spray,non-aerosol 2 spray intranasal BID Qty: 30 5RF sertraline 100 mg Tablet 200 mg PO DAILY 30 Days Qty: 60 1RF prazosin 2 mg capsule 2 mg PO BEDTIME 30 Days Qty: 30 1RF aripiprazole 10 mg Tablet 10 mg PO DAILY 30 Days Qty: 30 1RF melatonin 5 mg tablet 5 mg PO BEDTIME 30 Days Qty: 30 1RF norgestimate-ethinyl estradiol [Tri-Sprintec (28)] 0.18/0.215/0.25 mg-0.035mg (28) tablet 1 tab PO DAILY Discharge Order = DC NOW: Discharge Order (Routine); Ordered 06/02/25 Ordered By: Louie Gutierrez Referrals: Alexandra Gayatn [Other] Brennan Velazquez, INFORMATION SYSTEMS SPECIALIST-C [Primary Care Provider, Family Practice] Discharge Diet: Regular Discharge Activity: Resume usual activity Patient Instructions: Opioid Safety, Pain Management, Patient Portal & Leanna Instructions Discharge Attestations NPU Time Spent in Discharge Care*: less than 30 min Specific Discharge Activities: Specific discharge activities: educating patient, discussing with case packer/social workers/dc planners, documenting/other paperwork and evaluating patient/reviewing data Coding Level of Care Code Acute Code for [facility] Fwd Diagnoses Dysthymic disorder F34.1 PTSD (post-traumatic stress disorder) F43.10 Oppositional defiant disorder F91.3 Suicidal ideation R45.851 Depression F32.A Intellectual disability F79
[2025-06-02 11:51] VITALS: BP 92/56; PULSE 90; RESP 16; TEMP 36.6; O2SAT 95
[2025-06-02 14:00] VITALS: BP 111/60; PULSE 102; RESP 16; TEMP 36.5; O2SAT 97
[2025-06-02 16:17] VITALS: BP 111/60; PULSE 102; RESP 16; TEMP 36.5; O2SAT 97
== END 2025-06-02 16:20 | disposition home or self-care (01) | DRG 881 ==
LOC: ER 22:43 → NP 05-20 02:45
PROVIDERS: Admitting Provider Psychiatry & Neurology Psychiatry; Emergency Provider Emergency Medicine; PCP Nurse Practitioner; Visit Provider Psychiatry & Neurology Psychiatry
DX: F32.A Depression, unspecified (principal); R45.851 Suicidal ideations; F34.1 Dysthymic disorder; F43.10 Post-traumatic stress disorder, unspecified; F91.3 Oppositional defiant disorder; F79 Unspecified intellectual disabilities; E66.9 Obesity, unspecified; Z68.37 Body mass index [BMI] 37.0-37.9, adult; G47.9 Sleep disorder, unspecified; J30.2 Other seasonal allergic rhinitis; Z91.51 Personal history of suicidal behavior; Z81.8 Family history of other mental and behavioral disorders; Z62.810 Personal history of physical and sexual abuse in childhood; F60.3 Borderline personality disorder
CPT/HCPCS: 36415; 80053; 80306; 80307; 81001; 81025; 85025; 93005; 97150; 97165; 99285; J9999; Q0162

== ENCOUNTER → 2025-06-08 14:26 | Outpatient (BNVA) | payer MEDICAID, SELFPAY | PROVIDERS: PCP Nurse Practitioner; Visit Provider Clinical Nurse Specialist Adult Health | DX: N30.00 Acute cystitis without hematuria (principal) | CPT/HCPCS: 81000; 87086 ==

== ENCOUNTER 2025-07-08 11:57 | Emergency (ER) | payer MEDICAID, SELFPAY ==
[2025-07-08 12:00] VITALS: BP 132/90; PULSE 101; RESP 18; TEMP 36.7; O2SAT 96
--- OUTSIDE RECORDS SUMMARY | 2025-07-08 12:03 | XMS_ITS | Encounter Summary ---
Author Organization [facility] Address [address] [facility] [place] [address] Care Team Providers Care Special Education Science Teacher Name Role Phone Gisela Porras MD Primary Care Provider Encounter Details Date Type Department Care Team (Latest Contact Info) Description 2005 Outpatient Historical [facility] acks [address] [place] [address] Monroe Rdz MD NO ADDRESS ON FILE Routine child health exam (Primary Dx); VACCINE FOR H FLU TYPE B; VACCINE FOR STREP PNEUMONIAE; VACCINE DIS COMBINATIONS NEC Social History Tobacco Use Types Packs/Day Years Used Date Smoking Tobacco: Never Assessed Comments Unknown Sex and Gender Information Value Date Recorded Sex Assigned at Not on file Legal Sex Female 4:05 AM WELDER RAILCAR MECHANIC Gender Identity Not on file Sexual Orientation [...] diseases documented in this encounter Care Teams Special Education Science Teacher Relationship Specialty Start Date End Date Gisela Porras MD [address] [facility] [address] [place] [address] PCP - General Family Practice 11/04/16 documented as of this encounter
--- OUTSIDE RECORDS SUMMARY | 2025-07-08 12:03 | XMS_ITS | Encounter Summary ---
Author Organization [facility] Address [address] [place] [address] Care Team Providers Care Hydraulic Auto Jack Mechanic Name Role Phone Gisela Proras MD Primary Care Provider Encounter Details Date Type Department Care Team (Latest Contact Info) Description 01/01/2006 Outpatient Historical [facility] Ophthalmology [address] [place] [address] Richmond Newsome MD [address] [place] [phone] CONGENITAL CATARACT NOS (Primary Dx) Social History Tobacco Use Types Packs/Day Years Used Date Smoking Tobacco: Never Assessed Comments Unknown Sex and Gender Information Value Date Recorded Sex Assigned at Not on file Legal Sex Female 4:05 AM RESEARCH KENNEL SUPERVISOR Gender Identity Not on file Sexual Orientation Not on file documented as of this encounter Plan of Treatment Not on file documented as of this encounter Visit Diagnoses Diagnosis Unspecified congenital cataract- Primary documented in this encounter Care Teams Hydraulic Auto Jack Mechanic Relationship Specialty Start Date End Date Gisela Porras MD [address] [facility] [address] [place] [address] PCP - General Family Practice 11/04/16 documented as of this encounter
--- OUTSIDE RECORDS SUMMARY | 2025-07-08 12:03 | XMS_ITS | Encounter Summary ---
Author Organization [facility] Address [address] [facility] [place] [address] Care Team Providers Care Agent Contract Clerk Name Role Phone Gisela Porras MD Primary Care Provider Encounter Details Date Type Department Care Team (Latest Contact Info) Description 2005 Outpatient Historical [facility] [address] [place] [phone] Monroe Rdz MD NO ADDRESS ON FILE Routine child health exam (Primary Dx) Social History Tobacco Use Types Packs/Day Years Used Date Smoking Tobacco: Never Assessed Comments Unknown Sex and Gender Information Value Date Recorded Sex Assigned at Not on file Legal Sex Female 4:05 AM FIRE CLAIMS ADJUSTER Gender Identity Not on file Sexual Orientation Not on file documented as of this encounter Plan of Treatment Not on file documented as of this encounter Visit Diagnoses Diagnosis Routine child health exam- Primary Routine infant or child health check documented in this encounter Care Teams Agent Contract Clerk Relationship Specialty Start Date End Date Gisela Porras MD [address] [facility] [address] [place] [address] PCP - General Family Practice 11/04/16 documented as of this encounter
--- OUTSIDE RECORDS SUMMARY | 2025-07-08 12:03 | XMS_ITS | Encounter Summary ---
Author Organization [facility] Address [address] [place] [address] Care Team Providers Care Security System Analyst Name Role Phone Gisela Porras MD Primary Care Provider Encounter Details Date Type Department Care Team (Latest Contact Info) Description 01/29/2006 Outpatient Historical [id number] [place] [phone] Monroe Rdz MD NO ADDRESS ON FILE Infectious Colitis, Enteritis, and Gastroenteritis (Primary Dx); Edema Social History Tobacco Use Types Packs/Day Years Used Date Smoking Tobacco: Never Assessed Comments Unknown Sex and Gender Information Value Date Recorded Sex Assigned at Not on file Legal Sex Female 4:05 AM WOODWORKING MACHINIST Gender Identity Not on file Sexual Orientation Not on file documented as of this encounter Plan of Treatment Not on file documented as of this encounter Visit Diagnoses Diagnosis Infectious colitis, enteritis, and gastroenteritis- Primary Edema documented in this encounter Care Teams Security System Analyst Relationship Specialty Start Date End Date Gisela Porras MD [address] [facility] [address] [place] [address] PCP - General Family Practice 11/04/16 documented as of this encounter
--- OUTSIDE RECORDS SUMMARY | 2025-07-08 12:03 | XMS_ITS | Encounter Summary ---
Author Organization [facility] Address [address] [facility] [place] [address] Care Team Providers Care Heating Fixture Tender Name Role Phone Gisela Porras MD Primary Care Provider Encounter Details Date Type Department Care Team (Latest Contact Info) Description 11/24/2008 Inpatient Historical [facility] Out[facility] Surgery [place] [address] [facility] [place] [address] Jamir Reyes, DDS [address] [place] [address] Unspecified Dental Caries (Primary Dx) Social History Tobacco Use Types Packs/Day Years Used Date Smoking Tobacco: Never Assessed Comments Unknown Sex and Gender Information Value Date Recorded Sex Assigned at Not on file Legal Sex Female 4:05 AM ACID BLEACHER Gender Identity Not on file Sexual Orientation Not on file documented as of this encounter Plan of Treatment Not on file documented as of this encounter Visit Diagnoses Diagnosis Unspecified dental caries- Primary documented in this encounter Care Teams Heating Fixture Tender Relationship Specialty Start Date End Date Gisela Porras MD [address] [facility] [address] [place] [address] PCP - General Family Practice 11/04/16 documented as of this encounter
--- OUTSIDE RECORDS SUMMARY | 2025-07-08 12:03 | XMS_ITS | Encounter Summary ---
Author Organization [facility] Address [address] [place] [address] Care Team Providers Care Winch Driver Name Role Phone Gisela Porras MD Primary Care Provider [phone] Encounter Details Date Type Department Care Team (Latest Contact Info) Description 08/08/2006 Outpatient Historical [facility] Monroe Rdz MD NO ADDRESS ON FILE Acute Upper Respiratory Infections of Unspecified Site (Primary Dx) Social History Tobacco Use Types Packs/Day Years Used Date Smoking Tobacco: Never Assessed Comments Unknown Sex and Gender Information Value Date Recorded Sex Assigned at Not on file Legal Sex Female 4:05 AM ACCOUNTS EXECUTIVE Gender Identity Not on file Sexual Orientation Not on file documented as of this encounter Plan of Treatment Not on file documented as of this encounter Visit Diagnoses Diagnosis Acute upper respiratory infections of unspecified site- Primary documented in this encounter Care Teams Winch Driver Relationship Specialty Start Date End Date Gisela Porras MD [address] [place] [address] PCP - General Family Practice 11/04/16 documented as of this encounter
--- OUTSIDE RECORDS SUMMARY | 2025-07-08 12:03 | XMS_ITS | Encounter Summary ---
Author Organization [facility] Address [address] [place] [address] Care Team Providers Care Weed Eradicator Name Role Phone Gisela Porras MD Primary Care Provider Encounter Details Date Type Department Care Team (Latest Contact Info) Description 01/28/2006 Outpatient Historical [address] [place] [phone] Frank Stanton MD NO ADDRESS ON FILE Infectious Colitis, Enteritis, and Gastroenteritis (Primary Dx); Edema Social History Tobacco Use Types Packs/Day Years Used Date Smoking Tobacco: Never Assessed Comments Unknown Sex and Gender Information Value Date Recorded Sex Assigned at Not on file Legal Sex Female 4:05 AM PLACEMENT MANAGER Gender Identity Not on file Sexual Orientation Not on file documented as of this encounter Plan of Treatment Not on file documented as of this encounter Visit Diagnoses Diagnosis Infectious colitis, enteritis, and gastroenteritis- Primary Edema documented in this encounter Care Teams Weed Eradicator Relationship Specialty Start Date End Date Gisela Porras MD [address] [facility] [address] [place] [address] PCP - General Family Practice 11/04/16 documented as of this encounter
--- OUTSIDE RECORDS SUMMARY | 2025-07-08 12:03 | XMS_ITS | Encounter Summary ---
Author Organization [facility] Address [address] [place] [address] Care Team Providers Care Home Appliance Washing Machine Mechanic Name Role Phone Gisela Porras MD Primary Care Provider Encounter Details Date Type Department Care Team (Late st Contact Info) Description 10/19/2007 Outpatient Historical [facility] Ophthalmology [address] [place] [address] Richmond Newsome MD [address] [place] [address] Social History Tobacco Use Types Packs/Day Years Used Date Smoking Tobacco: Never Assessed Comments Unknown Sex and Gender Information Value Date Recorded Sex Assigned at Not on file Legal Sex Female 4:05 AM RELISH MAKER Gender Identity Not on file Sexual Orientation Not on file documented as of this encounter Plan of Treatment Not on file documented as of this encounter Visit Diagnoses Not on filedocumented in this encounter Care Teams Home Appliance Washing Machine Mechanic Relationship Specialty Start Date End Date Gisela Porras MD [address] [facility] 60 [place] [phone] PCP - General Family Practice 11/04/16 documented as of this encounter
--- OUTSIDE RECORDS SUMMARY | 2025-07-08 12:03 | XMS_ITS | Clinical Summary ---
Author Organization [facility] Address [address] [facility] [place] [address] Care Team Providers Care Metal Loader Name Role Phone Gisela Porras MD Primary Care Provider Allergies No known active allergies Medications medroxyPROGESTERo ne (DEPO-PROVERA) 150 mg/mL SyringeIndication s:Encounter for initial prescription of contraceptive pills Inject 1 mL (150 mg) by intramuscular injection every 90 days. 1 mL 3 02/10/20 19 Active fluticasone propionate (FLONASE) 50 mcg/spray [place], Suspension nasal inhaler Administer 2 Sprays in [...] on file Legal Sex Female 4:05 AM RAIL EXPRESS CLERK Gender Identity Not on file [...] (#1) 2025 Insurance [place]ID [place] Care Teams Metal Loader Relationship Specialty Start Date End Date Gisela Porras MD [address] [address] PCP - General Family Practice 11/04/16
--- OUTSIDE RECORDS SUMMARY | 2025-07-08 12:03 | XMS_ITS | Encounter Summary ---
Author Organization [facility] Address [address] [facility] [place] [address] Care Team Providers Care Wheel Adjuster Name Role Phone Gisela Porras MD Primary Care Provider Encounter Details Date Type Department Care Team (Latest Contact Info) Description 05/06/2006 Outpatient Historical [facility] [address] [place] [address] Monroe Rdz MD NO ADDRESS ON FILE Routine Child Health Exam (Primary Dx); Vaccin Strep Pneumoniae; Vac-Dis Combinations NEC Social History Tobacco Use Types Packs/Day Years Used Date Smoking Tobacco: Never Assessed Comments Unknown Sex and Gender Information Value Date Recorded Sex Assigned at Not on file Legal Sex Female 4:05 AM STRUCTURAL MILL SUPERVISOR Gender Identity Not on file Sexual [...] diseases documented in this encounter Care Teams Wheel Adjuster Relationship Specialty Start Date End Date Gisela Porras MD [address] [facility] [address] [place] [phone] PCP - General Family Practice 11/04/16 documented as of this encounter
--- OUTSIDE RECORDS SUMMARY | 2025-07-08 12:03 | XMS_ITS | Encounter Summary ---
Author Organization [facility] Address [address] [place] [address] Care Team Providers Care Executive Admin Name Role Phone Gisela Porras MD Primary Care Provider Encounter Details Date Type Department Care Team (Latest Contact Info) Description 10/10/2006 Outpatient Historical [facility] [address] [place] [address] Fabi Briones MD NO ADDRESS ON FILE Infectious Colitis, Enteritis, and Gastroenteritis (Primary Dx) Social History Tobacco Use Types Packs/Day Years Used Date Smoking Tobacco: Never Assessed Comments Unknown Sex and Gender Information Value Date Recorded Sex Assigned at Not on file Legal Sex Female 4:05 AM LIGHT RAIL TRANSIT OPERATOR Gender Identity Not on file Sexual Orientation Not on file documented as of this encounter Plan of Treatment Not on file documented as of this encounter Visit Diagnoses Diagnosis Infectious colitis, enteritis, and gastroenteritis- Primary documented in this encounter Care Teams Executive Admin Relationship Specialty Start Date End Date Gisela Porras MD [address] [facility] [address] [place] [address] PCP - General Family Practice 11/04/16 documented as of this encounter
--- OUTSIDE RECORDS SUMMARY | 2025-07-08 12:03 | XMS_ITS | Encounter Summary ---
Author Organization [facility] Address [address] [place] [address] Care Team Providers Care Satellite Technician Name Role Phone Gisela Porras MD [...] on file Legal Sex Female 4:05 AM SHANK BONER Gender Identity Not on file Sexual Orientation Not on file documented as of this encounter Plan of Treatment Not on file documented as of this encounter Procedures Procedure Name Priority Date/Time Associated Diagnosis Comments METABOLIC SCREEN Routine 2005 12:15 AM SHANK BONER POC GLUCOSE Routine 2005 8:49 PM SHANK BONER POC GLUCOSE Routine 2005 3:41 PM SHANK BONER POC GLUCOSE Routine 2005 3:10 PM SHANK BONER DRUG SCREEN, MECONIUM Routine 2005 10:03 AM SHANK BONER documented in this encounter Results * METABOLIC SCREEN (2005 12:15 AM SHANK BONER) PKU Sent to Reference Lab INTERFACE SYSTEM 2005 12:1 5 AM SHANK BONER us Monroe Rdz MD CHEMISTRY ORDERABLES Final Res ult Performing Organization Address City/[facility] Co de Phone Number INTERFACE SYSTEM Refer to clinic/hospital department * POC GLUCOSE (2005 8:49 PM SHANK BONER) GLUCOSE POC 72 50 - 80 mg/dL INTERFACE SYSTEM 2005 8:49 PM SHANK BONER us Monroe Rdz MD POINT OF CARE TESTING Final Re sult Performing Organization Address [facility] de Phone Number INTERFACE SYSTEM Refer to clinic/hospital department * POC GLUCOSE (2005 3:41 PM SHANK BONER) GLUCOSE POC 62 50 - 80 mg/dL INTERFACE SYSTEM 2005 3:41 PM SHANK BONER us Jamir Hilton MD POINT OF CARE TESTING Analia l Result Performing Organization Address [facility] de Phone Number INTERFACE SYSTEM Refer to clinic/hospital department * (ABNORMAL) POC GLUCOSE (2005 3:10 PM SHANK BONER) GLUCOSE POC 48(L) 50 - 80 mg/dL INTERFACE SYSTEM 2005 3:10 PM SHANK BONER us Jamir Hilton MD POINT OF CARE TESTING Analia l Result Performing Organization Address [facility] de Phone Number INTERFACE SYSTEM Refer to clinic/hospital department * DRUG SCREEN, MECONIUM (2005 10:03 AM SHANK BONER) DRUG SCREEN, MECONIUM Sent to Reference Lab INTERFACE SYSTEM 2005 10:0 3 AM SHANK BONER us Jamir Hilton MD BODY FLUIDS AND STOOLS COM Final Result INTERFACE SYSTEM Refer to clinic/hospital department documented in this encounter Visit Diagnoses Diagnosis Single liveborn, born in hospital, delivered without mention of delivery- Primary documented in this encounter Care Teams Satellite Technician Relationship Specialty Start Date End Date Gisela Porras MD [address] [address] PCP - General Family Practice 11/04/16 documented as of this encounter
--- OUTSIDE RECORDS SUMMARY | 2025-07-08 12:03 | XMS_ITS | Encounter Summary ---
Author Organization [facility] Address [address] [facility] [address] Care Team Providers Care Dairy Farmer Name Role Phone Gisela Porras MD Primary Care Provider Encounter Details Date Type Department Care Team (Latest Contact Info) Description 2005 Outpatient Historical [facility] [address] [place] [address] Monroe Rdz MD NO ADDRESS ON FILE FOLLOW-UP EXAM NOS (Primary Dx) Social History Tobacco Use Types Packs/Day Years Used Date Smoking Tobacco: Never Assessed Comments Unknown Sex and Gender Information Value Date Recorded Sex Assigned at Not on file Legal Sex Female 4:05 AM ASBESTOS MICROSCOPIST Gender Identity Not on file Sexual Orientation Not on file documented as of this encounter Plan of Treatment Not on file documented as of this encounter Visit Diagnoses Diagnosis Unspecified follow-up examination- Primary documented in this encounter Care Teams Dairy Farmer Relationship Specialty Start Date End Date Gisela Porras MD [address] [facility] [address] [place] [address] PCP - General Family Practice 11/04/16 documented as of this encounter
--- OUTSIDE RECORDS SUMMARY | 2025-07-08 12:03 | XMS_ITS | Encounter Summary ---
Author Organization [facility] Address [address] [place] [address] Care Team Providers Care Associate Professor Of Archaeology Name Role Phone Gisela Porras MD Primary Care Provider Encounter Details Date Type Department Care Team (Late st Contact Info) Description 10/10/2006 Outpatient Historical [facility] [place] Cruzito Mccord, DO [address] [place], [place] [id number] Vomiting Alone (Primary Dx) Social History Tobacco Use Types Packs/Day Years Used Date Smoking Tobacco: Never Assessed Comments Unknown Sex and Gender Information Value Date Recorded Sex Assigned at Not on file Legal Sex Female 4:05 AM ANIMAL TAXONOMIST Gender Identity Not on file Sexual Orientation Not on file documented as of this encounter Plan of Treatment Not on file documented as of this encounter Procedures Procedure Name Priority Date/Time Associated Diagnosis Comments URINALYSIS MICROSCOPY ONLY Routine 10/10/2006 2:23 PM ANIMAL TAXONOMIST URINALYSIS W/REFLEX MICROSCOPIC Routine 10/10/2006 2:23 PM ANIMAL TAXONOMIST documented in this encounter Results * (ABNORMAL) URINALYSIS MICROSCOPY ONLY (10/10/2006 2:23 PM ANIMAL TAXONOMIST) WBC URINE None Seen 0 - 2 INTERFACE SYSTEM RBC UA None Seen 0 - 2 INTERFACE SYSTEM HYALINE CAST None Seen 0 - 2 INTERFA CE SYSTEM BACTERIA UA Small(A) None Seen INTERFAC E SYSTEM 10/10/2006 2:23 PM ANIMAL TAXONOMIST us Cruzito Mujica DO URINE ORDERABLES Final Result Performing Organization Address City/[facility] Co de Phone Number INTERFACE SYSTEM Refer to clinic/hospital department * (ABNORMAL) URINALYSIS (10/10/2006 2:23 PM ANIMAL TAXONOMIST) COLOR UA Yellow Straw INTERFACE SYSTEM Comment:CATH [...] Yes(A) No INTERFACE SYSTEM 10/10/2006 2:23 PM ANIMAL TAXONOMIST us Cruzito Mujica DO URINE ORDERABLES Final Result Performing Organization Address City/[facility] Co de Phone Number INTERFACE SYSTEM Refer to clinic/hospital department documented in this encounter Visit Diagnoses Diagnosis Vomiting alone- Primary documented in this encounter Care Teams Associate Professor Of Archaeology Relationship Specialty Start Date End Date Gisela Porras MD [address] [facility] [address] [place] [address] PCP - General Family Practice 11/04/16 documented as of this encounter
--- OUTSIDE RECORDS SUMMARY | 2025-07-08 12:03 | XMS_ITS | Encounter Summary ---
Author Organization [facility] Address [address] [place] [address] Care Team Providers Care Conference Coordinator Name Role Phone Gisela Porras MD Primary Care Provider Encounter Details Date Type Department Care Team (Latest Contact Info) Description 2005 Outpatient Historical [facility] acks [address] [place] [phone] Monroe Rdz MD NO ADDRESS ON FILE OTITIS MEDIA NOS (Primary Dx) Social History Tobacco Use Types Packs/Day Years Used Date Smoking Tobacco: Never Assessed Comments Unknown Sex and Gender Information Value Date Recorded Sex Assigned at Not on file Legal Sex Female 4:05 AM STRIKE OUT MACHINE OPERATOR Gender Identity Not on file Sexual Orientation Not on file documented as of this encounter Plan of Treatment Not on file documented as of this encounter Visit Diagnoses Diagnosis Unspecified otitis media- Primary documented in this encounter Care Teams Conference Coordinator Relationship Specialty Start Date End Date Gisela Porras MD [address] [facility] [address] [place] [address] PCP - General Family Practice 11/04/16 documented as of this encounter
--- OUTSIDE RECORDS SUMMARY | 2025-07-08 12:03 | XMS_ITS | Encounter Summary ---
Author Organization [facility] Address [address] [place] [address] Care Team Providers Care Mainframe Systems Engineer Name Role Phone Gisela Porras MD Primary Care Provider Encounter Details Date Type Department Care Team (Latest Contact Info) Description 03/18/2006 Outpatient Historical [facility] acks [address] [place] [address] Monroe Rdz MD NO ADDRESS ON FILE Routine Child Health Exam (Primary Dx); Vaccin Hem Influenza B; Vaccin Strep Pneumoniae; Vac-Dis Combinations NEC Social History Tobacco Use Types Packs/Day Years Used Date Smoking Tobacco: Never Assessed Comments Unknown Sex and Gender Information Value Date Recorded Sex Assigned at Not on file Legal Sex Female 4:05 AM CERTIFIED RESPIRATORY THERAPIST Gender Identity Not on file Sexual Orientation [...] diseases documented in this encounter Care Teams Mainframe Systems Engineer Relationship Specialty Start Date End Date Gisela Porras MD [address] [facility] [address] [place] [address] PCP - General Family Practice 11/04/16 documented as of this encounter
--- OUTSIDE RECORDS SUMMARY | 2025-07-08 12:03 | XMS_ITS | Encounter Summary ---
Author Organization [facility] Address [address] [place] [address] Care Team Providers Care Supervisor Wet Room Name Role Phone Gisela Porras MD Primary Care Provider Encounter Details Date Type Department Care Team (Latest Contact Info) Description 10/13/2006 Outpatient Historical [facility] [address] [place] [address] [place] Newsome MD [address] [place] [id number] Unspecified Congenital Cataract (Primary Dx) Social History Tobacco Use Types Packs/Day Years Used Date Smoking Tobacco: Never Assessed Comments Unknown Sex and Gender Information Value Date Recorded Sex Assigned at Not on file Legal Sex Female 4:05 AM COSMETIC SALES ASSISTANT Gender Identity Not on file Sexual Orientation Not on file documented as of this encounter Plan of Treatment Not on file documented as of this encounter Visit Diagnoses Diagnosis Unspecified congenital cataract- Primary documented in this encounter Care Teams Supervisor Wet Room Relationship Specialty Start Date End Date Gisela Porras MD [address] [facility] [address] [place] [id number] PCP - General Family Practice 11/04/16 documented as of this encounter
[2025-07-08 12:21] VITALS: PULSE 96; O2SAT 97
[2025-07-08 12:30] LABS: Hematocrit 40.1 % (36-47); Hemoglobin 13.00 g/dL (12.4-14.8); Mean Corpuscular HGB Conc 32.4 g/dL (30-55); Mean Corpuscular Hemoglobin 28.0 pg (27-33); Mean Corpuscular Volume 86.4 fl (85-98); Nucleated Red Blood Cells % 0 %; Platelet Count 332 10^3/cmm (157-399); Red Blood Count 4.64 10^6/uL (3.85-5.65); White Blood Count 6.88 10^3/uL (4.5-13.0)
[2025-07-08 12:30] LABS: Glucose Urine UA Negative (Normal); Nitrate Urine Negative (Negative)
[2025-07-08 12:35] LABS: Add Urine Microscopic? YES
--- NOTE | 2025-07-08 12:40 | W.ED.ABDPA2 ---
HPI - Abdominal Pain General: Chief Complaint: Abdominal Pain Stated Complaint: abd pain Time Seen by Provider: 07/08/25 12:01 Source: patient and other (nursing home staff) Mode of arrival: ambulatory History of Present Illness: This patient presents to the emergency department from her [place] [facility] accompanied by one of the staff members. She apparently has had abdominal pain which she states has been present approximately 5 days or since Thursday. Home staff attendant states this is the first time she is known about it but she did not work yesterday. The pain has been predominantly in her abdomen. The patient states that it is sometimes in her left side but sometimes in her right side. It seems to be affected by urination but is not affected by bowel movements. She has not had any episodes of nausea or vomiting but states she has had loose stool but no blood in her stools. There has been no reported GI illness in the [place] [facility] [place] by staff. She ate this morning prior to arrival states she ate 3 hotdogs and pie that they made at the [place] [facility]. She states she has not had her period yet this month and is not sexually active. She has had no prior abdominal surgeries and denies any history of fever or recent travel bad food exposure or recent illness exposure etc. She states she has not been awakened at night because of the discomfort. She denied any other specific symptoms or complaints at this time. MD elicited complaint: abdominal pain Pain Consistency: intermittent Relieving factors: nothing Associated Symptoms: Denies chills, dysuria, fever(s) and syncope Related Data Home Medications ?Medication ?Instructions ?Recorded ?Confirmed norgestimate-ethinyl estradiol 1 tab PO DAILY 05/01/25 07/03/25 0.18mg/0.215mg/0.25mg-0.035mg(28)tablet (Tri-Sprintec (28)) olanzapine 5 mg tablet (Zyprexa) 2.5 mg PO TID 07/03/25 07/03/25 Previous Rx's ?Medication ?Instructions ?Recorded azelastine 137 mcg (0.1 %) nasal 2 spray intranasal BID #30 mL 02/02/25 spray aripiprazole 10 mg tablet 10 mg PO DAILY 30 days #30 tabs 06/02/25 hydroxyzine pamoate 25 mg capsule 50 mg (2 x 25 mg) PO Q6H PRN 06/02/25 Anxiety 30 days #120 caps melatonin 10 mg tablet 10 mg PO DAILY 30 days #30 tabs 06/02/25 prazosin 2 mg capsule 2 mg PO BEDTIME 30 days #30 caps 06/02/25 sertraline 100 mg tablet 200 mg (2 x 100 mg) PO DAILY 30 06/02/25 days #60 tabs trazodone 50 mg tablet 50 mg PO BEDTIME PRN Sleep 30 days 06/02/25 #30 tabs metformin 500 mg tablet,extended 500 mg PO BID #60 tabs 07/03/25 release 24 hr (Glucophage XR) nitrofurantoin 100 mg PO BID 5 days #10 caps 07/08/25 monohydrate/macrocrystals 100 mg capsule (Macrobid) Allergies Allergy/AdvReac Type Severity Reaction Status Date / Time No Known Allergies Allergy Verified 07/03/25 09:20 Review of Systems Const: Denies: fever(s) or chills Eyes: Reports: change in vision ENMT: Denies: throat pain, odynophagia, nasal discharge or nasal congestion Card: Denies: palpitations, syncope or pre-syncope Resp: Denies: dyspnea, productive cough or non-productive cough GI: Reports: abdominal pain : Denies: flank pain, difficulty voiding, dysuria, urinary frequency, vaginal bleeding or vaginal discharge Musc: Denies: neck pain, back pain, extremity pain or extremity swelling Skin/Breast: Denies: rash, pruritus or erythema Neuro: Denies: headache(s), numbness in extremities or weakness in extremities Psych: Reports: mood swings Endo: Denies: polyuria or polydipsia PFSH ED PFSH: Medical History Hyperlipidemia, mixed Oppositional defiant disorder Generalized anxiety disorder Pneumonia Cerumen impaction Oral contraceptive pill surveillance Sleep disorder Environmental and seasonal allergies Surgical History No history of previous surgery Family History Other Adopted Social History Smoking and tobacco/nicotine status: former use of tobacco/nicotine Second hand smoke exposure: No Alcohol intake: never Substance/Drug Use: never Adopted: Yes Caregiver/support person: Yes Lives independently: No Household members: caregiver Housing: House Marital status: Single Number of children: 0 Highest education level completed: 12th Grade, No Diploma service: No Current occupational status: disabled Pets and animals: No Do you think of yourself as: Straight/Heterosexual Current gender identity: Female Physical Exam Narrative: EXAM NARRATIVE: The patient appears to be in no acute distress. She makes good eye contact and smiles quite excessively throughout the conversation. Const: COMMON NORMALS: no acute distress, patient oriented x3, healthy appearing and alert GENERAL APPEARANCE: cooperative and comfortable HENMT: COMMON NORMALS: atraumatic, Normal nasal mucous membranes and turbinates present and moist oral mucous membranes HEAD & SCALP: atraumatic NOSE: Normal nasal mucous membranes and turbinates present Eye: COMMON NORMALS: Equal, round and reactive pupils present, conjunctivae normal and no scleral icterus CONJUNCTIVA: Yes conjunctivae normal PUPIL: Yes Equal, round and reactive pupils present Neck/C-Spine: COMMON NORMALS: full ROM Resp: COMMON NORMALS: normal respiratory effort, No use of accessory muscles and clear to auscultation bilaterally AUSCULTATION: clear to auscultation bilaterally Cardio: COMMON NORMALS: regular rate, regular rhythm, No murmurs present (Cardio) and Peripheral pulses 2+ throughout RATE: regular rate RHYTHM: regular rhythm PERIPHERAL PULSES: Peripheral pulses 2+ throughout GI: OTHER: Abdominal examination reveals no masses noted. She does have tenderness in the right paramedian region of her abdomen with no rebound or guarding. She has no other areas of significant tenderness during her abdominal examination. There is no flank tenderness. : COMMON NORMALS: Yes no CVA tenderness BLADDER/KIDNEY EXAM: Yes no CVA tenderness Back/Pelvis: COMMON NORMALS: no CVA tenderness, thoracic and lumbar spine normal to inspection, no thoracic nor lumbar tenderness and thoraco-lumbar ROM normal Extremity: COMMON NORMALS: normal to inspection, full ROM, no calf tenderness and no pedal edema Neuro: COMMON NORMALS: patient oriented x3, moves all extremities and no focal motor deficits SENSORIUM/ORIENTATION: Yes alert Psych: COMMON NORMALS: mental status grossly normal and speech normal ATTITUDE: Yes calm and Yes engaged SPEECH: Yes normal speech INSIGHT: Fair insight present (Psych) JUDGEMENT: Fair judgement present (Psych) Skin: COMMON NORMALS: no rashes or lesions noted, no wounds and turgor normal GENERAL SKIN EXAM: no rashes or lesions noted and turgor normal Course Reevaluation(s): Reevaluation #1: Patient appears to be comfortable. We shared findings with her at this time. She does not have any evidence of a surgical abdomen clinically at this time I do not feel that imaging is warranted. She does have evidence that suggest a urinary tract infection and given her history I think it is reasonable for us to go ahead and treat her for that condition and follow her response. We revisited a review of systems including mental health symptoms etc. which she stated that she was doing okay I did not express any concerns about harm to self or others to me. She is stable at this time to be discharged back to her [place] [facility] on antibiotic therapy. Time: 13:32 Vital Signs: Vital signs: Vital Signs Temperature 98.0 F 07/08/25 12:00 Pulse Rate 96 07/08/25 12:21 Respiratory Rate 18 07/08/25 12:00 Blood Pressure 132/90 07/08/25 12:00 Pulse Oximetry 97 07/08/25 12:21 Oxygen Delivery Me thod Room Air 07/08/25 12:21 MDM - Abdominal Pain Medical Decision Making This patient presented as noted in the HPI. She is clinically very stable and comfortable. Her abdominal examination is reassuring with mild tenderness but no evidence of peritoneal signs or other findings to suggest a surgical abdomen. She also had no nocturnal awakenings from her subjective symptoms. Laboratories were obtained as a initial evaluation for potential etiology of her symptoms and her urinalysis was supportive of a urinary tract infection as a likely cause. She remained clinically stable without any ongoing symptoms or concerns and is reasonable to treat her for 5 days with Macrodantin with following her clinical response. No other indication for further workup or further treatment of other conditions at this time. She voiced understanding of the plan of care. Lab Data I reviewed the patient's lab results. 07/08/25 12:25 07/08/25 12:25 Labs/Radiology: Laboratory Results WBC 6.88 10^3/uL (4.5-13.0) 07/08/25 12:25 RBC 4.64 10^6/uL (3.85-5.65) 07/08/25 12:25 Hgb 13.00 g/dL (12.4-14.8) 07/08/25 12:25 Hct 40.1 % (36-47) 07/08/25 12:25 MCV 86.4 fl (85-98) 07/08/25 12:25 MCH 28.0 pg (27-33) 07/08/25 12:25 MCHC 32.4 g/dL (30-55) 07/08/25 12:25 RDW 13.3 % (12.1-15.1) 07/08/25 12:25 Plt Count 332 10^3/cmm (157-399) 07/08/25 12:25 MPV 9.2 fL (7.4-10.4) 07/08/25 12:25 Neut % (Auto) 60.2 % 07/08/25 12: Lymph % (Auto) 26.9 % 07/08/25 12: [place] % (Auto) 10.3 % 07/08/25 12: Eos % (Auto) 1.9 % 07/08/25 12: Baso % (Auto) 0.6 % 07/08/25: Neut # (Auto) 4.14 10^3/uL (1.8-8.0) 07/08/25 12: Lymph # (Auto) 1.9 10^3/uL (1.5-6.5) 07/08/25: [place] # (Auto) 0.7 10^3/uL (0.2-0.9) 07/08/25: Eos # (Auto) 0.1 10^3/uL (0.0-0.8) 07/08/25: Baso # (Auto) 0.0 10^3/uL (0.0-0.1) 07/08/25: Nucleated RBC % (auto) 0 % 07/08/25: Nucleated RBCs # 0.0 /100WBC 07/08/25 12:25 Sodium 139 mmol/L (136-145) 07/08/25 12:25 Potassium 4.0 mmol/L (3.5-5.1) 07/08/25 12:25 Chloride 104 mmol/L (98-107) 07/08/25 12:25 Carbon Dioxide 22 mmol/L (22-29) 07/08/25 12:25 Anion Gap 17.0 (5-19) 07/08/25 12:25 BUN 10 mg/dL (6-20) 07/08/25 12:25 Creatinine 0.6 mg/dL (0.5-0.9) 07/08/25 12:25 GFR Calculation 128.8 mL/min (90-130) 07/08/25 12:25 Glucose 107 mg/dL (65-115) 07/08/25 12:25 Calculated Osmolality 288 mOsm/kg (285-295) 07/08/25 12:25 Calcium 9.3 mg/dL (8.5-10.5) 07/08/25 12:25 Total Bilirubin 0.2 mg/dL (0.15-1.2) 07/08/25 12:25 AST 25 U/L (0-32) 07/08/25 12:25 ALT 25 U/L (0-33) 07/08/25 12:25 Alkaline Phosphatase 79 U/L (35-105) 07/08/25 12:25 Total Protein 7.1 g/dL (6.6-8.7) 07/08/25 12:25 Albumin 4.0 g/dL (3.5-5.2) 07/08/25 12:25 Globulin 3.1 g/dL (1.3-4.6) 07/08/25 12:25 Lipase 20 U/L (13-60) 07/08/25 12:25 HCG, Qual Negative (Negative) 07/08/25 12:25 Urine Color Yellow (Yellow) 07/08/25 12:10 Urine Appearance Turbid (CLEAR) A 07/08/25 12:10 Urine pH 5.5 (5-7) 07/08/25 12:10 Ur Specific [place] 1.031 (1.005-1.030) H 07/08/25 12:10 Urine Protein Trace (Negative) A 07/08/25 12:10 Urine Glucose (UA) Negative (Normal) 07/08/25 12:10 Urine Ketones Trace (Negative) 07/08/25 12:10 Urine Blood 1+ (Negative) A 07/08/25 12:10 Urine Nitrate Negative (Negative) 07/08/25 12:10 Urine Bilirubin Negative (Negative) 07/08/25 12:10 Urine Urobilinogen 1.0 mg/dL (Negative) 07/08/25 12:10 Ur Leukocyte Esterase 1+ (Negative) A 07/08/25 12:10 Urine RBC 21-50 /hpf (0-2) H 07/08/25 12:10 Urine WBC 21-50 /hpf (0-5) H 07/08/25 12:10 Ur Squamous Epith Cells 11-20 /hpf (0-5) H 07/08/25 12:10 Amorphous Sediment Not Reportable 07/08/25 12:10 Urine Bacteria 4+ /hpf (NONE) H 07/08/25 12:10 Hyaline Casts 7.01 /lpf 07/08/25 12:10 Coarse Granular Casts 0-4 /lpf H 07/08/25 12:10 Urine Mucus 1+ /hpf 07/08/25 12:10 No radiology studies performed this visit Discharge Plan Discharge Patient Disposition: Home Clinical Impression: Urinary tract infection Condition: Stable Prescriptions: New nitrofurantoin monohyd/m-cryst [Macrobid] 100 mg capsule 100 mg PO BID 5 Days Qty: 10 0RF Rx Instructions: must administer with a meal/food No Action olanzapine [Zyprexa] 5 mg tablet 2.5 mg PO TID metformin [Glucophage XR] 500 mg tablet extended release 24 hr 500 mg PO BID Qty: 60 2RF azelastine 137 mcg (0.1 %) spray,non-aerosol 2 spray intranasal BID Qty: 30 5RF hydroxyzine pamoate 25 mg Capsule 50 mg PO Q6H PRN (Reason: Anxiety) 30 Days Qty: 120 1RF trazodone 50 mg Tablet 50 mg PO BEDTIME PRN (Reason: Sleep) 30 Days Qty: 30 1RF sertraline 100 mg Tablet 200 mg PO DAILY 30 Days Qty: 60 1RF prazosin 2 mg capsule 2 mg PO BEDTIME 30 Days Qty: 30 1RF aripiprazole 10 mg Tablet 10 mg PO DAILY 30 Days Qty: 30 1RF melatonin 10 mg tablet 10 mg PO DAILY 30 Days Qty: 30 1RF norgestimate-ethinyl estradiol [Tri-Sprintec (28)] 0.18/0.215/0.25 mg-0.035mg (28) tablet 1 tab PO DAILY Discharge Orders: Discharge ED (Routine); Ordered 07/08/25 Ordered By: Manoj Rubio Referrals: Brennan Velazquez, CAREER GUIDANCE COUNSELOR-C [Primary Care Provider, Family Practice] Discharge Diet: Usual diet Discharge Activity: Increase activity as tolerated Patient Instructions: Opioid Safety, Pain Management, Patient Portal & Leanna Instructions Activity Restrictions/Additional Instructions: As we discussed while you are in the emergency department you have an infection in your kidneys and bladder called urinary tract infection which is likely the cause of your discomfort. We have prescribed a medication to take twice daily for the next 5 days. Is also important that you drink adequate amount of fluids such as water or juices etc. daily. You should aim for drinking at least 2 quarts of fluid daily. If your symptoms do not improve with the treatment or if a worsen or new symptoms develop you are welcome to return to this emergency department for reevaluation. Print Language: Frisian Coding Level of Care Code ED Fur Designer for Carlyn Grullon
[2025-07-08 12:42] LABS: HCG, Serum Qual Negative (Negative)
[2025-07-08 12:48] LABS: Alanine Aminotransferase 25 U/L (0-33); Albumin Level 4.0 g/dL (3.5-5.2); Alkaline Phosphatase 79 U/L (35-105); Aspartate Amino Transferase 25 U/L (0-32); Blood Urea Nitrogen 10 mg/dL (6-20); Calcium 9.3 mg/dL (8.5-10.5); Carbon Dioxide 22 mmol/L (22-29); Chloride 104 mmol/L (98-107); Globulin 3.1 g/dL (1.3-4.6); Glucose 107 mg/dL (65-115); Lipase 20 U/L (13-60); Osmolality Calculated 288 mOsm/kg (285-295); Sodium 139 mmol/L (136-145); Total Protein 7.1 g/dL (6.6-8.7)
[2025-07-08 12:48] LABS: Specific Gravity, Urine 1.031 (1.005-1.030); UA Slide Review UA Slide Review Perf
[2025-07-08 12:50] LABS: Anion Gap 17.0 (5-19); Potassium 4.0 mmol/L (3.5-5.1)
[2025-07-08 13:30] VITALS: BP 106/87; PULSE 65; O2SAT 96
[2025-07-08] MEDS: nitrofurantoin SR (BID) 100 mg Capsule PO (13:45)
[2025-07-08 13:55] VITALS: BP 134/75; PULSE 87; O2SAT 96
== END 2025-07-08 13:56 | disposition home or self-care (01) ==
PROVIDERS: Family Medicine; Emergency Provider Emergency Medicine; PCP Nurse Practitioner
DX: N39.0 Urinary tract infection, site not specified (principal)
CPT/HCPCS: 36415; 80053; 81001; 83690; 84703; 85025; 99284; J7030; J9999

== ENCOUNTER 2025-07-14 11:01 | Outpatient (CLI) | payer MEDICAID, SELFPAY ==
--- NOTE | 2025-07-14 10:00 | US_ITS ---
WS: [id number] RIGHT UPPER QUADRANT ULTRASOUND HISTORY: R74.01 - Elevation of levels of liver transaminase levels COMPARISON: None available. Liver: 13.9 cm in length. Normal liver. The entire liver is poorly visualized due to attenuation. Deep liver is not visualized well. Loss of the normal portal triads. No mass identified. Marked increased echogenicity. Portal Vein: Normal hepatopetal flow with monophasic waveform. Gallbladder: Normally distended gallbladder with no stones or wall thickening. CBD: 0.3 cm Pancreas: Not visualized. Right kidney: 9.7 cm in length. Normal size and echogenicity. No hydronephrosis or mass. Aorta and IVC: Limited. No ascites. US/US liver [id number] IMPRESSION: 1. Technically difficult RIGHT upper quadrant ultrasound due to body habitus. 2. Negative gallbladder. 3. Normal size liver with hepatic steatosis.
== END 2025-07-14 11:02 | disposition home or self-care (01) ==
LOC: RAD 11:03
PROVIDERS: PCP Nurse Practitioner; Visit Provider Nurse Practitioner
DX: R74.01 Elevation of levels of liver transaminase levels (principal); K76.0 Fatty (change of) liver, not elsewhere classified
CPT/HCPCS: 76705

== ENCOUNTER 2025-08-10 14:46 | Inpatient (IN) | payer MEDICAID, SELFPAY ==
[2025-08-10 14:48] VITALS: BP 141/85; PULSE 97; RESP 16; TEMP 36.9; O2SAT 98; BMI 42.4
[2025-08-10 15:22] LABS: Hematocrit 38.7 % (36-47); Hemoglobin 12.90 g/dL (12.4-14.8); Mean Corpuscular HGB Conc 33.3 g/dL (30-55); Mean Corpuscular Hemoglobin 27.5 pg (27-33); Mean Corpuscular Volume 82.5 fl (85-98); Nucleated Red Blood Cells % 0 %; Platelet Count 351 10^3/cmm (157-399); Red Blood Count 4.69 10^6/uL (3.85-5.65); White Blood Count 8.91 10^3/uL (4.5-13.0)
[2025-08-10 15:23] LABS: HCG Qualitative Urine. Negative (Negative)
--- NOTE | 2025-08-10 15:35 | W.ED.OVERDOS ---
Documented by User: FRANKO Osorio 08/10/25 19:24 HPI - Overdose General: Chief Complaint: Overdose Stated Complaint: drank bleach Time Seen by Provider: 08/10/25 14:50 History of Present Illness: Patient is a 19-year-old female that lives in an independent living facility with staffing due to mental health, with her mother as her guardian, presents to the emergency room after drinking bleach. This was approximately half a cup. Poison control was called by the facility, and recommended taking milk and bring to emergency room by EMS. Patient does not feel any symptoms of abdominal discomfort at this time. She has no nausea, no vomiting. She has been at the psychiatric unit here before, the last event was in May. Staff from her independent living facility is at bedside and notes that she has been having some issues with attention-seeking behavior this week. Staff relates that patient is not good at communicating any issues, and acts out instead. This type of issue has happened in the past. Related Data Home Medications ?Medication ?Instructions ?Recorded ?Confirmed norgestimate-ethinyl estradiol 1 tab PO DAILY 05/01/25 08/10/25 0.18mg/0.215mg/0.25mg-0.035mg(28)tablet (Tri-Sprintec (28)) aripiprazole 10 mg disintegrating 10 mg PO QAM 07/08/25 08/10/25 tablet azelastine 137 mcg (0.1 %) nasal 2 spray intranasal BID allergies 07/08/25 08/10/25 spray dextran 70-hypromellose (PF) 0.1 2 drp ophthalmic (eye) Q4H PRN Dry 07/08/25 08/10/25 %-0.3 % eye drops in a dropperette Eyes (Bion Tears (PF)) sertraline 20 mg/mL oral 20 mg PO QAM 07/31/25 08/10/25 concentrate trazodone 50 mg tablet 50 mg PO BEDTIME Sleep 07/31/25 08/10/25 metformin 500 mg tablet,extended 500 mg PO BID 08/10/25 08/10/25 release 24 hr olanzapine 10 mg-samidorphan 10 mg 1 tab PO QPM 08/10/25 08/10/25 tablet (Lybalvi) Previous Rx's ?Medication ?Instructions ?Recorded hydroxyzine pamoate 25 mg capsule 50 mg (2 x 25 mg) PO Q6H PRN 06/02/25 Anxiety 30 days #120 caps prazosin 2 mg capsule 2 mg PO BEDTIME 30 days #30 caps 06/02/25 ketoconazole 2 % topical cream 1 applic topical .at bedtime #60 07/31/25 grams Allergies Allergy/AdvReac Type Severity Reaction Status Date / Time No Known Allergies Allergy Verified 08/10/25 15:02 Review of Systems Const: Denies: fever(s), change in appetite or change in sleep pattern Eyes: Denies: change in vision ENMT: Denies: odynophagia, hoarseness, nasal congestion or post nasal drip Card: Denies: chest pain or swelling of feet/ankles Resp: Denies: dyspnea or non-productive cough GI: Denies: abdominal pain, dysphagia, heartburn, change in bowel habits or hematochezia : Denies: difficulty voiding or hematuria Musc: Denies: neck pain, back pain or joint stiffness Skin/Breast: Denies: rash or pruritus Neuro: Denies: headache(s), difficulty walking or dizziness Psych: Reports: anxiety; Denies: depression, irritability or suicidal ideation Endo: Reports: other (metabolic syndrome ); Denies: hot flashes Dar/Lymph: Denies: easy bruising or enlarged lymph nodes All/Imm: Denies: seasonal rhinorrhea PFS ED PFSH: Medical History (Updated 08/10/25 @ 17:55 by FRANKO Osorio) Obesity (BMI 30-39.9) Hyperlipidemia, mixed Oppositional defiant disorder Generalized anxiety disorder Pneumonia Cerumen impaction Oral contraceptive pill surveillance Sleep disorder Environmental and seasonal allergies Surgical History No history of previous surgery Family History Other Adopted Social History Smoking and tobacco/nicotine status: former use of tobacco/nicotine Second hand smoke exposure: No Alcohol intake: never Substance/Drug Use: never Adopted: Yes Caregiver/support person: Yes Lives independently: No Household members: caregiver Housing: House Marital status: Single Number of children: 0 Highest education level completed: 12th Grade, No Diploma service: No Current occupational status: disabled Pets and animals: No Do you think of yourself as: Straight/Heterosexual Current gender identity: Female Physical Exam Const: GENERAL APPEARANCE: cooperative and well kempt NUTRITIONAL APPEARANCE: obese (BMI 39.2%) ORIENTATION/CONSCIOUSNESS: Yes oriented to person, Yes oriented to place and Yes oriented to time HENMT: COMMON NORMALS: external ears normal and Normal nasal mucous membranes and turbinates present NOSE: Normal nasal mucous membranes and turbinates present and No nasal discharge present EXTERNAL EAR: Yes external ears normal MOUTH: Normal oral and palatal mucosa present Eye: COMMON NORMALS: Equal, round and reactive pupils present and conjunctivae normal EYELID: eyelids normal CONJUNCTIVA: Yes conjunctivae normal PUPIL: Yes Equal, round and reactive pupils present Neck/C-Spine: COMMON NORMALS: Thyroid normal GENERAL: Yes normal visual inspection THYROID: Thyroid normal CERVICAL SPINE: Yes cervical ROM normal Lymph: LYMPHATIC: no lymphadenopathy noted Chest: CHEST: Yes Symmetrical chest wall rise Breast/axilla inspection: Yes Other (large breast > DDD) Resp: COMMON NORMALS: clear to auscultation bilaterally EFFORT & INSPECTION: Yes able to speak in complete sentences AUSCULTATION: clear to auscultation bilaterally Cardio: COMMON NORMALS: regular rate, regular rhythm and No murmurs present (Cardio) RATE: regular rate RHYTHM: regular rhythm HEART SOUNDS: no murmurs GI: COMMON NORMALS: Soft to palpation AUSCULTATION: Yes normoactive bowel sounds PALPATION: Yes Soft to palpation and No Tenderness to palpation present (GI) Back/Pelvis: THORACIC SPINE/UPPER BACK: Yes paraspinal muscle tenderness Extremity: GENERAL: No edema and Yes other findings (Equal strength and range of motion.) Neuro: SENSORIUM/ORIENTATION: Yes oriented to person, Yes oriented to place and Yes oriented to time SPEECH: speech normal GAIT: Yes Normal gait present MOTOR EXAM: No Tremors during motor activity present Psych: COMMON NORMALS: speech normal APPEARANCE: Yes well kempt ATTITUDE: Yes engaged SPEECH: Yes normal speech THOUGHT CONTENT: Yes Suicidality present Course Consultations: Consultation #1: Dr. Dowling accepted Vital Signs: Vital signs: Vital Signs Temperature 98.5 F 08/10/25 14:48 Pulse Rate 106 H 08/10/25 16:00 Respiratory Rate 16 08/10/25 14:48 Blood Pressure 97/59 08/10/25 16:00 Pulse Oximetry 96 08/10/25 16:00 Oxygen Delivery Me thod Room Air 08/10/25 14:48 MDM - Overdose Medical Decision Making Patient is a 19-year-old female that presented to the emergency room with complaints of drinking bleach at 2 PM just prior to arrival. Poison control recommended milk be consumed. Patient did this prior to arrival. Will give 2 g of Carafate, obtain routine labs, and further decision making we will proceed. Lab Data 08/10/25 15:14 08/10/25 15:14 Laboratory Results WBC 8.91 10^3/uL (4.5-13.0) 08/10/25 15:14 RBC 4.69 10^6/uL (3.85-5.65) 08/10/25 15:14 Hgb 12.90 g/dL (12.4-14.8) 08/10/25 15:14 Hct 38.7 % (36-47) 08/10/25 15:14 MCV 82.5 fl (85-98) L 08/10/25 15:14 MCH 27.5 pg (27-33) 08/10/25 15:14 MCHC 33.3 g/dL (30-55) 08/10/25 15:14 RDW 12.9 % (12.1-15.1) 08/10/25 15:14 Plt Count 351 10^3/cmm (157-399) 08/10/25 15:14 MPV 9.1 fL (7.4-10.4) 08/10/25 15:14 Neut % (Auto) 62.3 % 08/10/25 15:14 Lymph % (Auto) 25.7 % 08/10/25 15:14 Brule % (Auto) 10.7 % 08/10/25 15:14 Eos % (Auto) 0.8 % 08/10/25 15:14 Baso % (Auto) 0.3 % 08/10/25 15:14 Neut # (Auto) 5.55 10^3/uL (1.8-8.0) 08/10/25 15:14 Lymph # (Auto) 2.3 10^3/uL (1.5-6.5) 08/10/25 15:14 Brule # (Auto) 1.0 10^3/uL (0.2-0.9) H 08/10/25 15:14 Eos # (Auto) 0.1 10^3/uL (0.0-0.8) 08/10/25 15:14 Baso # (Auto) 0.0 10^3/uL (0.0-0.1) 08/10/25 15:14 Nucleated RBC % (auto) 0 % 08/10/25 15:14 Nucleated RBCs # 0.0 /100WBC 08/10/25 15:14 Sodium 137 mmol/L (136-145) 08/10/25 15:14 Potassium 3.9 mmol/L (3.5-5.1) 08/10/25 15:14 Chloride 100 mmol/L (98-107) 08/10/25 15:14 Carbon Dioxide 22 mmol/L (22-29) 08/10/25 15:14 Anion Gap 18.9 (5-19) 08/10/25 15:14 BUN 14 mg/dL (6-20) 08/10/25 15:14 Creatinine 0.6 mg/dL (0.5-0.9) 08/10/25 15:14 GFR Calculation 128.8 mL/min (90-130) 08/10/25 15:14 Glucose 114 mg/dL (65-115) 08/10/25 15:14 Calculated Osmolality 285 mOsm/kg (285-295) 08/10/25 15:14 Calcium 9.4 mg/dL (8.5-10.5) 08/10/25 15:14 Total Bilirubin 0.2 mg/dL (0.15-1.2) 08/10/25 15:14 AST 29 U/L (0-32) 08/10/25 15:14 ALT 37 U/L (0-33) H 08/10/25 15:14 Alkaline Phosphatase 70 U/L (35-105) 08/10/25 15:14 Total Protein 7.4 g/dL (6.6-8.7) 08/10/25 15:14 Albumin 4.1 g/dL (3.5-5.2) 08/10/25 15:14 Globulin 3.3 g/dL (1.3-4.6) 08/10/25 15:14 HCG, Qual Negative (Negative) 08/10/25 15:07 Salicylates < 0.3 mg/dL (3-10) L 08/10/25 15:14 Acetaminophen < 5.0 ug/mL (10-30) L 08/10/25 15:14 Ethyl Alcohol < 10 mg/dL (0-10) 08/10/25 15:14 No radiology studies performed this visit Discharge Plan Discharge Patient Disposition: Xfer Psychiatric Hosp Clinical Impression: Bleach ingestion, Suicidal intent Condition: Stable Discharge Diet: Usual diet Discharge Activity: Resume usual activity Coding Level of Care Code ED Testing Coordinator for Chg Fwd Documented by User: Tamara De Guzman MD 08/10/25 18:19 HPI - Overdose General: Chief Complaint: Overdose Stated Complaint: drank bleach Time Seen by Provider: 08/10/25 14:50 Related Data Home Medications ?Medication ?Instructions ?Recorded ?Confirmed norgestimate-ethinyl estradiol 1 tab PO DAILY 05/01/25 08/10/25 0.18mg/0.215mg/0.25mg-0.035mg(28)tablet (Tri-Sprintec (28)) aripiprazole 10 mg disintegrating 10 mg PO QAM 07/08/25 08/10/25 tablet azelastine 137 mcg (0.1 %) nasal 2 spray intranasal BID allergies 07/08/25 08/10/25 spray dextran 70-hypromellose (PF) 0.1 2 drp ophthalmic (eye) Q4H PRN Dry 07/08/25 08/10/25 %-0.3 % eye drops in a dropperette Eyes (Bion Tears (PF)) sertraline 20 mg/mL oral 20 mg PO QAM 07/31/25 08/10/25 concentrate trazodone 50 mg tablet 50 mg PO BEDTIME Sleep 07/31/25 08/10/25 metformin 500 mg tablet,extended 500 mg PO BID 08/10/25 08/10/25 release 24 hr olanzapine 10 mg-samidorphan 10 mg 1 tab PO QPM 08/10/25 08/10/25 tablet (Lybalvi) Previous Rx's ?Medication ?Instructions ?Recorded hydroxyzine pamoate 25 mg capsule 50 mg (2 x 25 mg) PO Q6H PRN 06/02/25 Anxiety 30 days #120 caps prazosin 2 mg capsule 2 mg PO BEDTIME 30 days #30 caps 06/02/25 ketoconazole 2 % topical cream 1 applic topical .at bedtime #60 07/31/25 grams Allergies Allergy/AdvReac Type Severity Reaction Status Date / Time No Known Allergies Allergy Verified 08/10/25 15:02 [facility] ED PFS: Medical History (Updated 08/10/25 @ 17:55 by FRANKO Osorio) Obesity (BMI 30-39.9) Hyperlipidemia, mixed Oppositional defiant disorder Generalized anxiety disorder Pneumonia Cerumen impaction Oral contraceptive pill surveillance Sleep disorder Environmental and seasonal allergies Surgical History No history of previous surgery Family History Other Adopted Social History Smoking and tobacco/nicotine status: former use of tobacco/nicotine Second hand smoke exposure: No Alcohol intake: never Substance/Drug Use: never Adopted: Yes Caregiver/support person: Yes Lives independently: No Household members: caregiver Housing: House Marital status: Single Number of children: 0 Highest education level completed: 12th Grade, No Diploma service: No Current occupational status: disabled Pets and animals: No Do you think of yourself as: Straight/Heterosexual Current gender identity: Female Course Vital Signs: Vital signs: Vital Signs Temperature 98.5 F 08/10/25 14:48 Pulse Rate 106 H 08/10/25 16:00 Respiratory Rate 16 08/10/25 14:48 Blood Pressure 97/59 08/10/25 16:00 Pulse Oximetry 96 08/10/25 16:00 Oxygen Delivery Me thod Room Air 08/10/25 14:48 MDM - Overdose Medical Decision Making Patient is a 19-year-old female that presented to the emergency room with complaints of drinking bleach at 2 PM just prior to arrival. Poison control recommended milk be consumed. Patient did this prior to arrival. Will give 2 g of Carafate, obtain routine labs, and further decision making we will proceed. The case was discussed with: the nurse practitioner. Evaluation and management service: I agree with the evaluation and management decisions made in this patient's care. Results interpretation: I agree with the study interpretation in this patient's care, I agree with the documentation of the study interpretation. . Lab Data 08/10/25 15:14 08/10/25 15:14 Laboratory Results WBC 8.91 10^3/uL (4.5-13.0) 08/10/25 15:14 RBC 4.69 10^6/uL (3.85-5.65) 08/10/25 15:14 Hgb 12.90 g/dL (12.4-14.8) 08/10/25 15:14 Hct 38.7 % (36-47) 08/10/25 15:14 MCV 82.5 fl (85-98) L 08/10/25 15:14 MCH 27.5 pg (27-33) 08/10/25 15:14 MCHC 33.3 g/dL (30-55) 08/10/25 15:14 RDW 12.9 % (12.1-15.1) 08/10/25 15:14 Plt Count 351 10^3/cmm (157-399) 08/10/25 15:14 MPV 9.1 fL (7.4-10.4) 08/10/25 15:14 Neut % (Auto) 62.3 % 08/10/25 15:14 Lymph % (Auto) 25.7 % 08/10/25 15:14 Brule % (Auto) 10.7 % 08/10/25 15:14 Eos % (Auto) 0.8 % 08/10/25 15:14 Baso % (Auto) 0.3 % 08/10/25 15:14 Neut # (Auto) 5.55 10^3/uL (1.8-8.0) 08/10/25 15:14 Lymph # (Auto) 2.3 10^3/uL (1.5-6.5) 08/10/25 15:14 Brule # (Auto) 1.0 10^3/uL (0.2-0.9) H 08/10/25 15:14 Eos # (Auto) 0.1 10^3/uL (0.0-0.8) 08/10/25 15:14 Baso # (Auto) 0.0 10^3/uL (0.0-0.1) 08/10/25 15:14 Nucleated RBC % (auto) 0 % 08/10/25 15:14 Nucleated RBCs # 0.0 /100WBC 08/10/25 15:14 Sodium 137 mmol/L (136-145) 08/10/25 15:14 Potassium 3.9 mmol/L (3.5-5.1) 08/10/25 15:14 Chloride 100 mmol/L (98-107) 08/10/25 15:14 Carbon Dioxide 22 mmol/L (22-29) 08/10/25 15:14 Anion Gap 18.9 (5-19) 08/10/25 15:14 BUN 14 mg/dL (6-20) 08/10/25 15:14 Creatinine 0.6 mg/dL (0.5-0.9) 08/10/25 15:14 GFR Calculation 128.8 mL/min (90-130) 08/10/25 15:14 Glucose 114 mg/dL (65-115) 08/10/25 15:14 Calculated Osmolality 285 mOsm/kg (285-295) 08/10/25 15:14 Calcium 9.4 mg/dL (8.5-10.5) 08/10/25 15:14 Total Bilirubin 0.2 mg/dL (0.15-1.2) 08/10/25 15:14 AST 29 U/L (0-32) 08/10/25 15:14 ALT 37 U/L (0-33) H 08/10/25 15:14 Alkaline Phosphatase 70 U/L (35-105) 08/10/25 15:14 Total Protein 7.4 g/dL (6.6-8.7) 08/10/25 15:14 Albumin 4.1 g/dL (3.5-5.2) 08/10/25 15:14 Globulin 3.3 g/dL (1.3-4.6) 08/10/25 15:14 HCG, Qual Negative (Negative) 08/10/25 15:07 Salicylates < 0.3 mg/dL (3-10) L 08/10/25 15:14 Acetaminophen < 5.0 ug/mL (10-30) L 08/10/25 15:14 Ethyl Alcohol < 10 mg/dL (0-10) 08/10/25 15:14 Discharge Plan Discharge Patient Disposition: Xfer Psychiatric Hosp Clinical Impression: Bleach ingestion, Suicidal intent Condition: Stable Discharge Diet: Usual diet Discharge Activity: Resume usual activity Coding Level of Care Code ED Testing Coordinator for Carlyn Grullon
[2025-08-10 15:37] LABS: Alanine Aminotransferase 37 U/L (0-33); Albumin Level 4.1 g/dL (3.5-5.2); Alkaline Phosphatase 70 U/L (35-105); Anion Gap 18.9 (5-19); Aspartate Amino Transferase 29 U/L (0-32); Blood Urea Nitrogen 14 mg/dL (6-20); Calcium 9.4 mg/dL (8.5-10.5); Carbon Dioxide 22 mmol/L (22-29); Chloride 100 mmol/L (98-107); Creatinine Clr Calc Pharmacy 226.7795; Globulin 3.3 g/dL (1.3-4.6); Glucose 114 mg/dL (65-115); Osmolality Calculated 285 mOsm/kg (285-295); Potassium 3.9 mmol/L (3.5-5.1); Sodium 137 mmol/L (136-145); Total Protein 7.4 g/dL (6.6-8.7)
[2025-08-10 15:38] LABS: Acetaminophen < 5.0 ug/mL (10-30); Alcohol Level < 10 mg/dL (0-10); Salicylate < 0.3 mg/dL (3-10)
[2025-08-10] MEDS: sucralfate 1 gm/10 mL Oral Liq UDC 2 GM PO (15:46)
--- NOTE | 2025-08-10 15:51 | PC.PHAR ---
Pt no longer taking Melatonin. Peggy states Olanxapine was dc'd today and is replaced wit Lybalvi 10-10 1 qpm. Picked up from pharmacy today.
[2025-08-10 16:00] VITALS: BP 97/59; PULSE 106; O2SAT 96
--- OUTSIDE RECORDS SUMMARY | 2025-08-10 16:33 | XMS_ITS | Encounter Summary ---
Author Organization [facility] Address [address] [place] [address] Care Team Providers Care Vacuum Kettle Cook Name Role Phone Gisela Porras MD Primary Care Provider [phone] Encounter Details Date Type Department Care Team (Late st Contact Info) Description 10/19/2007 Outpatient Historical [facility] Ophthalmology 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
--- OUTSIDE RECORDS SUMMARY | 2025-08-10 16:33 | XMS_ITS | Encounter Summary ---
Author Organization [facility] Address [address] [place] [address] Care Team Providers Care Package Worker Name Role Phone Gisela Porras MD Primary Care Provider Encounter Details Date Type Department Care Team (Latest Contact Info) Description 10/13/2006 Outpatient Historical [facility] Ophthalmology 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
--- OUTSIDE RECORDS SUMMARY | 2025-08-10 16:33 | XMS_ITS | Encounter Summary ---
Author Organization [facility] Address [address] [place] [address] Care Team Providers Care Program Professional Name Role Phone Gisela Porras MD Primary Care Provider Encounter Details Date Type Department Care Team (Latest Contact Info) Description 11/24/2008 Inpatient Historical [facility] Outpatient Surgery [place] [address] [facility] [place] [address] Jamir Reyes, DDS [address] [place] [address] Unspecified Dental Caries (Primary Dx) Social History Tobacco Use Types Packs/Day Years Used Date Smoking Tobacco: Never Assessed Comments Unknown Sex and Gender Information Value Date Recorded Sex Assigned at Not on file 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
--- OUTSIDE RECORDS SUMMARY | 2025-08-10 16:33 | XMS_ITS | Encounter Summary ---
Author Organization [facility] Address [address] [place] [address] Care Team Providers Care Azure Architect Name Role Phone Gisela Porras MD Primary Care Provider Encounter Details Date Type Department Care Team (Latest Contact Info) Description 01/29/2006 Outpatient Historical [address] [place] [phone] Monroe Rdz MD NO ADDRESS ON FILE Infectious Colitis, Enteritis, and Gastroenteritis (Primary Dx); Edema Social History Tobacco Use Types Packs/Day Years Used Date Smoking Tobacco: Never Assessed Comments Unknown Sex and Gender Information Value Date Recorded Sex Assigned at Not on file 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
--- OUTSIDE RECORDS SUMMARY | 2025-08-10 16:33 | XMS_ITS | Encounter Summary ---
Author Organization [facility] Address [address] [place] [address] Care Team Providers Care Community Service Officer Name Role Phone Gisela Porras MD Primary Care Provider [phone] Encounter Details Date Type Department Care Team (Latest Contact Info) Description 01/28/2006 Outpatient Historical [id number] [place] [address] Frank Stanton MD NO ADDRESS ON FILE Infectious Colitis, Enteritis, and Gastroenteritis (Primary Dx); Edema Social History Tobacco Use Types Packs/Day Years Used Date Smoking Tobacco: Never Assessed Comments Unknown Sex and Gender Information Value Date Recorded Sex Assigned at Not on file Legal Sex Female 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
--- OUTSIDE RECORDS SUMMARY | 2025-08-10 16:33 | XMS_ITS | Encounter Summary ---
Author Organization [facility] Address [address] [facility] [place] [address] Care Team Providers Care Moving Picture Operator Name Role Phone Gisela Porras MD Primary Care Provider [phone] Encounter Details Date Type Department Care Team (Latest Contact Info) Description 2005 Outpatient Historical [facility] [address]ks [address] 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
--- OUTSIDE RECORDS SUMMARY | 2025-08-10 16:33 | XMS_ITS | Encounter Summary ---
Author Organization [facility] Address [address] [place] [address] Care Team Providers Care Assembly And Packing Supervisor Name Role Phone Gisela Porras MD Primary Care Provider Encounter Details Date Type Department Care Team (Latest Contact Info) Description 01/01/2006 Outpatient Historical [facility] Ophthalmology 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
--- OUTSIDE RECORDS SUMMARY | 2025-08-10 16:33 | XMS_ITS | Encounter Summary ---
Author Organization [facility] Address [address] [place] [address] Care Team Providers Care Airplane Cabin Attendant Name Role Phone Gisela Porras MD Primary Care Provider Encounter Details Date Type Department Care Team (Latest Contact Info) Description 10/10/2006 Outpatient Historical [facility] [address] [place] [phone] Fabi Briones MD NO ADDRESS ON FILE Infectious Colitis, Enteritis, and Gastroenteritis (Primary Dx) Social History Tobacco Use Types Packs/Day Years Used Date Smoking Tobacco: Never Assessed Comments Unknown Sex and Gender Information Value Date Recorded Sex Assigned at Not on file 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
--- OUTSIDE RECORDS SUMMARY | 2025-08-10 16:33 | XMS_ITS | Encounter Summary ---
Author Organization [facility] Address [address] [place] [address] Care Team Providers Care Partition Notcher Name Role Phone Gisela Porras MD Primary Care Provider [phone] Encounter Details Date Type Department Care Team [...] on file Legal Sex Female 4:05 AM EMERGENCY VETERINARY TECHNICIAN Gender Identity Not on file Sexual Orientation Not on file documented as of this encounter Plan of Treatment Not on file documented as of this encounter Procedures Procedure Name Priority Date/Time Associated Diagnosis Comments METABOLIC SCREEN Routine 2005 12:15 AM EMERGENCY VETERINARY TECHNICIAN POC GLUCOSE Routine 2005 8:49 PM EMERGENCY VETERINARY TECHNICIAN POC GLUCOSE Routine 2005 3:41 PM EMERGENCY VETERINARY TECHNICIAN POC GLUCOSE Routine 2005 3:10 PM EMERGENCY VETERINARY TECHNICIAN DRUG SCREEN, MECONIUM Routine 2005 10:03 AM EMERGENCY VETERINARY TECHNICIAN documented in this encounter Results * METABOLIC SCREEN (2005 12:15 AM EMERGENCY VETERINARY TECHNICIAN) PKU Sent to Reference Lab INTERFACE SYSTEM 2005 12:1 5 AM EMERGENCY VETERINARY TECHNICIAN us Monroe Rdz MD CHEMISTRY ORDERABLES Final Res ult Performing Organization Address City/[facility] Co de Phone Number INTERFACE SYSTEM Refer to clinic/hospital department * POC GLUCOSE (2005 8:49 PM EMERGENCY VETERINARY TECHNICIAN) GLUCOSE POC 72 50 - 80 mg/dL INTERFACE SYSTEM 2005 8:49 PM EMERGENCY VETERINARY TECHNICIAN us Monroe Rdz MD POINT OF CARE TESTING Final Re sult Performing Organization Address [facility] de Phone Number INTERFACE SYSTEM Refer to clinic/hospital department * POC GLUCOSE (2005 3:41 PM EMERGENCY VETERINARY TECHNICIAN) GLUCOSE POC 62 50 - 80 mg/dL INTERFACE SYSTEM 2005 3:41 PM EMERGENCY VETERINARY TECHNICIAN us Jamir Hilton MD POINT OF CARE TESTING Analia l Result Performing Organization Address [facility] de Phone Number INTERFACE SYSTEM Refer to clinic/hospital department * (ABNORMAL) POC GLUCOSE (2005 3:10 PM EMERGENCY VETERINARY TECHNICIAN) GLUCOSE POC 48(L) 50 - 80 mg/dL INTERFACE SYSTEM 2005 3:10 PM EMERGENCY VETERINARY TECHNICIAN us Jamir Hilton MD POINT OF CARE TESTING Analia l Result Performing Organization Address [facility] de Phone Number INTERFACE SYSTEM Refer to clinic/hospital department * DRUG SCREEN, MECONIUM (2005 10:03 AM EMERGENCY VETERINARY TECHNICIAN) DRUG SCREEN, MECONIUM Sent to Reference Lab INTERFACE SYSTEM 2005 10:0 3 AM EMERGENCY VETERINARY TECHNICIAN us Jamir Hilton MD BODY FLUIDS AND STOOLS COM Final Result INTERFACE SYSTEM Refer to clinic/hospital department documented in this encounter Visit Diagnoses Diagnosis Single liveborn, born in hospital, delivered without mention of delivery- Primary documented in this encounter Care Teams Partition Notcher Relationship Specialty Start Date End Date Gisela Porras MD [address] [address] PCP - General Family Practice 11/04/16 documented as of this encounter
--- OUTSIDE RECORDS SUMMARY | 2025-08-10 16:33 | XMS_ITS | Clinical Summary ---
Author Organization [facility] Address [address] [place] [address] Care Team Providers Care Search Engine Optimizer Name Role Phone Gisela Porras MD Primary Care Provider Allergies No known active allergies Medications medroxyPROGESTERo ne (DEPO-PROVERA) 150 mg/mL SyringeIndication s:Encounter for initial prescription of contraceptive pills Inject 1 mL (150 mg) by intramuscular injection every 90 days. 1 mL 3 02/10/20 19 Active fluticasone propionate (FLONASE) 50 mcg/spray [place], Suspension nasal inhaler Administer 2 Sprays in [...] on file Legal Sex Female 4:05 AM TRANSPORTATION ANALYST Gender Identity Not on file Sexual Orientation [...] (#1) 2025 Insurance [place]ICAID [place] Care Teams Search Engine Optimizer Relationship Specialty Start Date End Date Gisela Porras MD [address] [address] PCP - General Family Practice 11/04/16
--- OUTSIDE RECORDS SUMMARY | 2025-08-10 16:33 | XMS_ITS | Encounter Summary ---
Author Organization [facility] Address [address] [facility] [place] [address] Care Team Providers Care Building Components Designer Name Role Phone Gisela Porras MD Primary Care Provider Encounter Details Date Type Department Care Team (Latest Contact Info) Description 2005 Outpatient Historical [facility] acks [address] 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
--- OUTSIDE RECORDS SUMMARY | 2025-08-10 16:33 | XMS_ITS | Encounter Summary ---
Author Organization [facility] Address [address] [facility] [place] [address] Care Team Providers Care Parachute Panel Joiner Name Role Phone Gisela Porras MD Primary Care Provider [phone] Encounter Details Date Type Department Care Team (Latest Contact Info) Description 2005 Outpatient Historical [facility] [address] [place] [phone] Monroe Rdz MD NO ADDRESS ON FILE OTITIS MEDIA NOS (Primary Dx) Social History Tobacco Use Types Packs/Day Years Used Date Smoking Tobacco: Never Assessed Comments Unknown Sex and Gender Information Value Date Recorded Sex Assigned at Not on file Legal Sex Female 4:05 AM MEDICAL LAB DIRECTOR Gender Identity Not on file Sexual Orientation Not on file documented as of this encounter Plan of Treatment Not on file documented as of this encounter Visit Diagnoses Diagnosis Unspecified otitis media- Primary documented in this encounter Care Teams Parachute Panel Joiner Relationship Specialty Start Date End Date Gisela Porras MD [address] [facility] [address] [place] [phone] PCP - General Family Practice 11/04/16 documented as of this encounter
--- OUTSIDE RECORDS SUMMARY | 2025-08-10 16:33 | XMS_ITS | Encounter Summary ---
Author Organization [facility] Address [address] [facility] [place] [address] Care Team Providers Care Engineering Technician Name Role Phone Gisela Porras MD Primary Care Provider [phone] Encounter Details Date Type Department Care Team (Latest Contact Info) Description 03/18/2006 Outpatient Historical [facility] [address] [place] [address] Monroe Rdz MD NO ADDRESS ON FILE Routine Child Health Exam (Primary Dx); Vaccin Hem Influenza B; Vaccin Strep Pneumoniae; Vac-Dis Combinations NEC Social History Tobacco Use Types Packs/Day Years Used Date Smoking Tobacco: Never Assessed Comments Unknown Sex and Gender Information Value Date Recorded Sex Assigned at Not on file Legal Sex Female 4:05 AM FLOOR POLISHER Gender Identity Not on file Sexual Orientation [...] diseases documented in this encounter Care Teams Engineering Technician Relationship Specialty Start Date End Date Gisela Porras MD [address] [facility] [address] [place] [address] PCP - General Family Practice 11/04/16 documented as of this encounter
--- OUTSIDE RECORDS SUMMARY | 2025-08-10 16:33 | XMS_ITS | Encounter Summary ---
Author Organization [facility] Address [address] [place] [address] Care Team Providers Care Conductor Sleeping Car Name Role Phone Gisela Porras MD Primary Care Provider Encounter Details Date Type Department Care Team (Late st Contact Info) Description 10/10/2006 Outpatient Historical [facility] Cruzito Mccord, DO [address] [place], [place] [id number] Vomiting Alone (Primary Dx) Social History Tobacco Use Types Packs/Day Years Used Date Smoking Tobacco: Never Assessed Comments Unknown Sex and Gender Information Value Date Recorded Sex Assigned at Not on file Legal Sex Female 4:05 AM LAB COURIER Gender Identity Not on file Sexual Orientation Not on file documented as of this encounter Plan of Treatment Not on file documented as of this encounter Procedures Procedure Name Priority Date/Time Associated Diagnosis Comments URINALYSIS MICROSCOPY ONLY Routine 10/10/2006 2:23 PM LAB COURIER URINALYSIS W/REFLEX MICROSCOPIC Routine 10/10/2006 2:23 PM LAB COURIER documented in this encounter Results * (ABNORMAL) URINALYSIS MICROSCOPY ONLY (10/10/2006 2:23 PM LAB COURIER) WBC URINE None Seen 0 - 2 INTERFACE SYSTEM RBC UA None Seen 0 - 2 INTERFACE SYSTEM HYALINE CAST None Seen 0 - 2 INTERFA CE SYSTEM BACTERIA UA Small(A) None Seen INTERFAC E SYSTEM 10/10/2006 2:23 PM LAB COURIER us Cruzito Mujica DO URINE ORDERABLES Final Result Performing Organization Address City/[facility] Co de Phone Number INTERFACE SYSTEM Refer to clinic/hospital department * (ABNORMAL) URINALYSIS (10/10/2006 2:23 PM LAB COURIER) COLOR UA Yellow Straw INTERFACE SYSTEM Comment:CATH [...] Yes(A) No INTERFACE SYSTEM 10/10/2006 2:23 PM LAB COURIER us Cruzito Mujica DO URINE ORDERABLES Final Result Performing Organization Address City/[facility] Co de Phone Number INTERFACE SYSTEM Refer to clinic/hospital department documented in this encounter Visit Diagnoses Diagnosis Vomiting alone- Primary documented in this encounter Care Teams Conductor Sleeping Car Relationship Specialty Start Date End Date Gisela Porras MD [address] [facility] [address] [place] [address] PCP - General Family Practice 11/04/16 documented as of this encounter
--- OUTSIDE RECORDS SUMMARY | 2025-08-10 16:33 | XMS_ITS | Encounter Summary ---
Author Organization [facility] Address [address] [facility] [place] [address] Care Team Providers Care Ply Bander Name Role Phone Gisela Porras MD Primary Care Provider Encounter Details Date Type Department Care Team (Latest Contact Info) Description 2005 Outpatient Historical [facility] acks [address] [place] [phone] Monroe Rdz MD NO ADDRESS ON FILE Routine child health exam (Primary Dx) Social History Tobacco Use Types Packs/Day Years Used Date Smoking Tobacco: Never Assessed Comments Unknown Sex and Gender Information Value Date Recorded Sex Assigned at Not on file Legal Sex Female 4:05 AM INSURANCE AUDITOR Gender Identity Not on file Sexual Orientation Not on file documented as of this encounter Plan of Treatment Not on file documented as of this encounter Visit Diagnoses Diagnosis Routine child health exam- Primary Routine infant or child health check documented in this encounter Care Teams Ply Bander Relationship Specialty Start Date End Date Gisela Porras MD [address] [facility] [address] [place] [address] PCP - General Family Practice 11/04/16 documented as of this encounter
--- OUTSIDE RECORDS SUMMARY | 2025-08-10 16:33 | XMS_ITS | Encounter Summary ---
Author Organization [facility] Address [address] [place] [address] Care Team Providers Care Form Coverer Name Role Phone Gisela Porras MD Primary Care Provider [phone] Encounter Details Date Type Department Care Team (Latest Contact Info) Description 08/08/2006 Outpatient Historical [facility] Monroe Rdz MD NO ADDRESS ON FILE Acute Upper Respiratory Infections of Unspecified Site (Primary Dx) Social History Tobacco Use Types Packs/Day Years Used Date Smoking Tobacco: Never Assessed Comments Unknown Sex and Gender Information Value Date Recorded Sex Assigned at Not on file Legal Sex Female 4:05 AM IMPROVEMENT LEADER Gender Identity Not on file Sexual Orientation Not on file documented as of this encounter Plan of Treatment Not on file documented as of this encounter Visit Diagnoses Diagnosis Acute upper respiratory infections of unspecified site- Primary documented in this encounter Care Teams Form Coverer Relationship Specialty Start Date End Date Gisela Porras MD [address] [place] [phone] PCP - General Family Practice 11/04/16 documented as of this encounter
--- OUTSIDE RECORDS SUMMARY | 2025-08-10 16:33 | XMS_ITS | Encounter Summary ---
Author Organization [facility] Address [address] [facility] [place] [address] Care Team Providers Care Detective Bowling Alley Name Role Phone Gisela Porras MD Primary Care Provider Encounter Details Date Type Department Care Team (Latest Contact Info) Description 05/06/2006 Outpatient Historical [facility] [address]ks [address] [place] [address] Monroe Rdz MD NO ADDRESS ON FILE Routine Child Health Exam (Primary Dx); Vaccin Strep Pneumoniae; Vac-Dis Combinations NEC Social History Tobacco Use Types Packs/Day Years Used Date Smoking Tobacco: Never Assessed Comments Unknown Sex and Gender Information Value Date Recorded Sex Assigned at Not on file Legal Sex Female 4:05 AM PRODUCTION DIRECTOR Gender Identity Not on file Sexual [...] diseases documented in this encounter Care Teams Detective Bowling Alley Relationship Specialty Start Date End Date Gisela Porras MD [address] [facility] [address] [place] [phone] PCP - General Family Practice 11/04/16 documented as of this encounter
[2025-08-10 20:36] LABS: Glucose Urine UA Negative (Normal); Nitrate Urine Negative (Negative); Specific Gravity, Urine 1.021 (1.005-1.030)
[2025-08-10 20:38] LABS: Add Urine Microscopic? YES
[2025-08-10 21:10] VITALS: BP 128/81; PULSE 97; RESP 16; TEMP 36.4; O2SAT 97
[2025-08-10 21:13] LABS: PCP Screen Urine Negative (Negative)
[2025-08-10 22:00] VITALS: BP 128/81; PULSE 97; RESP 16; TEMP 36.4; O2SAT 97
--- NOTE | 2025-08-10 22:46 | PC.NURSE ---
GUARDIAN REQUESTS THAT THE PATIENT IS NOT ALLOWED TO MAKE OR RECEIVE ANY PHONE CALLS AT ALL! THE ONLY EXCEPTION IN THE GUARDIAN HERSELF [place] JOY.
[2025-08-11 06:00] VITALS: BP 101/69; PULSE 84; RESP 16; TEMP 36.9; O2SAT 96
--- NOTE | 2025-08-11 08:36 | NUR.SHIFT ---
Pt states that she slept good last night. She rates her anxiety a 4/10 and depression a 7/10. She endores SI and states that her plan is a gun This nurse asked pt if she had access to a gun and she said it was locked up at her parents house. No reports of HI or hallucinations and no pain. She is sitting on the edge of her bed, calm and cooperative during assessment with a 1:1 sitter d/t hypersexuality and intrusive behaviors.
[2025-08-11 13:25] VITALS: BP 103/64; PULSE 91; RESP 16; TEMP 37.1; O2SAT 95
--- NOTE | 2025-08-11 14:01 | W.PM.NPUH&PS ---
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 Intellectual ability commensurate with mild cognitive impairment. Vitals/I&O/Wt Last Vital Signs Temp 98.8 F 08/11/25 13:25 Pulse 91 08/11/25 13:25 Resp 16 08/11/25 13:25 BP 103/64 08/11/25 13:25 Pulse Ox 95 08/11/25 13:25 O2 Del Method Room Air 08/11/25 13:25 Weight last 48 hrs Weight 95.254 kg Data NPU 08/10/25 15:14 08/10/25 15:14 A&P Assessment and plan 1. Dysthymic disorder: 2. PTSD (post-traumatic stress disorder): 3. Oppositional defiant disorder: 4. Suicidal ideation: 5. Depression: 6. Intellectual disability: Plan: This is a 19-year-old white female with a long history of mental health challenges with multiple inpatient hospitalizations and current outpatient services who presented with her fourth hospitalization in the last four months with reports of suicidal thinking and thoughts to self-harm. 1. Continue current medications as prescribed. 2. Encourage individual, group and milieu therapy. 3. Was placed on 1 with inability to contract for safety and history of provocative behavior. Returned to every 15 minute checks for safety 4. Will monitor and determine whether these behaviors represent a decompensation needing intervention or whether this is the reflection of the intermittent explosiveness or poor frustration tolerance is seen with intellectual disability. PDMP PDMP Reviewed: Not Reviewed Involuntary Hold Information Hold Status: Legal Status: Active Guardianship Attestations NPU Medical Necessity Statement*: Inpatient hospitalization is medically necessary and the clinically appropriate intervention at this time. We will monitor medications and make changes as indicated. She will be in the hospital for over 2 midnights. Likely length of stay 4 to 6 days. Coding Level of Care Code Acute Code for [facility] Fwd Diagnoses Dysthymic disorder F34.1 PTSD (post-traumatic stress disorder) F43.10 Oppositional defiant disorder F91.3 Suicidal ideation R45.851 Depression F32.A Intellectual disability F79
[2025-08-11] MEDS: NORGESTIMATE ETHINYL ESTRADIOL PO (14:53)
[2025-08-11] MEDS: [UNRECOGNIZED DRUG - OTHER] PO (14:53)
--- NOTE | 2025-08-11 18:25 | PC.NURSE ---
Dr. Gan gave a v/o for pt to have Macrobid 100mg po BID for 7 days for a UTI that urinalysis is showing.
[2025-08-11] MEDS: nitrofurantoin SR (BID) 100 mg Capsule PO (19:47)
[2025-08-11 19:55] VITALS: BP 114/75; PULSE 79; RESP 18; TEMP 36.9; O2SAT 97
[2025-08-11] MEDS: ketoconazole Cream 15 gm 1 APPLIC TOPICAL (21:05)
[2025-08-11] MEDS: NON-FORMULARY MEDICATION 1 EACH PO (21:05)
[2025-08-12 06:00] VITALS: BP 103/64; PULSE 97; RESP 16; TEMP 36.9; O2SAT 95
[2025-08-12] MEDS: [UNRECOGNIZED DRUG - OTHER] PO (08:44)
[2025-08-12] MEDS: nitrofurantoin SR (BID) 100 mg Capsule PO ×2 (08:44→17:15)
[2025-08-12] MEDS: NORGESTIMATE ETHINYL ESTRADIOL PO (08:44)
[2025-08-12 14:00] VITALS: BP 101/66; PULSE 79; RESP 14; TEMP 36.8; O2SAT 97
--- NOTE | 2025-08-12 17:01 | P.NPUPN_ITS ---
Subjective NPU 2 Subjective: 89-year-old female presenting with a his tory of PTSD, borderline intellectual functioning, borderline personality traits and dysthymia. Patient remained on one-to-one. She had indicated that she was hopeful about going to another home other than the [facility]. She had reported having struggles with boredom and often endorsed feeling let down and disappointed that her place of residence did not respect her and reported that she had hoped that her roommate would no longer be at the home. She had denied any auditory or visual hallucinations. She had been quiet and rested in her room throughout much of the day. She reported no side effects from her medication and stated that she had slept well with the new medication last night. Mental Status Exam 2 MSE Comments: This is an obese white female in hospital scrubs with limited grooming and fleetiing eye contact accompanied by 1-1. No abnormal involuntary motor movements except for psychomotor retardation. She was cooperative with exam in no acute distress. Speech was slightly decreased rate and volume and childlike. Mood described as okay. Her affect was odd and subdued. Thought process was linear and superficial. Thought content: Patient endorsed suicidal thoughts and denied homicidal ideation. There were no delusions reported or noted. She denied auditory or visual hallucinations. Attention and concentration appeared intact and memory was somewhat reliable but no more formally tested. She is alert and oriented to person, place and time. Insight is impaired and judgment is limited and impulse control is impaired. Intellectual ability commensurate with mild cognitive impairment. Vitals/I&O/Wt Last Vital Signs Temp 98.3 F 08/12/25 14:00 Pulse 79 08/12/25 14:00 Resp 14 08/12/25 14:00 BP 101/66 08/12/25 14:00 Pulse Ox 97 08/12/25 14:00 O2 Del Method Room Air 08/12/25 06:00 Data NPU 08/10/25 15:14 08/10/25 15:14 Micro: Microbiology 08/10/25 15:07 Urine Culture - Final Urine,Clean Catch Microbiology 08/10/25 15:07 Urine,Clean Catch Urine Culture - Final A&P Assessment and plan 1. Dysthymic disorder: 2. PTSD (post-traumatic stress disorder): 3. Oppositional defiant disorder: 4. Suicidal ideation: 5. Depression: 6. Intellectual disability: Plan: This is a 19-year-old white female with a long history of mental health challenges with multiple inpatient hospitalizations and current outpatient services who presented with her fourth hospitalization in the last four months with reports of suicidal thinking and thoughts to self-harm. 1. Continue current medications as prescribed. 2. Encourage individual, group and milieu therapy. 3. Was placed on 1-1 with inability to contract for safety and history of provocative behavior. 15 minute checks for safety. 4. Will monitor and determine whether these behaviors represent a decompensation needing intervention or whether this is the reflection of the intermittent explosiveness or poor frustration tolerance is seen with intellectual disability. PDMP PDMP Reviewed: Not Reviewed Involuntary Hold Information 2 Hold Status: Legal Status: Active Guardianship Date/Time Hold Expires: Jake Marinelli Attestations NPU 2 Medical Necessity Statement*: Inpatient hospitalization is medically necessary and the clinically appropriate intervention at this time. We will monitor medications and make changes as indicated. The patient's likely length of stay is 3-5 days. Coding Level of Care Code Acute Code for [facility] Fwd Diagnoses Dysthymic disorder F34.1 PTSD (post-traumatic stress disorder) F43.10 Oppositional defiant disorder F91.3 Suicidal ideation R45.851 Depression F32.A Intellectual disability F79
[2025-08-12 20:20] VITALS: BP 108/67; PULSE 82; RESP 16; TEMP 36.7; O2SAT 95
[2025-08-12] MEDS: ketoconazole Cream 15 gm 1 APPLIC TOPICAL (21:19)
[2025-08-12] MEDS: NON-FORMULARY MEDICATION 1 EACH PO (21:19)
[2025-08-13 06:00] VITALS: BP 108/75; PULSE 75; RESP 16; TEMP 37.1; O2SAT 96
[2025-08-13] MEDS: [UNRECOGNIZED DRUG - OTHER] PO (08:52)
[2025-08-13] MEDS: NORGESTIMATE ETHINYL ESTRADIOL PO (08:52)
[2025-08-13] MEDS: nitrofurantoin SR (BID) 100 mg Capsule PO ×2 (08:52→17:23)
--- NOTE | 2025-08-13 09:16 | NUR.SHIFT ---
Pt states that she slept good last night. When I ask if she is having any anxiety she states a little bit When asking her about depression she states, mmhmm No reports of HI or hallucinations. She endorses SI. When you ask her if she has a plan she smiles and says, yes When you ask her what the plan is, after a very long pause she states I guess a gun She has a 1:1 sitter at bedside. She is calm and cooperative on assessment.
--- NOTE | 2025-08-13 09:45 | PC.NURSE ---
Per Dr. Gan 1:1 sitter is being d/c, but pt is going to be moved to room 151 where she is directly viewed from the nurses station.
--- NOTE | 2025-08-13 13:00 | P.NPUPN_ITS ---
Subjective NPU 2 Subjective: 19-year-old female presenting with a his tory of PTSD, borderline intellectual functioning, borderline personality traits and dysthymia. The patient reported no side effects from her medication. She reports that she had spoken with her father. She had continued to report having no current thoughts of hurting herself. The patient had reported that she had been sleeping better. She did not endorse any nightmares or flashbacks. She had reported feeling bored here. She had reported frustration with going back to [employer]. Mental Status Exam 2 MSE Comments: This is an obese white female in hospital scrubs with limited grooming and fleetiing eye contact accompanied by 1-1. No abnormal involuntary motor movements except for psychomotor retardation. She was cooperative with exam in no acute distress. Speech was slightly decreased in rate and volume and childlike. Mood described as good. Her affect was odd and subdued. Thought process was linear and superficial. Thought content: Patient endorsed suicidal thoughts and denied homicidal ideation. There were no delusions reported or noted. She denied auditory or visual hallucinations. Attention and concentration appeared intact and memory was somewhat reliable but no more formally tested. She is alert and oriented to person, place and time. Insight is impaired and judgment is limited and impulse control is impaired. Intellectual ability commensurate with mild cognitive impairment. Vitals/I&O/Wt Last Vital Signs Temp 98.7 F 08/13/25 06:00 Pulse 75 08/13/25 06:00 Resp 16 08/13/25 06:00 BP 108/75 08/13/25 06:00 Pulse Ox 96 08/13/25 06:00 O2 Del Method Room Air 08/13/25 06:00 Weight last 48 hrs Weight 84.822 kg Data NPU 08/10/25 15:14 08/10/25 15:14 Micro: Microbiology 08/10/25 15:07 Urine Culture - Final Urine,Clean Catch Microbiology 08/10/25 15:07 Urine,Clean Catch Urine Culture - Final A&P Assessment and plan 1. Dysthymic disorder: 2. PTSD (post-traumatic stress disorder): 3. Oppositional defiant disorder: 4. Suicidal ideation: 5. Depression: 6. Intellectual disability: Plan: This is a 19-year-old white female with a long history of mental health challenges with multiple inpatient hospitalizations and current outpatient services who presented with her fourth hospitalization in the last four months with reports of suicidal thinking and thoughts to self-harm. 1. Continue current medications as prescribed. 2. Encourage individual, group and milieu therapy. 3. Was placed on 1-1 with inability to contract for safety and history of provocative behavior. 15 minute checks for safety. 4. Will monitor and determine whether these behaviors represent a decompensation needing intervention or whether this is the reflection of the intermittent explosiveness or poor frustration tolerance is seen with intellectual disability. PDMP PDMP Reviewed: Not Reviewed Involuntary Hold Information 2 Hold Status: Legal Status: Active Guardianship Date/Time Hold Expires: Jake Marinelli Attestations NPU 2 Medical Necessity Statement*: Inpatient hospitalization is medically necessary and the clinically appropriate intervention at this time. We will monitor medications and make changes as indicated. The patient's likely length of stay is 3-5 days. Coding Level of Care Code Acute Code for g Fwd Diagnoses Dysthymic disorder F34.1 PTSD (post-traumatic stress disorder) F43.10 Oppositional defiant disorder F91.3 Suicidal ideation R45.851 Depression F32.A Intellectual disability F79
[2025-08-13 13:34] VITALS: BP 116/76; PULSE 83; RESP 16; TEMP 36.9; O2SAT 99
[2025-08-13 19:58] VITALS: BP 105/68; PULSE 106; RESP 16; TEMP 37.2; O2SAT 97
[2025-08-13] MEDS: NON-FORMULARY MEDICATION 1 EACH PO (20:18)
[2025-08-14 06:00] VITALS: BP 123/78; PULSE 94; RESP 16; TEMP 36.7; O2SAT 96
[2025-08-14] MEDS: NORGESTIMATE ETHINYL ESTRADIOL PO (08:33)
[2025-08-14] MEDS: [UNRECOGNIZED DRUG - OTHER] PO (08:33)
[2025-08-14] MEDS: nitrofurantoin SR (BID) 100 mg Capsule PO (08:33)
[2025-08-14 13:21] VITALS: BP 87/57; PULSE 96; RESP 16; TEMP 36.4; O2SAT 96
--- NOTE | 2025-08-14 13:26 | W.PM.NPUDCS ---
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 2.3 10^3/uL (1.5- 6.5) 08/10/25 15:14 Guthrie # (Auto) 1.0 10^3/uL (0.2- 0.9) H 08/10/25 15:14 Eos # (Auto) 0.1 10^3/uL (0.0- 0.8) 08/10/25 15:14 Baso # (Auto) 0.0 10^3/uL (0.0- 0.1) 08/10/25 15:14 Nucleated RBC % (a uto) 0 % 08/10/25 15:14 Nucleated RBCs # 0.0 /100WBC 08/10/25 15:14 Sodium 137 mmol/L (136-1 45) 08/10/25 15:14 Potassium 3.9 mmol/L (3.5-5 .1) 08/10/25 15:14 Chloride 100 mmol/L (98-10 7) 08/10/25 15:14 Carbon Dioxide 22 mmol/L (22-29) 08/10/25 15:14 Anion Gap 18.9 (5-19) 08/10/25 15:14 BUN 14 mg/dL (6-20) 08/10/25 15:14 Creatinine 0.6 mg/dL (0.5-0. 9) 08/10/25 15:14 GFR Calculation 128.8 mL/min (90- 130) 08/10/25 15:14 Glucose 114 mg/dL (65-115 ) 08/10/25 15:14 Calculated Osmolal ity 285 mOsm/kg (285- 295) 08/10/25 15:14 Calcium 9.4 mg/dL (8.5-10 .5) 08/10/25 15:14 Total Bilirubin 0.2 mg/dL (0.15-1 .2) 08/10/25 15:14 AST 29 U/L (0-32) 08/10/25 15:14 ALT 37 U/L (0-33) H 08/10/25 15:14 Alkaline Phosphata se 70 U/L (35-105) 08/10/25 15:14 Total Protein 7.4 g/dL (6.6-8.7 ) 08/10/25 15:14 Albumin 4.1 g/dL (3.5-5.2 ) 08/10/25 15:14 Globulin 3.3 g/dL (1.3-4.6 ) 08/10/25 15:14 HCG, Qual Negative (Negati ve) 08/10/25 15:07 Urine Color Yellow (Yellow) 08/10/25 15:07 Urine Appearance Turbid (CLEAR) A 08/10/25 15:07 Urine pH 5.5 (5-7) 08/10/25 15:07 Ur Specific Gravit y 1.021 (1.005-1.0 30) 08/10/25 15:07 Urine Protein Negative (Negati ve) 08/10/25 15:07 Urine Glucose (UA) Negative (Normal ) 08/10/25 15:07 Urine Ketones Negative (Negati ve) 08/10/25 15:07 Urine Blood 1+ (Negative) A 08/10/25 15:07 Urine Nitrate Negative (Negati ve) 08/10/25 15:07 Urine Bilirubin Negative (Negati ve) 08/10/25 15:07 Urine Urobilinogen 0.2 mg/dL (Negati ve) 08/10/25 15:07 Ur Leukocyte Gayathri ase 2+ (Negative) A 08/10/25 15:07 Urine RBC 6-10 /hpf (0-2) 08/10/25 15:07 Urine WBC 6-10 /hpf (0-5) 08/10/25 15:07 Ur Squamous Epith Cells 0-5 /hpf (0-5) 08/10/25 15:07 Amorphous Sediment Not Reportable 08/10/25 15:07 Urine Bacteria 4+ /hpf (NONE) H 08/10/25 15:07 Hyaline Casts 0-4 /lpf H 08/10/25 15:07 Salicylates < 0.3 mg/dL (3-10 ) L 08/10/25 15:14 Urine Opiates Scre en Negative ng/mL (N egative) 08/10/25 15:07 Acetaminophen < 5.0 ug/mL (10-3 0) L 08/10/25 15:14 Ur Barbiturates Sc reen Negative ng/mL (N egative) 08/10/25 15:07 Ur Phencyclidine S crn Negative ng/mL (N egative) 08/10/25 15:07 Ur Amphetamines Sc reen Negative ng/mL (N egative) 08/10/25 15:07 U Benzodiazepines Scrn Negative ng/mL (N egative) 08/10/25 15:07 Urine Cocaine Scre en Negative ng/mL (N egative) 08/10/25 15:07 U Marijuana (THC) Screen Negative ng/mL (N egative) 08/10/25 15:07 Ethyl Alcohol < 10 mg/dL (0-10) 08/10/25 15:14 Vitals: Last Vital Signs Temp 97.5 F L 08/14/25 13:21 Pulse 96 08/14/25 13:21 Resp 16 08/14/25 13:21 BP 87/57 08/14/25 13:21 Pulse Ox 96 08/14/25 13:21 O2 Del Method Room Air 08/14/25 13:21 Discharge Plan Discharge Patient Disposition: Home Condition: Stable Prescriptions: Continued sertraline 20 mg/mL concentrate 20 mg PO QAM trazodone 50 mg tablet 50 mg PO BEDTIME ketoconazole 2 % cream 1 applic topical .at bedtime Qty: 60 0RF hydroxyzine pamoate 25 mg Capsule 50 mg PO Q6H PRN (Reason: Anxiety) 30 Days Qty: 120 1RF prazosin 2 mg capsule 2 mg PO BEDTIME 30 Days Qty: 30 1RF aripiprazole 10 mg tablet,disintegrating 10 mg PO QAM Bion Tears (PF) 0.1-0.3 % Dropperette 2 drp OPHTHALMIC (EYE) Q4H PRN (Reason: Dry Eyes) azelastine 137 mcg (0.1 %) spray,non-aerosol 2 spray intranasal BID norgestimate-ethinyl estradiol [Tri-Sprintec (28)] 0.18/0.215/0.25 mg-0.035mg (28) tablet 1 tab PO DAILY metformin 500 mg tablet extended release 24 hr 500 mg PO BID Lybalvi 10-10 mg Tablet 1 tab PO QPM Discharge Order = DC NOW: Discharge Order (Routine); Ordered 08/14/25 Ordered By: Elias Gan Referrals: FERNANDEZ Romo, PMHNP-ERI [Other] JR Maurice [Other] - 08/14/25 4:00 pm Brennan Velazquez FNP-C [Primary Care Provider, Family Practice] Discharge Diet: Usual diet Discharge Activity: Resume usual activity Patient Instructions: Opioid Safety, Patient Portal & Leanna Instructions Discharge Attestations NPU Time Spent in Discharge Care*: less than 30 min Specific Discharge Activities: Specific discharge activities: educating patient, discussing with embedded case manager/social workers/dc planners and documenting/other paperwork Coding Level of Care Code Acute Code for Chg Fwd Diagnoses Dysthymic disorder F34.1 PTSD (post-traumatic stress disorder) F43.10 Oppositional defiant disorder F91.3 Suicidal ideation R45.851 Depression F32.A Intellectual disability F79
[2025-08-14 13:40] VITALS: BP 87/57; PULSE 96; RESP 16; TEMP 36.4; O2SAT 96
--- NOTE | 2025-08-14 14:07 | PC.NURSE ---
Report given to Tamara at [facility] and DC -papers faxed to
== END 2025-08-14 16:11 | disposition home or self-care (01) | DRG 918 ==
LOC: ER 17:27 → NP 19:17
PROVIDERS: Admitting Provider Psychiatry & Neurology Psychiatry; Emergency Provider Physician Assistant; PCP Nurse Practitioner; Visit Provider Psychiatry & Neurology Psychiatry
DX: T54.92XA Toxic effect of unspecified corrosive substance, intentional self-harm, initial encounter (principal); R45.851 Suicidal ideations; F33.9 Major depressive disorder, recurrent, unspecified; Y92.099 Unspecified place in other non-institutional residence as the place of occurrence of the external cause; F34.1 Dysthymic disorder; F43.10 Post-traumatic stress disorder, unspecified; F91.3 Oppositional defiant disorder; F79 Unspecified intellectual disabilities; E78.2 Mixed hyperlipidemia; F41.1 Generalized anxiety disorder; Z81.8 Family history of other mental and behavioral disorders; Z81.3 Family history of other psychoactive substance abuse and dependence; E66.9 Obesity, unspecified
CPT/HCPCS: 36415; 80053; 80306; 80307; 81001; 81025; 85025; 87086; 97150; 97165; 99285; J9999; Q0162

== ENCOUNTER 2025-11-02 18:25 | Emergency (ER) | payer MEDICAID, SELFPAY ==
[2025-11-02 18:28] VITALS: BP 142/89; PULSE 106; RESP 18; TEMP 36.8; O2SAT 98; BMI 39.2
--- OUTSIDE RECORDS SUMMARY | 2025-11-02 18:28 | XMS_ITS | Encounter Summary ---
Author Organization [facility] Address [address] [place] [address] Care Team Providers Care Signaler Name Role Phone Gisela Porras MD Primary Care Provider [phone] Encounter Details Date Type Department Care Team (Late st Contact Info) Description 10/10/2006 Outpatient Historical [facility] Cruzito Mccord, DO [address] [place], [place] [id number] Vomiting Alone (Primary Dx) Social History Tobacco Use Types Packs/Day Years Used Date Smoking Tobacco: Never Assessed Comments Unknown Sex and Gender Information Value Date Recorded Sex Assigned at Not on file Legal Sex Female 4:05 AM CLOCK MECHANIC Gender Identity Not on file Sexual Orientation Not on file documented as of this encounter Plan of Treatment Not on file documented as of this encounter Procedures Procedure Name Priority Date/Time Associated Diagnosis Comments URINALYSIS MICROSCOPY ONLY Routine 10/10/2006 2:23 PM CLOCK MECHANIC URINALYSIS W/REFLEX MICROSCOPIC Routine 10/10/2006 2:23 PM CLOCK MECHANIC documented in this encounter Results * (ABNORMAL) URINALYSIS MICROSCOPY ONLY (10/10/2006 2:23 PM CLOCK MECHANIC) WBC URINE None Seen 0 - 2 INTERFACE SYSTEM RBC UA None Seen 0 - 2 INTERFACE SYSTEM HYALINE CAST None Seen 0 - 2 INTERFA CE SYSTEM BACTERIA UA Small(A) None Seen INTERFAC E SYSTEM 10/10/2006 2:23 PM CLOCK MECHANIC us Cruzito Mujica DO URINE ORDERABLES Final Result Performing Organization Address City/[facility] Co de Phone Number INTERFACE SYSTEM Refer to clinic/hospital department * (ABNORMAL) URINALYSIS (10/10/2006 2:23 PM CLOCK MECHANIC) COLOR UA Yellow Straw INTERFACE SYSTEM Comment:CATH [...] Yes(A) No INTERFACE SYSTEM 10/10/2006 2:23 PM CLOCK MECHANIC us Cruzito Mujica DO URINE ORDERABLES Final Result Performing Organization Address City/[facility] Co de Phone Number INTERFACE SYSTEM Refer to clinic/hospital department documented in this encounter Visit Diagnoses Diagnosis Vomiting alone- Primary documented in this encounter Care Teams Signaler Relationship Specialty Start Date End Date Gisela Porras MD [address] [facility] [address] [place] [address] PCP - General Family Practice 11/04/16 documented as of this encounter
--- OUTSIDE RECORDS SUMMARY | 2025-11-02 18:28 | XMS_ITS | Encounter Summary ---
Author Organization [facility] Address [address] [place] [address] Care Team Providers Care Hematology Technologist Name Role Phone Gisela Porras MD Primary Care Provider Encounter Details Date Type Department Care Team (Late st Contact Info) Description 10/19/2007 Outpatient Historical [facility] Op[facility] [place] [address] Richmond Newsome MD [address] [place] [address] Social History Tobacco Use Types Packs/Day Years Used Date Smoking Tobacco: Never Assessed Comments Unknown Sex and Gender Information Value Date Recorded Sex Assigned at Not on file Legal Sex Female 4:05 AM PEARL GLUE OPERATOR Gender Identity Not on file Sexual Orientation Not on file documented as of this encounter Plan of Treatment Not on file documented as of this encounter Visit Diagnoses Not on filedocumented in this encounter Care Teams Hematology Technologist Relationship Specialty Start Date End Date Gisela Porras MD [address] [facility] [address] [place] [address] PCP - General Family Practice 11/04/16 documented as of this encounter
--- OUTSIDE RECORDS SUMMARY | 2025-11-02 18:28 | XMS_ITS | Encounter Summary ---
Author Organization [facility] Address [address] [facility] [place] [address] Care Team Providers Care Through Freight Engineer Name Role Phone Gisela Porras MD Primary Care Provider Encounter Details Date Type Department Care Team (Latest Contact Info) Description 2005 Outpatient Historical [facility] acks [address] [place] [phone] Monroe Rdz MD NO ADDRESS ON FILE Routine child health exam (Primary Dx) Social History Tobacco Use Types Packs/Day Years Used Date Smoking Tobacco: Never Assessed Comments Unknown Sex and Gender Information Value Date Recorded Sex Assigned at Not on file Legal Sex Female 4:05 AM COSTUME RENTAL CLERK Gender Identity Not on file Sexual Orientation Not on file documented as of this encounter Plan of Treatment Not on file documented as of this encounter Visit Diagnoses Diagnosis Routine child health exam- Primary Routine infant or child health check documented in this encounter Care Teams Through Freight Engineer Relationship Specialty Start Date End Date Gisela Porras MD [address] [facility] [address] [place] [address] PCP - General Family Practice 11/04/16 documented as of this encounter
--- OUTSIDE RECORDS SUMMARY | 2025-11-02 18:28 | XMS_ITS | Encounter Summary ---
Author Organization [facility] Address [address] [place] [address] Care Team Providers Care Wind Field Manager Name Role Phone Gisela Porras MD Primary Care Provider Encounter Details Date Type Department Care Team (Latest Contact Info) Description 10/13/2006 Outpatient Historical [facility] [address] [place] [address] Richmond Newsome MD [address] [place] [address] Unspecified Congenital Cataract (Primary Dx) Social History Tobacco Use Types Packs/Day Years Used Date Smoking Tobacco: Never Assessed Comments Unknown Sex and Gender Information Value Date Recorded Sex Assigned at Not on file Legal Sex Female 4:05 AM CAR AUDIO INSTALLER Gender Identity Not on file Sexual Orientation Not on file documented as of this encounter Plan of Treatment Not on file documented as of this encounter Visit Diagnoses Diagnosis Unspecified congenital cataract- Primary documented in this encounter Care Teams Wind Field Manager Relationship Specialty Start Date End Date Gisela Porras MD [address] [facility] [address] [place] [address] PCP - General Family Practice 11/04/16 documented as of this encounter
--- OUTSIDE RECORDS SUMMARY | 2025-11-02 18:28 | XMS_ITS | Encounter Summary ---
Author Organization [facility] Address [address] [facility] [place] [address] Care Team Providers Care Micro Photographer Name Role Phone Gisela Porras MD Primary Care Provider [phone] Encounter Details Date Type Department Care Team (Latest Contact Info) Description 2005 Outpatient Historical [facility] acks [address] [place] [phone] Monroe Rdz MD NO ADDRESS ON FILE FOLLOW-UP EXAM NOS (Primary Dx) Social History Tobacco Use Types Packs/Day Years Used Date Smoking Tobacco: Never Assessed Comments Unknown Sex and Gender Information Value Date Recorded Sex Assigned at Not on file Legal Sex Female 4:05 AM WORKERS COMPENSATION EXAMINER Gender Identity Not on file Sexual Orientation Not on file documented as of this encounter Plan of Treatment Not on file documented as of this encounter Visit Diagnoses Diagnosis Unspecified follow-up examination- Primary documented in this encounter Care Teams Micro Photographer Relationship Specialty Start Date End Date Gisela Porras MD [address] [facility] [address] [place] [address] PCP - General Family Practice 11/04/16 documented as of this encounter
--- OUTSIDE RECORDS SUMMARY | 2025-11-02 18:28 | XMS_ITS | Encounter Summary ---
Author Organization [facility] Address [address] [place] [address] Care Team Providers Care Associate Data Scientist Name Role Phone Gisela Porras MD Primary Care Provider Encounter Details Date Type Department Care Team (Latest Contact Info) Description 03/18/2006 Outpatient Historical [facility] acks [address] [place] [address] Monroe Rdz MD NO ADDRESS ON FILE Routine Child Health Exam (Primary Dx); Vaccin Hem Influenza B; Vaccin Strep Pneumoniae; Vac-Dis Combinations NEC Social History Tobacco Use Types Packs/Day Years Used Date Smoking Tobacco: Never Assessed Comments Unknown Sex and Gender Information Value Date Recorded Sex Assigned at Not on file Legal Sex Female 4:05 AM DENTAL NURSE Gender Identity Not on file Sexual Orientation [...] diseases documented in this encounter Care Teams Associate Data Scientist Relationship Specialty Start Date End Date Gisela Porras MD [address] [facility] [address] [place] [address] PCP - General Family Practice 11/04/16 documented as of this encounter
--- OUTSIDE RECORDS SUMMARY | 2025-11-02 18:28 | XMS_ITS | Clinical Summary ---
Author Organization [facility] Address [address] [address] Care Team Providers Care Bi Manager Name Role Phone Gisela Porras MD Primary Care Provider Allergies No known active allergies Medications medroxyPROGESTERo ne (DEPO-PROVERA) 150 mg/mL SyringeIndication s:Encounter for initial prescription of contraceptive pills Inject 1 mL (150 mg) by intramuscular injection every 90 days. 1 mL 3 02/10/20 19 Active fluticasone propionate (FLONASE) 50 mcg/spray [place], Suspension nasal inhaler Administer 2 Sprays in [...] on file Legal Sex Female 4:05 AM LABORATORY ASST Gender Identity Not on file Sexual Orientation [...] Mass Index 18.93 05/17/2019 3:22 PM CDT Plan of Treatment Health Maintenance Due Date [...] exists INFLUENZA VACCINE (#1) 2025 Insurance MEDICAID [place] Care Teams Bi Manager Relationship Specialty Start Date End Date Gisela Porras MD [address] [address] PCP - General Family Practice 11/04/16
--- OUTSIDE RECORDS SUMMARY | 2025-11-02 18:28 | XMS_ITS | Encounter Summary ---
Author Organization [facility] Address [address] [facility] [place] [address] Care Team Providers Care Buckle Sewer Machine Name Role Phone Gisela Porras MD Primary Care Provider Encounter Details Date Type Department Care Team (Latest Contact Info) Description 05/06/2006 Outpatient Historical [facility] acks [address] [place] [address] Monroe Rdz MD NO ADDRESS ON FILE Routine Child Health Exam (Primary Dx); Vaccin Strep Pneumoniae; Vac-Dis Combinations NEC Social History Tobacco Use Types Packs/Day Years Used Date Smoking Tobacco: Never Assessed Comments Unknown Sex and Gender Information Value Date Recorded Sex Assigned at Not on file Legal Sex Female 4:05 AM FIELD MARKETING MANAGER Gender Identity Not on file [...] diseases documented in this encounter Care Teams Buckle Sewer Machine Relationship Specialty Start Date End Date Gisela Porras MD [address] [facility] [address] [place] [phone] PCP - General Family Practice 11/04/16 documented as of this encounter
--- OUTSIDE RECORDS SUMMARY | 2025-11-02 18:28 | XMS_ITS | Encounter Summary ---
Author Organization [facility] Address [address] [place] [address] Care Team Providers Care Railway Patrol Officer Name Role Phone Gisela Porras MD [...] file Legal Sex Female 4:05 AM FIRE LOSS PREVENTION ENGINEER Gender Identity Not on file Sexual Orientation Not on file documented as of this encounter Plan of Treatment Not on file documented as of this encounter Procedures Procedure Name Priority Date/Time Associated Diagnosis Comments METABOLIC SCREEN Routine 2005 12:15 AM FIRE LOSS PREVENTION ENGINEER POC GLUCOSE Routine 2005 8:49 PM FIRE LOSS PREVENTION ENGINEER POC GLUCOSE Routine 2005 3:41 PM FIRE LOSS PREVENTION ENGINEER POC GLUCOSE Routine 2005 3:10 PM FIRE LOSS PREVENTION ENGINEER DRUG SCREEN, MECONIUM Routine 2005 10:03 AM FIRE LOSS PREVENTION ENGINEER documented in this encounter Results * METABOLIC SCREEN (2005 12:15 AM FIRE LOSS PREVENTION ENGINEER) PKU Sent to Reference Lab INTERFACE SYSTEM 2005 12:1 5 AM FIRE LOSS PREVENTION ENGINEER us Monroe Rdz MD CHEMISTRY ORDERABLES Final Res ult Performing Organization Address City/[facility] Co de Phone Number INTERFACE SYSTEM Refer to clinic/hospital department * POC GLUCOSE (2005 8:49 PM FIRE LOSS PREVENTION ENGINEER) GLUCOSE POC 72 50 - 80 mg/dL INTERFACE SYSTEM 2005 8:49 PM FIRE LOSS PREVENTION ENGINEER us Monroe Rdz MD POINT OF CARE TESTING Final Re sult Performing Organization Address [facility] de Phone Number INTERFACE SYSTEM Refer to clinic/hospital department * POC GLUCOSE (2005 3:41 PM FIRE LOSS PREVENTION ENGINEER) GLUCOSE POC 62 50 - 80 mg/dL INTERFACE SYSTEM 2005 3:41 PM FIRE LOSS PREVENTION ENGINEER us Jamir Hilton MD POINT OF CARE TESTING Analia l Result Performing Organization Address [facility] de Phone Number INTERFACE SYSTEM Refer to clinic/hospital department * (ABNORMAL) POC GLUCOSE (2005 3:10 PM FIRE LOSS PREVENTION ENGINEER) GLUCOSE POC 48(L) 50 - 80 mg/dL INTERFACE SYSTEM 2005 3:10 PM FIRE LOSS PREVENTION ENGINEER us Jamir Hilton MD POINT OF CARE TESTING Analia l Result Performing Organization Address [facility] de Phone Number INTERFACE SYSTEM Refer to clinic/hospital department * DRUG SCREEN, MECONIUM (2005 10:03 AM FIRE LOSS PREVENTION ENGINEER) DRUG SCREEN, MECONIUM Sent to Reference Lab INTERFACE SYSTEM 2005 10:0 3 AM FIRE LOSS PREVENTION ENGINEER us Jamir Hilton MD BODY FLUIDS AND STOOLS COM Final Result INTERFACE SYSTEM Refer to clinic/hospital department documented in this encounter Visit Diagnoses Diagnosis Single liveborn, born in hospital, delivered without mention of delivery- Primary documented in this encounter Care Teams Railway Patrol Officer Relationship Specialty Start Date End Date Gisela Porras MD [address] [address] PCP - General Family Practice 11/04/16 documented as of this encounter
--- OUTSIDE RECORDS SUMMARY | 2025-11-02 18:28 | XMS_ITS | Encounter Summary ---
Author Organization [facility] Address [address] [place] [address] Care Team Providers Care Four Corner Former Machine Operator Name Role Phone Gisela Porras MD Primary Care Provider Encounter Details Date Type Department Care Team (Latest Contact Info) Description 11/24/2008 Inpatient Historical [facility] [place] [address] [place] [address] Jamir Reyes, DDS [address] [place] [address] Unspecified Dental Caries (Primary Dx) Social History Tobacco Use Types Packs/Day Years Used Date Smoking Tobacco: Never Assessed Comments Unknown Sex and Gender Information Value Date Recorded Sex Assigned at Not on file Legal Sex Female 4:05 AM CIVIL CAD DESIGNER Gender Identity Not on file Sexual Orientation Not on file documented as of this encounter Plan of Treatment Not on file documented as of this encounter Visit Diagnoses Diagnosis Unspecified dental caries- Primary documented in this encounter Care Teams Four Corner Former Machine Operator Relationship Specialty Start Date End Date Gisela Porras MD [address] [facility] [address] [place] [address] PCP - General Family Practice 11/04/16 documented as of this encounter
--- OUTSIDE RECORDS SUMMARY | 2025-11-02 18:28 | XMS_ITS | Encounter Summary ---
Author Organization [facility] Address [address] [place] [address] Care Team Providers Care Chief Juvenile Probation Officer Name Role Phone Gisela Porras MD Primary Care Provider [phone] Encounter Details Date Type Department Care Team (Latest Contact Info) Description 08/08/2006 Outpatient Historical [facility] Monroe Rdz MD NO ADDRESS ON FILE Acute Upper Respiratory Infections of Unspecified Site (Primary Dx) Social History Tobacco Use Types Packs/Day Years Used Date Smoking Tobacco: Never Assessed Comments Unknown Sex and Gender Information Value Date Recorded Sex Assigned at Not on file Legal Sex Female 4:05 AM IC DESIGNER [employer] Gender Identity Not on file Sexual Orientation Not on file documented as of this encounter Plan of Treatment Not on file documented as of this encounter Visit Diagnoses Diagnosis Acute upper respiratory infections of unspecified site- Primary documented in this encounter Care Teams Chief Juvenile Probation Officer Relationship Specialty Start Date End Date Gisela Porras MD [address] [place] [address] PCP - General Family Practice 11/04/16 documented as of this encounter
--- OUTSIDE RECORDS SUMMARY | 2025-11-02 18:28 | XMS_ITS | Encounter Summary ---
Author Organization [facility] Address [address] [place] [address] Care Team Providers Care Transportation Design Engineer Name Role Phone Gisela Porras MD Primary Care Provider [phone] Encounter Details Date Type Department Care Team (Latest Contact Info) Description 10/10/2006 Outpatient Historical [facility] [address] [place] [address] Fabi Briones MD NO ADDRESS ON FILE Infectious Colitis, Enteritis, and Gastroenteritis (Primary Dx) Social History Tobacco Use Types Packs/Day Years Used Date Smoking Tobacco: Never Assessed Comments Unknown Sex and Gender Information Value Date Recorded Sex Assigned at Not on file Legal Sex Female 4:05 AM RAILROAD BAGGAGE PORTER Gender Identity Not on file Sexual Orientation Not on file documented as of this encounter Plan of Treatment Not on file documented as of this encounter Visit Diagnoses Diagnosis Infectious colitis, enteritis, and gastroenteritis- Primary documented in this encounter Care Teams Transportation Design Engineer Relationship Specialty Start Date End Date Gisela Porras MD [address] [facility] 60 [place] [address] PCP - General Family Practice 11/04/16 documented as of this encounter
--- OUTSIDE RECORDS SUMMARY | 2025-11-02 18:29 | XMS_ITS | Encounter Summary ---
Author Organization [facility] Address [address] [place] [address] Care Team Providers Care Personal Health Coach Name Role Phone Gisela Porras MD Primary Care Provider [phone] Encounter Details Date Type Department Care Team (Latest Contact Info) Description 01/28/2006 Outpatient Historical [id number] [place] [address] Frank Stanton MD NO ADDRESS ON FILE Infectious Colitis, Enteritis, and Gastroenteritis (Primary Dx); Edema Social History Tobacco Use Types Packs/Day Years Used Date Smoking Tobacco: Never Assessed Comments Unknown Sex and Gender Information Value Date Recorded Sex Assigned at Not on file Legal Sex Female 4:05 AM STUNT MAN Gender Identity Not on file Sexual Orientation Not on file documented as of this encounter Plan of Treatment Not on file documented as of this encounter Visit Diagnoses Diagnosis Infectious colitis, enteritis, and gastroenteritis- Primary Edema documented in this encounter Care Teams Personal Health Coach Relationship Specialty Start Date End Date Gisela Porras MD [address] [facility] [address] [place] [address] PCP - General Family Practice 11/04/16 documented as of this encounter
--- OUTSIDE RECORDS SUMMARY | 2025-11-02 18:29 | XMS_ITS | Encounter Summary ---
Author Organization [facility] Address [address] [place] [address] Care Team Providers Care Therapy Coordinator Name Role Phone Gisela Porras MD Primary Care Provider Encounter Details Date Type Department Care Team (Latest Contact Info) Description 01/29/2006 Outpatient Historical [address] [place] [phone] Monroe Rdz MD NO ADDRESS ON FILE Infectious Colitis, Enteritis, and Gastroenteritis (Primary Dx); Edema Social History Tobacco Use Types Packs/Day Years Used Date Smoking Tobacco: Never Assessed Comments Unknown Sex and Gender Information Value Date Recorded Sex Assigned at Not on file Legal Sex Female 4:05 AM SHAPER AND PRESSER Gender Identity Not on file Sexual Orientation Not on file documented as of this encounter Plan of Treatment Not on file documented as of this encounter Visit Diagnoses Diagnosis Infectious colitis, enteritis, and gastroenteritis- Primary Edema documented in this encounter Care Teams Therapy Coordinator Relationship Specialty Start Date End Date Gisela Porras MD [address] [facility] [address] [place] [address] PCP - General Family Practice 11/04/16 documented as of this encounter
--- OUTSIDE RECORDS SUMMARY | 2025-11-02 18:29 | XMS_ITS | Encounter Summary ---
Author Organization [facility] Address [address] [facility] [place] [address] Care Team Providers Care Chief Lock Tender Operator Name Role Phone Gisela Porras MD Primary Care Provider Encounter Details Date Type Department Care Team (Latest Contact Info) Description 2005 Outpatient Historical [facility] [address] 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
--- OUTSIDE RECORDS SUMMARY | 2025-11-02 18:29 | XMS_ITS | Encounter Summary ---
Author Organization [facility] Address [address] [place] [address] Care Team Providers Care Business Agent Name Role Phone Gisela Porras MD Primary Care Provider Encounter Details Date Type Department Care Team (Latest Contact Info) Description 01/01/2006 Outpatient Historical [facility] 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
--- OUTSIDE RECORDS SUMMARY | 2025-11-02 18:29 | XMS_ITS | Encounter Summary ---
Author Organization [facility] Address [address] [facility] [place] [address] Care Team Providers Care Teaching Music Lessons Name Role Phone Gisela Porras MD Primary Care Provider [phone] Encounter Details Date Type Department Care Team (Latest Contact Info) Description 2005 Outpatient Historical [facility] [address] 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
[2025-11-02 19:31] LABS: Hematocrit 39.8 % (36-47); Hemoglobin 13.20 g/dL (12.4-14.8); Mean Corpuscular HGB Conc 33.2 g/dL (30-55); Mean Corpuscular Hemoglobin 28.3 pg (27-33); Mean Corpuscular Volume 85.2 fl (85-98); Nucleated Red Blood Cells % 0 %; Platelet Count 302 10^3/cmm (157-399); Red Blood Count 4.67 10^6/uL (3.85-5.65); White Blood Count 8.15 10^3/uL (4.5-13.0)
[2025-11-02 19:42] LABS: HCG, Serum Qual Negative (Negative)
[2025-11-02 19:56] LABS: Alanine Aminotransferase 22 U/L (0-33); Albumin Level 4.1 g/dL (3.5-5.2); Alkaline Phosphatase 70 U/L (35-105); Anion Gap 15.8 (5-19); Aspartate Amino Transferase 21 U/L (0-32); Blood Urea Nitrogen 9 mg/dL (6-20); Calcium 8.9 mg/dL (8.5-10.5); Carbon Dioxide 25 mmol/L (22-29); Chloride 102 mmol/L (98-107); Globulin 3.1 g/dL (1.3-4.6); Glucose 78 mg/dL (65-115); Osmolality Calculated 286 mOsm/kg (285-295); Potassium 3.8 mmol/L (3.5-5.1); Sodium 139 mmol/L (136-145); Thyroid Stimulating Hormone 3.94 uIU/mL (0.27-4.20); Total Protein 7.2 g/dL (6.6-8.7)
[2025-11-02 20:01] LABS: Acetaminophen < 5.0 ug/mL (10-30); Alcohol Level < 10 mg/dL (0-10); Salicylate < 0.3 mg/dL (3-10)
[2025-11-02 21:06] LABS: Glucose Urine UA Negative (Normal); Nitrate Urine Negative (Negative)
[2025-11-02 21:09] LABS: Universal Test for UA Present (0)
[2025-11-02 21:18] LABS: PCP Screen Urine Negative (Negative)
[2025-11-02 21:22] LABS: Specific Gravity, Urine 1.033 (1.005-1.030)
[2025-11-02 21:42] LABS: Respiratory Syncytial Virus Ce NEGATIVE (Negative); SARS-CoV-2 PCR NEGATIVE (Negative)
--- NOTE | 2025-11-03 04:50 | ED.C_ITS ---
HPI - Psych 2 General: Chief Complaint: Psychiatric Symptoms Stated Complaint: Feeling anxiety Time Seen by Provider: 11/02/25 18:37 History of Present Illness: Patient is a 20-year-old female with a history of ODD, anxiety, HLD who presents with suicidal ideation that was seemingly in response to having a conversation with her mother. Patient is currently in a senior living with a scheduled phone calls to her mother, today was not a day for a phone call and called her and patient reports being very upset after told that she would not see her for a few days, patient states in response to that she was going to cut her throat with a knife . She also proceeded to take the medical cabinet keys away from staff and threatened to not get them back unless they take her to the hospital. She denies any physical symptoms, she is currently menstruating. Associated symptoms: Reports suicidal ideation Related Data Home Medications ?Medication ?Instructions ?Recorded ?Confirmed norgestimate-ethinyl estradiol 1 tab PO DAILY 05/01/25 10/17/25 0.18mg/0.215mg/0.25mg-0.035mg(28)tablet (Tri-Sprintec (28)) aripiprazole 10 mg disintegrating 10 mg PO QAM 5 10/17/25 tablet dextran 70-hypromellose (PF) 0.1 2 drp ophthalmic (eye ) Q4H PRN Dry 07/08/25 10/17/25 %-0.3 % eye drops in a dropperette Eyes (Bion Tears (PF)) trazodone 50 mg tablet 50 mg PO BEDTIME Sleep 07/3110/17/25 olanzapine 10 mg-samidorphan 10 mg 1 tab PO QPM 10/17/25 tablet (Lybalvi) Previous Rx's ?Medication ?Instructions ?Recorded hydroxyzine pamoate 25 mg capsule 50 mg (2 x 25 mg) PO Q6H PRN 06/02/25 Anxiety 30 days #120 caps prazosin 2 mg capsule 2 mg PO BEDTIME 30 days #30 caps 06/02/25 sertraline 20 mg/mL oral 150 mg (7.5 mL) PO QAM #60 m L 08/14/25 concentrate azelastine 137 mcg (0.1 %) nasal 2 spray intranasal BI D allergies 08/18/25 spray #30 mL acarbose 25 mg tablet 25 mg PO TID #90 tabs ketoconazole 2 % topical cream 1 applic topical .at be dtime #60 10/10/25 grams Allergies Allergy/AdvReac Type Severity Reaction Status Date / Time No Known Allergies Allergy Verified 11/02/25 18:34 Review of Systems 2 General: Reports: 10 or more systems reviewed and unremarkable except in HPI and below Const: Denies: fever(s) or chills Eyes: Denies: change in vision or eye discharge Card: Denies: chest pain, palpitations or swelling of feet/ankles Resp: Denies: dyspnea or productive cough GI: Denies: abdominal pain or diarrhea Musc: Denies: neck pain or back pain Skin/Breast: Denies: rash or jaundice Neuro: Denies: headache(s), numbness in extremities or weakness in extremities Psych: Reports: suicidal ideation Dar/Lymph: Denies: easy bruising or easy bleeding PFSH ED 2 PFSH: Medical History (Updated 11/02/25 @ 21:40 by Abel Braga DO) Obesity (BMI 30-39.9) Hyperlipidemia, mixed Oppositional defiant disorder Generalized anxiety disorder Pneumonia Cerumen impaction Oral contraceptive pill surveillance Sleep disorder Environmental and seasonal allergies Surgical History No history of previous surgery Family History Other Adopted Social History Smoking and tobacco/nicotine status: former use of tobacco/nicotine Second hand smoke exposure: No Alcohol intake: never Substance/Drug Use: never Adopted: Yes Caregiver/support person: Yes Lives independently: No Household members: caregiver Housing: House Marital status: Single Number of children: 0 Highest education level completed: 12th Grade, No Diploma service: No Current occupational status: disabled Pets and animals: No Do you think of yourself as: Straight/Heterosexual Current gender identity: Female Female Reproductive History: Date of last menstrual period: 11/01/25 Physical Exam 2 Narrative: EXAM NARRATIVE: Patient overall well-appearing, afebrile and vital signs stable on arrival, no acute distress. head normocephalic, PERRL, moist mucous membranes, no cervical LAD. breathing comfortably on RA, saturating well, clear BL and no adventitious breath sounds, able to speak in full sentences without getting SOB, no signs of respiratory distress. NSR with no murmurs, no leg swelling, 2+ pulses throughout, good cap refill. Abdomen soft, nontender, nondistended, no localizing or peritonitic signs, no overlying skin changes, no CVA ttp. 4 extremities without apparent deformity or injury. GCS 15, AAOx4, able to answer questions and follow commands appropriately, moving all 4 extremities symmetrically and spontaneoulsy. Flat affect, passive suicidal ideation, frustrated that event from prior, logical thought pattern. Course 2 Vital Signs: Vital signs: Vital Signs Temperature 98.3 F 11/02/25 18:28 Pulse Rate 106 H 11/02/25 18:28 Respiratory Rate 18 11/02/25 18:28 Blood Pressure 142/89 11/02/25 18:28 Pulse Oximetry 98 11/02/25 18:28 Oxygen Delivery Me thod Room Air 11/02/25 18:28 MDM - Psych Medical Decision Making -ddx: Suicidal ideation, depression, secondary gain, anxiety, stressed social situation - Patient overall well-appearing, with seeming emotional triggering episode after discussion with her mother, has apparently had these many times, is currently at a facility and had threatened to not give keys back, she was taken here, no actual measures have been taken for her to hurt herself. They report she has been compliant on her medication. Will get medical workup/ingestion labs and reevaluate for need for inpatient psychiatry. - Labs ultimately reassuring for no signs of toxidrome, no endorgan dysfunction. Had a very long discussion with her mother who states she currently sees her twice a week and they are planning on seeing her in a few days, because of their strained social situation, she states they cannot live together right now because of previous violent behavior, guardian here states she will be monitored for 24 hours, she has done this prior to get attention and so with very close support and a watchful eye, she was able to be discharged in stable condition, strict return precautions given. Lab Data 11/02/25 19:15 11/02/25 19:15 Laboratory Results WBC 8.15 10^3/uL (4.5-13.0) 11/02/25 19:15 RBC 4.67 10^6/uL (3.85-5.65) 11/02/25 19:15 Hgb 13.20 g/dL (12.4-14.8) 11/02/25 19:15 Hct 39.8 % (36-47) 11/02/25 19:15 MCV 85.2 fl (85-98) 11/02/25 19:15 MCH 28.3 pg (27-33) 11/02/25 19:15 MCHC 33.2 g/dL (30-55) 11/02/25 19:15 RDW 13.2 % (12.1-15.1) 11/02/25 19:15 Plt Count 302 10^3/cmm (157-399) 11/02/25 19:15 MPV 9.3 fL (7.4-10.4) 11/02/25 19:15 Neut % (Auto) 51.0 % 11/02/25 19:15 Lymph % (Auto) 36.9 % 11/02/25 19:15 [place] % (Auto) 10.9 % 11/02/25 19:15 Eos % (Auto) 0.7 % 11/02/25 19:15 Baso % (Auto) 0.4 % 11/02/25 19:15 Neut # (Auto) 4.15 10^3/uL (1.8-8.0) 11/02/25 19:15 Lymph # (Auto) 3.0 10^3/uL (1.5-6.5) 11/02/25 19:15 [place] # (Auto) 0.9 10^3/uL (0.2-0.9) 11/02/25 19:15 Eos # (Auto) 0.1 10^3/uL (0.0-0.8) 11/02/25 19:15 Baso # (Auto) 0.0 10^3/uL (0.0-0.1) 11/02/25 19:15 Nucleated RBC % (auto) 0 % 11/02/25 19:15 Nucleated RBCs # 0.0 /100WBC 11/02/25 19:15 Sodium 139 mmol/L (136-145) 11/02/25 19:15 Potassium 3.8 mmol/L (3.5-5.1) 11/02/25 19:15 Chloride 102 mmol/L (98-107) 11/02/25 19:15 Carbon Dioxide 25 mmol/L (22-29) 11/02/25 19:15 Anion Gap 15.8 (5-19) 11/02/25 19:15 BUN 9 mg/dL (6-20) 11/02/25 19:15 Creatinine 0.6 mg/dL (0.5-0.9) 11/02/25 19:15 GFR Calculation 127.5 mL/min (90-130) 11/02/25 19:15 Glucose 78 mg/dL (65-115) 11/02/25 19:15 Calculated Osmolality 286 mOsm/kg (285-295) 11/02/25 19:15 Calcium 8.9 mg/dL (8.5-10.5) 11/02/25 19:15 Total Bilirubin 0.2 mg/dL (0.15-1.2) 11/02/25 19:15 AST 21 U/L (0-32) 11/02/25 19:15 ALT 22 U/L (0-33) 11/02/25 19:15 Alkaline Phosphatase 70 U/L (35-105) 11/02/25 19:15 Total Protein 7.2 g/dL (6.6-8.7) 11/02/25 19:15 Albumin 4.1 g/dL (3.5-5.2) 11/02/25 19:15 Globulin 3.1 g/dL (1.3-4.6) 11/02/25 19:15 TSH 3.94 uIU/mL (0.27-4.20) 11/02/25 19:15 HCG, Qual Negative (Negative) 11/02/25 19:15 Urine Color [place] (Yellow) A 11/02/25:13 Urine Appearance Cloudy (CLEAR) A 11/02/25 19:13 Urine pH 5.5 (5-7) 11/02/25 19:13 Ur Specific [place] 1.033 (1.005-1.030) H 11/02/25 19:13 Urine Protein 2+ (Negative) A 11/02/25:13 Urine Glucose (UA) Negative (Normal) 11/02/25 19:13 Urine Ketones Trace (Negative) 11/02/25 19:13 Urine Blood 3+ (Negative) A 11/02/25 19:13 Urine Nitrate Negative (Negative) 11/02/25 19:13 Urine Bilirubin Negative (Negative) 11/02/25 19:13 Urine Urobilinogen 1.0 mg/dL (Negative) 11/02/25 19:13 Ur Leukocyte Esterase Trace (Negative) A 11/02/25 19:13 Urine RBC 21-50 /hpf (0-2) H 11/02/25 19:13 Urine WBC 11-20 /hpf (0-5) H 11/02/25 19:13 Ur Squamous Epith Cells 11-20 /hpf (0-5) H 11/02/25 19:13 Amorphous Sediment Not Reportable 11/02/25 19:13 Urine Bacteria 4+ /hpf (NONE) H 11/02/25 19:13 Hyaline Casts 1.65 /lpf 11/02/25 19:13 Salicylates < 0.3 mg/dL (3-10) L 11/02/25 19:15 Urine Opiates Screen Negative ng/mL (Negative) 11/02/25 19:13 Acetaminophen < 5.0 ug/mL (10-30) L 11/02/25 19:15 Ur Barbiturates Screen Negative ng/mL (Negative) 11/02/25 19:13 Ur Phencyclidine Scrn Negative ng/mL (Negative) 11/02/25 19:13 Ur Amphetamines Screen Negative ng/mL (Negative) 11/02/25 19:13 U Benzodiazepines Scrn Positive ng/mL (Negative) H 11/02/25 19:13 Urine Cocaine Screen Negative ng/mL (Negative) 11/02/25 19:13 U Marijuana (THC) Screen Negative ng/mL (Negative) 11/02/25 19:13 Ethyl Alcohol < 10 mg/dL (0-10) 11/02/25 19:15 Influenza A (PCR) Negative (Negative) 11/02/25 19:21 Influenza Type B (PCR) Negative (Negative) 11/02/25 19:21 RSV (PCR) Negative (Negative) 11/02/25 19:21 SARS-CoV-2 (PCR) Negative (Negative) 11/02/25 19:21 No radiology studies performed this visit Discharge Plan Discharge Patient Disposition: Home Clinical Impression: Depression Condition: Stable Prescriptions: No Action trazodone 50 mg tablet 50 mg PO BEDTIME azelastine 137 mcg (0.1 %) spray,non-aerosol 2 spray intranasal BID Qty: 30 2RF acarbose 25 mg tablet 25 mg PO TID Qty: 90 0RF Rx Instructions: take before food ketoconazole 2 % cream 1 applic topical .at bedtime Qty: 60 0RF hydroxyzine pamoate 25 mg Capsule 50 mg PO Q6H PRN (Reason: Anxiety) 30 Days Qty: 120 1RF prazosin 2 mg capsule 2 mg PO BEDTIME 30 Days Qty: 30 1RF aripiprazole 10 mg tablet,disintegrating 10 mg PO QAM Bion Tears (PF) 0.1-0.3 % Dropperette 2 drp OPHTHALMIC (EYE) Q4H PRN (Reason: Dry Eyes) norgestimate-ethinyl estradiol [Tri-Sprintec (28)] 0.18/0.215/0.25 mg-0.035mg (28) tablet 1 tab PO DAILY Lybalvi 10-10 mg Tablet 1 tab PO QPM sertraline 20 mg/mL concentrate 150 mg PO QAM Qty: 60 1RF Discharge Orders: Discharge ED (Routine); Ordered 11/02/25 Ordered By: Abel Braga Referrals: Brennan Velazquez, ENVIRONMENTAL PROTECTION INSPECTOR-C [Primary Care Provider, Family Practice] Discharge Diet: Usual diet Discharge Activity: Resume usual activity Patient Instructions: Opioid Safety, Pain Management, Patient Portal & Leanna Instructions Activity Restrictions/Additional Instructions: You were seen for your depression, you were evaluated with labs that did not have any medical concerns. After discussions it was deemed best to have you return to your home and continue your medications as normal and your parents will be there to see you on Thursday. Print Language: [place] Coding Level of Care Code ED Satellite Manager for Carlyn Grullon
== END 2025-11-02 21:46 | disposition home or self-care (01) ==
PROVIDERS: Emergency Provider Student in an Organized Health Care Education/Training Program; PCP Nurse Practitioner
DX: F32.A Depression, unspecified (principal); Z11.52 Encounter for screening for COVID-19; Z87.891 Personal history of nicotine dependence; E78.2 Mixed hyperlipidemia
CPT/HCPCS: 36415; 80053; 80306; 80307; 81001; 84443; 84703; 85025; 87637; 99285; J9999